=== PATIENT | male | born 1965 | race African-American/Black ===

== ENCOUNTER 2017-01-07 08:52 | Inpatient (IN) | payer OTHER ==
[2017-01-07 11:25] VITALS: BMI 24.9
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
[2017-01-07] MEDS ORDERED: chlordiazePOXIDE HCL 25 MG CAPSULE PO PRN (12:50)
[2017-01-07] MEDS ORDERED: MENTHOL/PHENOL 1 EACH UD MM PRN (12:50)
[2017-01-07] MEDS ORDERED: IBUPROFEN 400 MG TABLET (FP) PO PRN (12:50)
[2017-01-07] MEDS ORDERED: diphenhydrAMINE HCL 50 MG CAPSULE PO PRN (12:50)
[2017-01-07] MEDS ORDERED: MAG HYDROX/AL HYDROX/SIMETH 30 ML UNIT-DOSE CUP PO PRN (12:50)
[2017-01-07] MEDS ORDERED: MAGNESIUM HYDROX 2400MG/30ML ORAL SUSPENSION 30 ML CUP PO PRN (12:50)
[2017-01-07] MEDS ORDERED: NICOTINE POLACRILEX 4 MG GUM BUC PRN (12:50)
[2017-01-07] MEDS ORDERED: P-EPHED 60MG/TRIPROLIDI 2.5MG TABLET PO PRN (12:50)
[2017-01-07] MEDS ORDERED: LOPERAMIDE HCL 2 MG CAPSULE PO PRN (12:50)
[2017-01-07] MEDS ORDERED: MAGNESIUM CITRATE 300 ML BOTTLE PO PRN (12:50)
[2017-01-07] MEDS ORDERED: hydrOXYzine PAMOATE 50 MG CAPSULE (FP) PO PRN (12:50)
[2017-01-07] MEDS ORDERED: guaiFENesin/D-METHORPHAN HB 10 ML UNIT-DOSE CUPS PO PRN (12:50)
[2017-01-07] MEDS ORDERED: chlordiazePOXIDE HCL 25 MG CAPSULE PO ONE (12:58)
[2017-01-07] MEDS: chlordiazePOXIDE HCL 25 MG CAPSULE PO SCH ×2 (17:29→22:43)
[2017-01-07 20:20] LABS: URINE APPEARANCE CLEAR; URINE BILIRUBIN NEGATIVE (NEGATIVE); URINE BLOOD NEGATIVE (NEGATIVE); URINE COLOR YELLOW; URINE GLUCOSE (UA) NEGATIVE (NEGATIVE); URINE KETONE NEGATIVE (NEGATIVE); URINE LEUK ESTERASE NEGATIVE (NEGATIVE); URINE NITRITE NEGATIVE (NEGATIVE); URINE UROBILINOGEN NEGATIVE E.U./dl (0.2-1.0)
[2017-01-07 21:04] LABS: URINE PROTEIN 1+ (NEGATIVE)
[2017-01-07 21:10] LABS: URINE MUCUS MODERATE; URINE RBC 1 /hpf (0-3); URINE WBC 3 /hpf (3-5)
[2017-01-07] MEDS: THIAMINE HCL 100 MG TABLET (FP) PO SCH (22:43)
[2017-01-08 05:17] LABS: HIV 1 & 2 AB NEGATIVE; HIV 1 AGp24 NEGATIVE
[2017-01-08] MEDS: chlordiazePOXIDE HCL 25 MG CAPSULE PO SCH ×4 (06:08→22:18)
--- NOTE | 2017-01-08 09:23 | EKG ---
Test Reason : Blood Pressure : / mmHG Vent. Rate : 075 BPM Atrial Rate : 075 BPM P-R Int : 166 ms QRS Dur : 088 ms QT Int : 380 ms P-R-T Axes : 079 084 056 degrees QTc Int : 424 ms NORMAL SINUS RHYTHM NONSPECIFIC T WAVE ABNORMALITY ABNORMAL ECG WHEN COMPARED WITH ECG OF 25-NOV-2016 17:54, ST NO LONGER ELEVATED IN INFERIOR LEADS NONSPECIFIC T WAVE ABNORMALITY NOW EVIDENT IN LATERAL LEADS Confirmed by PATTI ESCALERA MD ([id number]) on 01/08/2017 9:23:29 AM Referred By: Ernie Daly Confirmed By:PATTI ESCALERA MD
[2017-01-08 09:54] LABS: MCH 26.4 pg (25.7-33.7); MCHC 32.5 g/dl (32.0-35.9); MEAN CELL VOLUME 81.1 fl (80-96); MEAN PLT VOLUME 8.6 fl (7.5-11.1); PLATELET COUNT 339 K/MM3 (134-434); RDW 13.9 % (11.9-15.9); WHITE BLOOD COUNT 8.4 K/mm3 (4.0-10.0)
[2017-01-08] MEDS: PRENATAL VITAMINS W/ FOLIC ACID TABLET (FP) PO SCH (10:12)
[2017-01-08] MEDS: NICOTINE 21 MG/24 HOURS TOPICAL PATCH TD SCH (10:13)
[2017-01-08 10:16] LABS: ALBUMIN 4.1 g/dl (3.4-5.0); ANION GAP 12 (8-16); BILIRUBIN,TOTAL 0.5 mg/dL (0.2-1.0); CO2 29 mmol/L (21-32); COCKROFT - GAULT 103.16; GLUCOSE,RANDOM 75 mg/dL (74-106); SGOT/AST 17 U/L (15-37); SGPT/ALT 25 U/L (12-78); TOT PROT 7.9 g/dl (6.4-8.2)
[2017-01-08 10:17] LABS: ALK PHOS 73 U/L (45-117)
--- NOTE | 2017-01-08 10:47 | PN ---
[facility] CIWA - CIWA Score Nausea/Vomitin-No Nausea/No Vomiting Muscle Tremors: 4-Moderate,w/Arms Extend Anxiety: 4-Mod. Anxious/Guarded Agitation: 4-Moderately Restless Paroxysmal Sweats: 1-Minimal Palms Moist Orientation: 0-Oriented Tacttile Disturbances: 3-Moderate Itch/Numb/Burn Auditory Disturbances: 0-None Visual Disturbances: 0-None Headache: 0-None Present CIWA-Ar Total Score: 16 S Progress Note (SOAP) Subjective: ANXIETY,SWEATS,IRRITABILITY,AGITATION/ANGRY OUTBURSTS AT STAFF. Objective: 01/08/17 10:45 Vital Signs Temperature 96.6 F L 01/08/17 10:35 Pulse Rate 77 01/08/17 10:35 Respiratory Rate 18 01/08/17 10:35 Blood Pressure 116/82 01/08/17 10:35 O2 Sat by Pulse Oximetry (%) Laboratory Last Values WBC 8.4 K/mm3 (4.0-10.0) D 01/08/17 06:00 RBC 5.59 M/mm3 (4.00-5.60) 01/08/17 06:00 Hgb 14.7 GM/dL (11.7-16.9) 01/08/17 06:00 Hct 45.4 % (35.4-49) 01/08/17 06:00 MCV 81.1 fl (80-96) 01/08/17 06:00 MCHC 32.5 g/dl (32.0-35.9) 01/08/17 06:00 RDW 13.9 % (11.9-15.9) 01/08/17 06:00 Plt Count 339 K/MM3 (134-434) 01/08/17 06:00 MPV 8.6 fl (7.5-11.1) 01/08/17 06:00 Sodium 137 mmol/L (136-145) 01/08/17 06:00 Potassium 3.9 mmol/L (3.5-5.1) 01/08/17 06:00 Chloride 96 mmol/L (98-107) L 01/08/17 06:00 Carbon Dioxide 29 mmol/L (21-32) 01/08/17 06:00 Anion Gap 12 (8-16) 01/08/17 06:00 BUN 12 mg/dL (7-18) D 01/08/17 06:00 Creatinine 1.0 mg/dL (0.7-1.3) 01/08/17 06:00 Creat Clearance w eGFR > 60 (>60) 01/08/17 06:00 Random Glucose 75 mg/dL (74-106) D 01/08/17 06:00 Calcium 9.0 mg/dL (8.5-10.1) 01/08/17 06:00 Total Bilirubin 0.5 mg/dL (0.2-1.0) 01/08/17 06:00 AST 17 U/L (15-37) D 01/08/17 06:00 ALT 25 U/L (12-78) 01/08/17 06:00 Alkaline Phosphatase 73 U/L (45-117) D 01/08/17 06:00 Total Protein 7.9 g/dl (6.4-8.2) 01/08/17 06:00 Albumin 4.1 g/dl (3.4-5.0) 01/08/17 06:00 Urine Color Yellow 01/07/17 14:00 Urine Appearance Clear 01/07/17 14:00 Urine pH 5.0 (5.0-8.0) 01/07/17 14:00 Ur Specific [place] 1.021 (1.001-1.035) 01/07/17 14:00 Urine Protein 1+ (NEGATIVE) H 01/07/17 14:00 Urine Glucose (UA) Negative (NEGATIVE) 01/07/17 14:00 Urine Ketones Negative (NEGATIVE) 01/07/17 14:00 Urine Blood Negative (NEGATIVE) 01/07/17 14:00 Urine Nitrite Negative (NEGATIVE) 01/07/17 14:00 Urine Bilirubin Negative (NEGATIVE) 01/07/17 14:00 Urine Urobilinogen Negative E.U./dl (0.2-1.0) 01/07/17 14:00 Ur Leukocyte Esterase Negative (NEGATIVE) 01/07/17 14:00 Urine RBC 1 /hpf (0-3) 01/07/17 14:00 Urine WBC 3 /hpf (3-5) 01/07/17 14:00 Ur Epithelial Cells Rare /hpf (FEW) 01/07/17 14:00 Urine Mucus Moderate 01/07/17 14:00 HIV 1&2 Antibody Screen Negative 01/07/17 12:00 HIV P24 Antigen Negative 01/07/17 12:00 Assessment: 01/08/17 10:46 WITHDRAWAL SX Plan: CONTINUE DETOX PSYCH CONSULT TODAY DIRECTED
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
[2017-01-08] MEDS: DIVALPROEX SODIUM 500 MG TABLET E.C. PO SCH (22:18)
[2017-01-08] MEDS: THIAMINE HCL 100 MG TABLET (FP) PO SCH (22:18)
[2017-01-09] MEDS: chlordiazePOXIDE HCL 25 MG CAPSULE PO SCH ×2 (05:21→10:12)
[2017-01-09] MEDS: NICOTINE 21 MG/24 HOURS TOPICAL PATCH TD SCH (10:12)
[2017-01-09] MEDS: PRENATAL VITAMINS W/ FOLIC ACID TABLET (FP) PO SCH (10:12)
[2017-01-09] MEDS: CITALOPRAM HYDROBROMIDE 20 MG TABLET (FP) PO SCH (10:12)
[2017-01-09] MEDS: DIVALPROEX SODIUM 500 MG TABLET E.C. PO SCH ×2 (10:12→22:23)
--- NOTE | 2017-01-09 14:00 | PN ---
[facility] CIWA - CIWA Score Nausea/Vomitin-No Nausea/No Vomiting Muscle Tremors: 3 Anxiety: 4-Mod. Anxious/Guarded Agitation: 3 Paroxysmal Sweats: 3 Orientation: 0-Oriented Tacttile Disturbances: 0-None Auditory Disturbances: 0-None Visual Disturbances: 0-None Headache: 0-None Present CIWA-Ar Total Score: 13 S Progress Note (SOAP) Subjective: Sweating,interrupted sleep,restless,tremors,anxiety. Objective: 01/09/17 14:00 Vital Signs - 8 hr 01/09/17 01/09/17 01/09/17 06:26 09:38 13:53 Temperature 97.5 F L 96.3 F L Pulse Rate 73 76 76 Respiratory 18 18 18 Rate Blood Pressure 125/82 115/73 127/84 Laboratory Last Values WBC 8.4 K/mm3 (4.0-10.0) D 01/08/17 06:00 RBC 5.59 M/mm3 (4.00-5.60) 01/08/17 06:00 Hgb 14.7 GM/dL (11.7-16.9) 01/08/17 06:00 Hct 45.4 % (35.4-49) 01/08/17 06:00 MCV 81.1 fl (80-96) 01/08/17 06:00 MCHC 32.5 g/dl (32.0-35.9) 01/08/17 06:00 RDW 13.9 % (11.9-15.9) 01/08/17 06:00 Plt Count 339 K/MM3 (134-434) 01/08/17 06:00 MPV 8.6 fl (7.5-11.1) 01/08/17 06:00 Sodium 137 mmol/L (136-145) 01/08/17 06:00 Potassium 3.9 mmol/L (3.5-5.1) 01/08/17 06:00 Chloride 96 mmol/L (98-107) L 01/08/17 06:00 Carbon Dioxide 29 mmol/L (21-32) 01/08/17 06:00 Anion Gap 12 (8-16) 01/08/17 06:00 BUN 12 mg/dL (7-18) D 01/08/17 06:00 Creatinine 1.0 mg/dL (0.7-1.3) 01/08/17 06:00 Creat Clearance w eGFR > 60 (>60) 01/08/17 06:00 Random Glucose 75 mg/dL (74-106) D 01/08/17 06:00 Calcium 9.0 mg/dL (8.5-10.1) 01/08/17 06:00 Total Bilirubin 0.5 mg/dL (0.2-1.0) 01/08/17 06:00 AST 17 U/L (15-37) D 01/08/17 06:00 ALT 25 U/L (12-78) 01/08/17 06:00 Alkaline Phosphatase 73 U/L (45-117) D 01/08/17 06:00 Total Protein 7.9 g/dl (6.4-8.2) 01/08/17 06:00 Albumin 4.1 g/dl (3.4-5.0) 01/08/17 06:00 Urine Color Yellow 01/07/17 14:00 Urine Appearance Clear 01/07/17 14:00 Urine pH 5.0 (5.0-8.0) 01/07/17 14:00 Ur Specific [place] 1.021 (1.001-1.035) 01/07/17 14:00 Urine Protein 1+ (NEGATIVE) H 01/07/17 14:00 Urine Glucose (UA) Negative (NEGATIVE) 01/07/17 14:00 Urine Ketones Negative (NEGATIVE) 01/07/17 14:00 Urine Blood Negative (NEGATIVE) 01/07/17 14:00 Urine Nitrite Negative (NEGATIVE) 01/07/17 14:00 Urine Bilirubin Negative (NEGATIVE) 01/07/17 14:00 Urine Urobilinogen Negative E.U./dl (0.2-1.0) 01/07/17 14:00 Ur Leukocyte Esterase Negative (NEGATIVE) 01/07/17 14:00 Urine RBC 1 /hpf (0-3) 01/07/17 14:00 Urine WBC 3 /hpf (3-5) 01/07/17 14:00 Ur Epithelial Cells Rare /hpf (FEW) 01/07/17 14:00 Urine Mucus Moderate 01/07/17 14:00 Valproic Acid 6.878 ug/ml (50-100) L 01/09/17 10:05 RPR Titer Nonreactive (NONREACTIVE) 01/08/17 06:00 HIV 1&2 Antibody Screen Negative 01/07/17 12:00 HIV P24 Antigen Negative 01/07/17 12:00 labs noted Assessment: 01/09/17 14:02 Withdrawal sx. Plan: Continue detox
[2017-01-09] MEDS: chlordiazePOXIDE 5 MG CAPSULE PO SCH ×2 (17:21→22:23)
[2017-01-09] MEDS: THIAMINE HCL 100 MG TABLET (FP) PO SCH (22:23)
[2017-01-10] MEDS: chlordiazePOXIDE 5 MG CAPSULE PO SCH ×2 (05:30→10:11)
[2017-01-10] MEDS: PRENATAL VITAMINS W/ FOLIC ACID TABLET (FP) PO SCH (10:10)
[2017-01-10] MEDS: CITALOPRAM HYDROBROMIDE 20 MG TABLET (FP) PO SCH (10:10)
[2017-01-10] MEDS: NICOTINE 21 MG/24 HOURS TOPICAL PATCH TD SCH (10:11)
[2017-01-10] MEDS: DIVALPROEX SODIUM 500 MG TABLET E.C. PO SCH ×2 (10:11→22:16)
--- NOTE | 2017-01-10 13:23 | PN ---
[facility] Progress Note (SOAP) Subjective: Sweating,interrupted sleep,restless Objective: 01/10/17 13:30 Vital Signs - 8 hr 01/10/17 01/10/17 06:29 09:27 Temperature 97.1 F L 97.5 F L Pulse Rate 69 72 Respiratory 16 18 Rate Blood Pressure 112/74 120/77 Laboratory Tests 01/07/17 01/07/17 01/08/17 12:00 14:00 06:00 WBC 8.4 D RBC 5.59 Hgb 14.7 Hct 45.4 MCV 81.1 MCHC 32.5 RDW 13.9 Plt Count 339 MPV 8.6 Sodium Potassium Chloride Carbon Dioxide Anion Gap BUN Creatinine Creat Clearance w eGFR Random Glucose Calcium Total Bilirubin AST ALT Alkaline Phosphatase Total Protein Albumin Urine Color Yellow Urine Appearance Clear Urine pH 5.0 Ur Specific [place] 1.021 Urine Protein 1+ H Urine Glucose (UA) Negative Urine Ketones Negative Urine Blood Negative Urine Nitrite Negative Urine Bilirubin Negative Urine Urobilinogen Negative Ur Leukocyte Esterase Negative Urine RBC 1 Urine WBC 3 Ur Epithelial Cells Rare Urine Mucus Moderate Valproic Acid RPR Titer HIV 1&2 Antibody Screen Negative HIV P24 Antigen Negative 01/08/17 01/08/17 01/09/17 06:00 06:00 10:05 WBC RBC Hgb Hct MCV MCHC RDW Plt Count MPV Sodium 137 Potassium 3.9 Chloride 96 L Carbon Dioxide 29 Anion Gap 12 BUN 12 D Creatinine 1.0 Creat Clearance w eGFR > 60 Random Glucose 75 D Calcium 9.0 Total Bilirubin 0.5 AST 17 D ALT 25 Alkaline Phosphatase 73 D Total Protein 7.9 Albumin 4.1 Urine Color Urine Appearance Urine pH Ur Specific [place] Urine Protein Urine Glucose (UA) Urine Ketones Urine Blood Urine Nitrite Urine Bilirubin Urine Urobilinogen Ur Leukocyte Esterase Urine RBC Urine WBC Ur Epithelial Cells Urine Mucus Valproic Acid 6.878 L RPR Titer Nonreactive HIV 1&2 Antibody Screen HIV P24 Antigen labs noted Assessment: 01/10/17 13:30 Withdrawal sx. Plan: Continue detox
[2017-01-10] MEDS: chlordiazePOXIDE HCL 10 MG CAPSULE PO SCH ×2 (16:57→22:16)
[2017-01-10] MEDS: THIAMINE HCL 100 MG TABLET (FP) PO SCH (22:16)
[2017-01-11] MEDS: chlordiazePOXIDE HCL 10 MG CAPSULE PO SCH ×2 (05:50→10:17)
--- NOTE | 2017-01-11 09:37 | DS ---
[facility] Detox Discharge Summary Admission Date: 01/07/17 Discharge Date: 01/11/17 - History Present History: Alcohol Dependence, Cannabis Dependence, Cocaine Dependence Pertinent Past History: PPD+ - Physical Exam Results Vital Signs: Vital Signs Temperature 97.1 F L 01/11/17 06:39 Pulse Rate 67 01/11/17 06:39 Respiratory Rate 18 01/11/17 06:39 Blood Pressure 110/75 01/11/17 06:39 O2 Sat by Pulse Oximetry (%) Pertinent Admission Physical Exam Findings: Withdrawal sx. Laboratory Last Values WBC 8.4 K/mm3 (4.0-10.0) D 01/08/17 06:00 RBC 5.59 M/mm3 (4.00-5.60) 01/08/17 06:00 Hgb 14.7 GM/dL (11.7-16.9) 01/08/17 06:00 Hct 45.4 % (35.4-49) 01/08/17 06:00 MCV 81.1 fl (80-96) 01/08/17 06:00 MCHC 32.5 g/dl (32.0-35.9) 01/08/17 06:00 RDW 13.9 % (11.9-15.9) 01/08/17 06:00 Plt Count 339 K/MM3 (134-434) 01/08/17 06:00 MPV 8.6 fl (7.5-11.1) 01/08/17 06:00 Sodium 137 mmol/L (136-145) 01/08/17 06:00 Potassium 3.9 mmol/L (3.5-5.1) 01/08/17 06:00 Chloride 96 mmol/L (98-107) L 01/08/17 06:00 Carbon Dioxide 29 mmol/L (21-32) 01/08/17 06:00 Anion Gap 12 (8-16) 01/08/17 06:00 BUN 12 mg/dL (7-18) D 01/08/17 06:00 Creatinine 1.0 mg/dL (0.7-1.3) 01/08/17 06:00 Creat Clearance w eGFR > 60 (>60) 01/08/17 06:00 Random Glucose 75 mg/dL (74-106) D 01/08/17 06:00 Calcium 9.0 mg/dL (8.5-10.1) 01/08/17 06:00 Total Bilirubin 0.5 mg/dL (0.2-1.0) 01/08/17 06:00 AST 17 U/L (15-37) D 01/08/17 06:00 ALT 25 U/L (12-78) 01/08/17 06:00 Alkaline Phosphatase 73 U/L (45-117) D 01/08/17 06:00 Total Protein 7.9 g/dl (6.4-8.2) 01/08/17 06:00 Albumin 4.1 g/dl (3.4-5.0) 01/08/17 06:00 Urine Color Yellow 01/07/17 14:00 Urine Appearance Clear 01/07/17 14:00 Urine pH 5.0 (5.0-8.0) 01/07/17 14:00 Ur Specific [place] 1.021 (1.001-1.035) 01/07/17 14:00 Urine Protein 1+ (NEGATIVE) H 01/07/17 14:00 Urine Glucose (UA) Negative (NEGATIVE) 01/07/17 14:00 Urine Ketones Negative (NEGATIVE) 01/07/17 14:00 Urine Blood Negative (NEGATIVE) 01/07/17 14:00 Urine Nitrite Negative (NEGATIVE) 01/07/17 14:00 Urine Bilirubin Negative (NEGATIVE) 01/07/17 14:00 Urine Urobilinogen Negative E.U./dl (0.2-1.0) 01/07/17 14:00 Ur Leukocyte Esterase Negative (NEGATIVE) 01/07/17 14:00 Urine RBC 1 /hpf (0-3) 01/07/17 14:00 Urine WBC 3 /hpf (3-5) 01/07/17 14:00 Ur Epithelial Cells Rare /hpf (FEW) 01/07/17 14:00 Urine Mucus Moderate 01/07/17 14:00 Valproic Acid 6.878 ug/ml (50-100) L 01/09/17 10:05 RPR Titer Nonreactive (NONREACTIVE) 01/08/17 06:00 HIV 1&2 Antibody Screen Negative 01/07/17 12:00 HIV P24 Antigen Negative 01/07/17 12:00 labs noted - Treatment Hospital Course: Detox Protocol Followed, Detoxed Safely, Responded well, Discharged Condition Good, Rehab Referral Accepted Patient has Accepted a Rehab Referral to: [facility] - Medication Discharge Medications: Ambulatory Orders Citalopram Hydrobromide [Celexa -] 20 mg PO DAILY #30 tablet 03/05/16 Divalproex [Depakote -] 500 mg PO BID #60 tablet.ec 03/05/16 Citalopram Hydrobromide [Celexa -] 20 mg PO DAILY #30 tablet 01/08/17 Divalproex [Depakote -] 500 mg PO BID #60 tablet.ec 01/08/17 - Diagnosis (1) Alcohol dependence with uncomplicated withdrawal Current Visit: Yes Status: Acute (2) Cannabis dependence, uncomplicated Current Visit: Yes Status: Acute (3) Cocaine dependence Current Visit: Yes Status: Acute (4) Substance induced mood disorder Current Visit: Yes Status: Acute (5) Bipolar II disorder Current Visit: Yes Status: Chronic (6) Positive PPD Current Visit: Yes Status: Chronic - AMA Did Patient Leave Against Medical Advice: No
[2017-01-11] MEDS: NICOTINE 21 MG/24 HOURS TOPICAL PATCH TD SCH (10:17)
[2017-01-11] MEDS: CITALOPRAM HYDROBROMIDE 20 MG TABLET (FP) PO SCH (10:17)
[2017-01-11] MEDS: DIVALPROEX SODIUM 500 MG TABLET E.C. PO SCH ×2 (10:17→21:46)
[2017-01-11] MEDS: PRENATAL VITAMINS W/ FOLIC ACID TABLET (FP) PO SCH (10:17)
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
[2017-01-11] MEDS: THIAMINE HCL 100 MG TABLET (FP) PO SCH (21:46)
[2017-01-12] MEDS: NICOTINE 21 MG/24 HOURS TOPICAL PATCH TD SCH (09:58)
[2017-01-12] MEDS: DIVALPROEX SODIUM 500 MG TABLET E.C. PO SCH ×2 (09:58→21:52)
[2017-01-12] MEDS: PRENATAL VITAMINS W/ FOLIC ACID TABLET (FP) PO SCH (09:58)
[2017-01-12] MEDS: CITALOPRAM HYDROBROMIDE 20 MG TABLET (FP) PO SCH (09:58)
[2017-01-12] MEDS: THIAMINE HCL 100 MG TABLET (FP) PO SCH (21:52)
[2017-01-13] MEDS: PRENATAL VITAMINS W/ FOLIC ACID TABLET (FP) PO SCH (10:15)
[2017-01-13] MEDS: CITALOPRAM HYDROBROMIDE 20 MG TABLET (FP) PO SCH (10:15)
[2017-01-13] MEDS: DIVALPROEX SODIUM 500 MG TABLET E.C. PO SCH ×2 (10:16→21:46)
[2017-01-13] MEDS: NICOTINE 21 MG/24 HOURS TOPICAL PATCH TD SCH (10:16)
[2017-01-13] MEDS: ACETAMINOPHEN 325 MG TABLET (FP) PO PRN (19:37)
[2017-01-13] MEDS: THIAMINE HCL 100 MG TABLET (FP) PO SCH (21:46)
[2017-01-14] MEDS: PRENATAL VITAMINS W/ FOLIC ACID TABLET (FP) PO SCH (10:20)
[2017-01-14] MEDS: NICOTINE 21 MG/24 HOURS TOPICAL PATCH TD SCH (10:20)
[2017-01-14] MEDS: DIVALPROEX SODIUM 500 MG TABLET E.C. PO SCH ×2 (10:20→21:52)
[2017-01-14] MEDS: CITALOPRAM HYDROBROMIDE 20 MG TABLET (FP) PO SCH (10:20)
[2017-01-14] MEDS: THIAMINE HCL 100 MG TABLET (FP) PO SCH (21:53)
[2017-01-15] MEDS: PRENATAL VITAMINS W/ FOLIC ACID TABLET (FP) PO SCH (10:11)
[2017-01-15] MEDS: CITALOPRAM HYDROBROMIDE 20 MG TABLET (FP) PO SCH (10:11)
[2017-01-15] MEDS: DIVALPROEX SODIUM 500 MG TABLET E.C. PO SCH ×2 (10:11→21:07)
[2017-01-15] MEDS: THIAMINE HCL 100 MG TABLET (FP) PO SCH (21:08)
[2017-01-16] MEDS: CITALOPRAM HYDROBROMIDE 20 MG TABLET (FP) PO SCH (10:10)
[2017-01-16] MEDS: DIVALPROEX SODIUM 500 MG TABLET E.C. PO SCH ×2 (10:10→21:44)
[2017-01-16] MEDS: PRENATAL VITAMINS W/ FOLIC ACID TABLET (FP) PO SCH (10:10)
[2017-01-16] MEDS: ACETAMINOPHEN 325 MG TABLET (FP) PO PRN (18:52)
[2017-01-16] MEDS: THIAMINE HCL 100 MG TABLET (FP) PO SCH (21:44)
[2017-01-17] MEDS: DIVALPROEX SODIUM 500 MG TABLET E.C. PO SCH ×2 (10:10→21:05)
[2017-01-17] MEDS: PRENATAL VITAMINS W/ FOLIC ACID TABLET (FP) PO SCH (10:10)
[2017-01-17] MEDS: CITALOPRAM HYDROBROMIDE 20 MG TABLET (FP) PO SCH (10:10)
[2017-01-17] MEDS: THIAMINE HCL 100 MG TABLET (FP) PO SCH (21:05)
[2017-01-18] MEDS: PRENATAL VITAMINS W/ FOLIC ACID TABLET (FP) PO SCH (10:34)
[2017-01-18] MEDS: DIVALPROEX SODIUM 500 MG TABLET E.C. PO SCH ×2 (10:34→21:39)
[2017-01-18] MEDS: CITALOPRAM HYDROBROMIDE 20 MG TABLET (FP) PO SCH (10:34)
[2017-01-18] MEDS: THIAMINE HCL 100 MG TABLET (FP) PO SCH (21:39)
[2017-01-19] MEDS: CITALOPRAM HYDROBROMIDE 20 MG TABLET (FP) PO SCH (10:25)
[2017-01-19] MEDS: PRENATAL VITAMINS W/ FOLIC ACID TABLET (FP) PO SCH (10:25)
[2017-01-19] MEDS: DIVALPROEX SODIUM 500 MG TABLET E.C. PO SCH ×2 (10:25→21:31)
[2017-01-19] MEDS: ACETAMINOPHEN 325 MG TABLET (FP) PO PRN (12:24)
[2017-01-19] MEDS: THIAMINE HCL 100 MG TABLET (FP) PO SCH (21:31)
[2017-01-20] MEDS: CITALOPRAM HYDROBROMIDE 20 MG TABLET (FP) PO SCH (10:28)
[2017-01-20] MEDS: PRENATAL VITAMINS W/ FOLIC ACID TABLET (FP) PO SCH (10:28)
[2017-01-20] MEDS: DIVALPROEX SODIUM 500 MG TABLET E.C. PO SCH ×2 (10:28→21:21)
[2017-01-20] MEDS: THIAMINE HCL 100 MG TABLET (FP) PO SCH (21:21)
[2017-01-21] MEDS: ACETAMINOPHEN 325 MG TABLET (FP) PO PRN (08:57)
[2017-01-21] MEDS: PRENATAL VITAMINS W/ FOLIC ACID TABLET (FP) PO SCH (10:13)
[2017-01-21] MEDS: DIVALPROEX SODIUM 500 MG TABLET E.C. PO SCH ×2 (10:13→21:20)
[2017-01-21] MEDS: CITALOPRAM HYDROBROMIDE 20 MG TABLET (FP) PO SCH (10:13)
[2017-01-21] MEDS: THIAMINE HCL 100 MG TABLET (FP) PO SCH (21:20)
[2017-01-22] MEDS: ACETAMINOPHEN 325 MG TABLET (FP) PO PRN (09:27)
[2017-01-22] MEDS: CITALOPRAM HYDROBROMIDE 20 MG TABLET (FP) PO SCH (09:28)
[2017-01-22] MEDS: DIVALPROEX SODIUM 500 MG TABLET E.C. PO SCH ×2 (09:28→21:23)
[2017-01-22] MEDS: PRENATAL VITAMINS W/ FOLIC ACID TABLET (FP) PO SCH (09:28)
--- NOTE | 2017-01-22 10:03 | PN ---
BHS Progress Note Note: C/O tension headache & spasm of muscle in the caodaism area. Vital Signs - 8 hr 01/22/17 01/22/17 03:30 06:50 Temperature 98.1 F Pulse Rate 63 Respiratory 18 18 Rate Blood Pressure 127/70 Laboratory Tests 01/07/17 01/07/17 01/08/17 12:00 14:00 06:00 WBC 8.4 D RBC 5.59 Hgb 14.7 Hct 45.4 MCV 81.1 MCHC 32.5 RDW 13.9 Plt Count 339 MPV 8.6 Sodium Potassium Chloride Carbon Dioxide Anion Gap BUN Creatinine Creat Clearance w eGFR Random Glucose Calcium Total Bilirubin AST ALT Alkaline Phosphatase Total Protein Albumin Urine Color Yellow Urine Appearance Clear Urine pH 5.0 Ur Specific [place] 1.021 Urine Protein 1+ H Urine Glucose (UA) Negative Urine Ketones Negative Urine Blood Negative Urine Nitrite Negative Urine Bilirubin Negative Urine Urobilinogen Negative Ur Leukocyte Esterase Negative Urine RBC 1 Urine WBC 3 Ur Epithelial Cells Rare Urine Mucus Moderate Valproic Acid RPR Titer HIV 1&2 Antibody Screen Negative HIV P24 Antigen Negative 01/08/17 01/08/17 01/09/17 06:00 06:00 10:05 WBC RBC Hgb Hct MCV MCHC RDW Plt Count MPV Sodium 137 Potassium 3.9 Chloride 96 L Carbon Dioxide 29 Anion Gap 12 BUN 12 D Creatinine 1.0 Creat Clearance w eGFR > 60 Random Glucose 75 D Calcium 9.0 Total Bilirubin 0.5 AST 17 D ALT 25 Alkaline Phosphatase 73 D Total Protein 7.9 Albumin 4.1 Urine Color Urine Appearance Urine pH Ur Specific [place] Urine Protein Urine Glucose (UA) Urine Ketones Urine Blood Urine Nitrite Urine Bilirubin Urine Urobilinogen Ur Leukocyte Esterase Urine RBC Urine WBC Ur Epithelial Cells Urine Mucus Valproic Acid 6.878 L RPR Titer Nonreactive HIV 1&2 Antibody Screen HIV P24 Antigen labs noted Flexeril 10mg tid
[2017-01-22] MEDS: CYCLOBENZAPRINE HCL 10 MG TABLET (FP) PO SCH ×2 (13:06→21:23)
[2017-01-22] MEDS: THIAMINE HCL 100 MG TABLET (FP) PO SCH (21:23)
[2017-01-23] MEDS: CYCLOBENZAPRINE HCL 10 MG TABLET (FP) PO SCH ×3 (06:14→21:34)
[2017-01-23] MEDS: PRENATAL VITAMINS W/ FOLIC ACID TABLET (FP) PO SCH (10:10)
[2017-01-23] MEDS: DIVALPROEX SODIUM 500 MG TABLET E.C. PO SCH ×2 (10:10→21:34)
[2017-01-23] MEDS: CITALOPRAM HYDROBROMIDE 20 MG TABLET (FP) PO SCH (10:10)
[2017-01-23] MEDS: THIAMINE HCL 100 MG TABLET (FP) PO SCH (21:34)
[2017-01-24] MEDS: CYCLOBENZAPRINE HCL 10 MG TABLET (FP) PO SCH ×3 (06:12→21:27)
[2017-01-24] MEDS: DIVALPROEX SODIUM 500 MG TABLET E.C. PO SCH ×2 (10:07→21:26)
[2017-01-24] MEDS: PRENATAL VITAMINS W/ FOLIC ACID TABLET (FP) PO SCH (10:07)
[2017-01-24] MEDS: CITALOPRAM HYDROBROMIDE 20 MG TABLET (FP) PO SCH (10:07)
[2017-01-24] MEDS: THIAMINE HCL 100 MG TABLET (FP) PO SCH (21:26)
[2017-01-25] MEDS: CYCLOBENZAPRINE HCL 10 MG TABLET (FP) PO SCH ×3 (06:38→21:33)
[2017-01-25] MEDS: PRENATAL VITAMINS W/ FOLIC ACID TABLET (FP) PO SCH (09:58)
[2017-01-25] MEDS: CITALOPRAM HYDROBROMIDE 20 MG TABLET (FP) PO SCH (09:58)
[2017-01-25] MEDS: DIVALPROEX SODIUM 500 MG TABLET E.C. PO SCH ×2 (09:59→21:33)
[2017-01-25] MEDS: THIAMINE HCL 100 MG TABLET (FP) PO SCH (21:33)
[2017-01-26] MEDS: CYCLOBENZAPRINE HCL 10 MG TABLET (FP) PO SCH ×3 (06:04→21:28)
[2017-01-26] MEDS: PRENATAL VITAMINS W/ FOLIC ACID TABLET (FP) PO SCH (10:25)
[2017-01-26] MEDS: CITALOPRAM HYDROBROMIDE 20 MG TABLET (FP) PO SCH (10:25)
[2017-01-26] MEDS: DIVALPROEX SODIUM 500 MG TABLET E.C. PO SCH ×2 (10:25→21:28)
[2017-01-26] MEDS: THIAMINE HCL 100 MG TABLET (FP) PO SCH (21:28)
[2017-01-27] MEDS: CYCLOBENZAPRINE HCL 10 MG TABLET (FP) PO SCH ×3 (06:07→21:28)
[2017-01-27] MEDS: PRENATAL VITAMINS W/ FOLIC ACID TABLET (FP) PO SCH (10:02)
[2017-01-27] MEDS: CITALOPRAM HYDROBROMIDE 20 MG TABLET (FP) PO SCH (10:02)
[2017-01-27] MEDS: DIVALPROEX SODIUM 500 MG TABLET E.C. PO SCH ×2 (10:02→21:28)
[2017-01-27] MEDS: THIAMINE HCL 100 MG TABLET (FP) PO SCH (21:28)
[2017-01-28] MEDS: CYCLOBENZAPRINE HCL 10 MG TABLET (FP) PO SCH ×3 (06:07→21:28)
[2017-01-28] MEDS: DIVALPROEX SODIUM 500 MG TABLET E.C. PO SCH ×2 (10:17→21:28)
[2017-01-28] MEDS: PRENATAL VITAMINS W/ FOLIC ACID TABLET (FP) PO SCH (10:17)
[2017-01-28] MEDS: CITALOPRAM HYDROBROMIDE 20 MG TABLET (FP) PO SCH (10:17)
[2017-01-28] MEDS: THIAMINE HCL 100 MG TABLET (FP) PO SCH (21:28)
[2017-01-29] MEDS: CYCLOBENZAPRINE HCL 10 MG TABLET (FP) PO SCH ×3 (06:07→21:24)
[2017-01-29] MEDS: CITALOPRAM HYDROBROMIDE 20 MG TABLET (FP) PO SCH (10:00)
[2017-01-29] MEDS: PRENATAL VITAMINS W/ FOLIC ACID TABLET (FP) PO SCH (10:00)
[2017-01-29] MEDS: DIVALPROEX SODIUM 500 MG TABLET E.C. PO SCH ×2 (10:00→21:24)
[2017-01-29] MEDS: THIAMINE HCL 100 MG TABLET (FP) PO SCH (21:24)
[2017-01-30] MEDS: CYCLOBENZAPRINE HCL 10 MG TABLET (FP) PO SCH ×3 (06:12→21:20)
[2017-01-30] MEDS: CITALOPRAM HYDROBROMIDE 20 MG TABLET (FP) PO SCH (10:10)
[2017-01-30] MEDS: DIVALPROEX SODIUM 500 MG TABLET E.C. PO SCH ×2 (10:10→21:20)
[2017-01-30] MEDS: PRENATAL VITAMINS W/ FOLIC ACID TABLET (FP) PO SCH (10:10)
[2017-01-30] MEDS: THIAMINE HCL 100 MG TABLET (FP) PO SCH (21:20)
[2017-01-31] MEDS: CYCLOBENZAPRINE HCL 10 MG TABLET (FP) PO SCH ×3 (06:32→21:19)
[2017-01-31] MEDS: DIVALPROEX SODIUM 500 MG TABLET E.C. PO SCH ×2 (10:07→21:19)
[2017-01-31] MEDS: PRENATAL VITAMINS W/ FOLIC ACID TABLET (FP) PO SCH (10:07)
[2017-01-31] MEDS: CITALOPRAM HYDROBROMIDE 20 MG TABLET (FP) PO SCH (10:07)
[2017-01-31] MEDS: THIAMINE HCL 100 MG TABLET (FP) PO SCH (21:19)
[2017-02-01] MEDS: CYCLOBENZAPRINE HCL 10 MG TABLET (FP) PO SCH ×3 (06:02→21:30)
[2017-02-01] MEDS: CITALOPRAM HYDROBROMIDE 20 MG TABLET (FP) PO SCH (10:23)
[2017-02-01] MEDS: PRENATAL VITAMINS W/ FOLIC ACID TABLET (FP) PO SCH (10:23)
[2017-02-01] MEDS: DIVALPROEX SODIUM 500 MG TABLET E.C. PO SCH ×2 (10:23→21:30)
[2017-02-01] MEDS: THIAMINE HCL 100 MG TABLET (FP) PO SCH (21:30)
[2017-02-02] MEDS: CYCLOBENZAPRINE HCL 10 MG TABLET (FP) PO SCH ×3 (05:48→21:28)
[2017-02-02] MEDS: CITALOPRAM HYDROBROMIDE 20 MG TABLET (FP) PO SCH (10:17)
[2017-02-02] MEDS: PRENATAL VITAMINS W/ FOLIC ACID TABLET (FP) PO SCH (10:17)
[2017-02-02] MEDS: DIVALPROEX SODIUM 500 MG TABLET E.C. PO SCH ×2 (10:17→21:28)
[2017-02-02] MEDS: THIAMINE HCL 100 MG TABLET (FP) PO SCH (21:28)
[2017-02-03] MEDS: CYCLOBENZAPRINE HCL 10 MG TABLET (FP) PO SCH ×3 (06:01→21:19)
[2017-02-03] MEDS: PRENATAL VITAMINS W/ FOLIC ACID TABLET (FP) PO SCH (09:56)
[2017-02-03] MEDS: CITALOPRAM HYDROBROMIDE 20 MG TABLET (FP) PO SCH (09:56)
[2017-02-03] MEDS: DIVALPROEX SODIUM 500 MG TABLET E.C. PO SCH ×2 (09:57→21:19)
[2017-02-03] MEDS: THIAMINE HCL 100 MG TABLET (FP) PO SCH (21:19)
[2017-02-04] MEDS: CYCLOBENZAPRINE HCL 10 MG TABLET (FP) PO SCH ×3 (06:06→21:25)
[2017-02-04] MEDS: PRENATAL VITAMINS W/ FOLIC ACID TABLET (FP) PO SCH (10:23)
[2017-02-04] MEDS: CITALOPRAM HYDROBROMIDE 20 MG TABLET (FP) PO SCH (10:23)
[2017-02-04] MEDS: DIVALPROEX SODIUM 500 MG TABLET E.C. PO SCH ×2 (10:23→21:25)
[2017-02-04] MEDS: THIAMINE HCL 100 MG TABLET (FP) PO SCH (21:25)
[2017-02-05] MEDS: CYCLOBENZAPRINE HCL 10 MG TABLET (FP) PO SCH ×3 (06:09→21:29)
[2017-02-05] MEDS: CITALOPRAM HYDROBROMIDE 20 MG TABLET (FP) PO SCH (09:43)
[2017-02-05] MEDS: DIVALPROEX SODIUM 500 MG TABLET E.C. PO SCH ×2 (09:43→21:29)
[2017-02-05] MEDS: PRENATAL VITAMINS W/ FOLIC ACID TABLET (FP) PO SCH (09:43)
[2017-02-05] MEDS: THIAMINE HCL 100 MG TABLET (FP) PO SCH (21:29)
[2017-02-06] MEDS: CYCLOBENZAPRINE HCL 10 MG TABLET (FP) PO SCH ×3 (05:53→21:25)
[2017-02-06] MEDS: CITALOPRAM HYDROBROMIDE 20 MG TABLET (FP) PO SCH (10:04)
[2017-02-06] MEDS: DIVALPROEX SODIUM 500 MG TABLET E.C. PO SCH ×2 (10:04→21:25)
[2017-02-06] MEDS: PRENATAL VITAMINS W/ FOLIC ACID TABLET (FP) PO SCH (10:04)
[2017-02-06] MEDS: THIAMINE HCL 100 MG TABLET (FP) PO SCH (21:25)
[2017-02-07] MEDS: CYCLOBENZAPRINE HCL 10 MG TABLET (FP) PO SCH ×3 (05:53→21:21)
[2017-02-07] MEDS: DIVALPROEX SODIUM 500 MG TABLET E.C. PO SCH ×2 (10:05→21:20)
[2017-02-07] MEDS: PRENATAL VITAMINS W/ FOLIC ACID TABLET (FP) PO SCH (10:05)
[2017-02-07] MEDS: CITALOPRAM HYDROBROMIDE 20 MG TABLET (FP) PO SCH (10:05)
[2017-02-07] MEDS: THIAMINE HCL 100 MG TABLET (FP) PO SCH (21:20)
[2017-02-08] MEDS: CYCLOBENZAPRINE HCL 10 MG TABLET (FP) PO SCH (06:03)
[2017-02-08 06:35] VITALS: BP 130/85; PULSE 81; TEMP 97.9
[2017-02-08] MEDS: DIVALPROEX SODIUM 500 MG TABLET E.C. PO SCH (10:15)
[2017-02-08] MEDS: PRENATAL VITAMINS W/ FOLIC ACID TABLET (FP) PO SCH (10:15)
[2017-02-08] MEDS: CITALOPRAM HYDROBROMIDE 20 MG TABLET (FP) PO SCH (10:15)
--- NOTE | 2017-02-08 11:58 | PN ---
Psychiatric Progress Note Vital Signs: Vital Signs Period Temp Pulse Resp BP Sys/Haynes Pulse Ox Last 24 Hr 97.9 F 81 16-18 130/85 Date of Session: 02/08/17 Chief Complaint:: discharge visit HPI: Patient has addressed alcohol, cocaine dependence comorbid Bipolar I disorder. ROS: WNL. Current Side Effect: No Lab tests ordered: No Lab tests reviewed: Yes Provider note:: Patient has completed today his treatment and met his goals, will continue to address his issues at [facility] in [place]. He gained insights into importance of changing attitude for the utilization of supports to prevent relapses. Patient was encouraged to continue maintain abstinence and use alternative ways to cope with stressors. Medications Depakote and Celexa well tolerated, patient reports has been feeling much better since he started treatment at [facility], scripts provided for 3 days. Patient is stable for discharge. Total face to face time:: 25 Mental Status Exam - Mental Status Exam Alert and Oriented to: Time, Place, Person Cognitive Function: Good Patient Appearance: Well Groomed Mood: Hopeful Affect: Appropriate, Mood Congruent Patient Behavior: Appropriate, Cooperative Speech Pattern: Appropriate Voice Loudness: Normal Thought Process: Intact, Goal Oriented Thought Disorder: Not Present Hallucinations: Denies Suicidal Ideation: Denies Homicidal Ideation: Denies Insight/Judgement: Fair Sleep: Fair Appetite: Fair Muscle strength/Tone: Normal Gait/Station: Normal
== END 2017-02-08 10:30 | disposition home or self-care (01) | DRG 895 ==
LOC: YASAS 08:52 → Y3N 12:34 → Y5N 01-11 13:21
PROVIDERS: ADMIT Internal Medicine; ATTEND Psychiatry & Neurology Psychiatry
PROC: HZ2ZZZZ Detoxification Services for Substance Abuse Treatment (ICD-10-PCS; principal; 2017-01-07)
PROC: HZ42ZZZ Group Counseling for Substance Abuse Treatment, Cognitive-Behavioral (ICD-10-PCS; 2017-01-11)
DX: F10.230 Alcohol dependence with withdrawal, uncomplicated (principal); F14.20 Cocaine dependence, uncomplicated; F31.81 Bipolar II disorder; F12.10 Cannabis abuse, uncomplicated; F19.24 Other psychoactive substance dependence with psychoactive substance-induced mood disorder; R76.11 Nonspecific reaction to tuberculin skin test without active tuberculosis
CPT/HCPCS: 36415; 71020-TC; 80053; 80164; 81003; 81015; 85027; 86593; 87389; 93005; 93010

== ENCOUNTER 2017-06-18 14:35 | Inpatient (IN) | payer OTHER ==
[2017-06-18 15:35] VITALS: BMI 25.4
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
[2017-06-18] MEDS ORDERED: hydrOXYzine PAMOATE 50 MG CAPSULE (FP) PO PRN (19:36)
[2017-06-18] MEDS ORDERED: MENTHOL/PHENOL 1 EACH UD MM PRN (19:36)
[2017-06-18] MEDS ORDERED: chlordiazePOXIDE HCL 25 MG CAPSULE PO ONE (19:36)
[2017-06-18] MEDS ORDERED: MAGNESIUM CITRATE 300 ML BOTTLE PO PRN (19:36)
[2017-06-18] MEDS ORDERED: P-EPHED 60MG/TRIPROLIDI 2.5MG TABLET PO PRN (19:36)
[2017-06-18] MEDS ORDERED: diphenhydrAMINE HCL 50 MG CAPSULE PO PRN (19:36)
[2017-06-18] MEDS ORDERED: guaiFENesin/D-METHORPHAN HB 10 ML UNIT-DOSE CUPS PO PRN (19:36)
[2017-06-18] MEDS ORDERED: IBUPROFEN 400 MG TABLET (FP) PO PRN (19:36)
[2017-06-18] MEDS ORDERED: MAGNESIUM HYDROX 2400MG/30ML ORAL SUSPENSION 30 ML CUP PO PRN (19:36)
[2017-06-18] MEDS ORDERED: chlordiazePOXIDE HCL 25 MG CAPSULE PO PRN (19:36)
[2017-06-18] MEDS ORDERED: MAG HYDROX/AL HYDROX/SIMETH 30 ML UNIT-DOSE CUP PO PRN (19:36)
[2017-06-18] MEDS ORDERED: LOPERAMIDE HCL 2 MG CAPSULE PO PRN (19:36)
[2017-06-18] MEDS ORDERED: ACETAMINOPHEN 325 MG TABLET (FP) PO PRN (19:36)
[2017-06-18] MEDS: chlordiazePOXIDE HCL 25 MG CAPSULE PO SCH (23:09)
[2017-06-18] MEDS: MINERAL OIL/PETROLAT/WATER TOPICAL CREAM 113 GM JAR TP SCH (23:09)
[2017-06-18] MEDS: THIAMINE HCL 100 MG TABLET (FP) PO SCH (23:09)
[2017-06-18 23:28] LABS: URINE APPEARANCE SLCLOUDY; URINE BILIRUBIN NEGATIVE (NEGATIVE); URINE BLOOD NEGATIVE (NEGATIVE); URINE COLOR AMBER; URINE GLUCOSE (UA) NEGATIVE (NEGATIVE); URINE KETONE NEGATIVE (NEGATIVE); URINE LEUK ESTERASE 2+ (NEGATIVE); URINE NITRITE NEGATIVE (NEGATIVE); URINE PROTEIN NEGATIVE (NEGATIVE); URINE UROBILINOGEN 4.0 E.U/dl mg/dL (0.2-1.0)
[2017-06-18 23:38] LABS: URINE MUCUS MANY; URINE RBC 3 /hpf (0-3); URINE WBC 24 /hpf (3-5)
[2017-06-19] MEDS: chlordiazePOXIDE HCL 25 MG CAPSULE PO SCH ×4 (06:11→23:46)
--- NOTE | 2017-06-19 10:26 | PN ---
S CIWA - CIWA Score Nausea/Vomitin Muscle Tremors: 2 Anxiety: 2 Agitation: 2 Paroxysmal Sweats: 2 Orientation: 0-Oriented Tacttile Disturbances: 1-Very Mild Itch/Numbness Auditory Disturbances: 1-Very Mild Visual Disturbances: 1-Very Mild Sensitivity Headache: 2-Mild CIWA-Ar Total Score: 15 BHS Progress Note (SOAP) Subjective: Interrupted sleep, shakes, sweats and abdominal cramps Objective: 06/19/17 10:25 Vital Signs - 8 hr 06/19/17 06/19/17 03:30 06:27 Temperature 98.1 F Pulse Rate 98 H Respiratory 18 20 Rate Blood Pressure 145/70 Laboratory Last Values Urine Color Jacqui 06/18/17 21:57 Urine Appearance Slcloudy 06/18/17 21:57 Urine pH 5.0 (5.0-8.0) 06/18/17 21:57 Urine Protein Negative (NEGATIVE) 06/18/17 21:57 Urine Glucose (UA) Negative (NEGATIVE) 06/18/17 21:57 Urine Ketones Negative (NEGATIVE) 06/18/17 21:57 Urine Blood Negative (NEGATIVE) 06/18/17 21:57 Urine Nitrite Negative (NEGATIVE) 06/18/17 21:57 Urine Bilirubin Negative (NEGATIVE) 06/18/17 21:57 Urine Urobilinogen 4.0 e.u/dl mg/dL (0.2-1.0) 06/18/17 21:57 Urine RBC 3 /hpf (0-3) 06/18/17 21:57 Urine WBC 24 /hpf (3-5) 06/18/17 21:57 Ur Epithelial Cells Rare /hpf (FEW) 06/18/17 21:57 Urine Mucus Many 06/18/17 21:57 Labs pending Assessment: 06/19/17 10:26 withdrawal sx Plan: continue detox
[2017-06-19 10:36] LABS: MCH 26.2 pg (25.7-33.7); MCHC 32.4 g/dl (32.0-35.9); MEAN CELL VOLUME 80.8 fl (80-96); MEAN PLT VOLUME 8.2 fl (7.5-11.1); PLATELET COUNT 255 K/MM3 (134-434); RDW 13.3 % (11.9-15.9); WHITE BLOOD COUNT 4.3 K/mm3 (4.0-10.0)
[2017-06-19 10:57] LABS: ALBUMIN 3.1 g/dl (3.4-5.0); ALK PHOS 54 U/L (45-117); ANION GAP 3 (8-16); BILIRUBIN,TOTAL 0.4 mg/dL (0.2-1.0); CALCIUM 8.4 mg/dL (8.5-10.1); CO2 31 mmol/L (21-32); CREATININE 0.9 mg/dL (0.7-1.3); GLUCOSE,RANDOM 95 mg/dL (74-106); SGOT/AST 13 U/L (15-37); SGPT/ALT 25 U/L (12-78); TOT PROT 6.3 g/dl (6.4-8.2)
[2017-06-19] MEDS: PRENATAL VITAMINS W/ FOLIC ACID TABLET (FP) PO SCH (11:15)
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
[2017-06-19] MEDS: CITALOPRAM HYDROBROMIDE 20 MG TABLET (FP) PO SCH (12:38)
[2017-06-19] MEDS: DIVALPROEX SODIUM 250 MG TABLET E.C. (FP) PO SCH (23:46)
[2017-06-19] MEDS: MINERAL OIL/PETROLAT/WATER TOPICAL CREAM 113 GM JAR TP SCH (23:47)
[2017-06-19] MEDS: THIAMINE HCL 100 MG TABLET (FP) PO SCH (23:47)
[2017-06-20] MEDS: chlordiazePOXIDE HCL 25 MG CAPSULE PO SCH ×3 (06:30→17:55)
[2017-06-20] MEDS: PRENATAL VITAMINS W/ FOLIC ACID TABLET (FP) PO SCH (10:10)
[2017-06-20] MEDS: CITALOPRAM HYDROBROMIDE 20 MG TABLET (FP) PO SCH (10:10)
[2017-06-20] MEDS: DIVALPROEX SODIUM 250 MG TABLET E.C. (FP) PO SCH ×2 (10:10→22:08)
--- NOTE | 2017-06-20 14:32 | PN ---
[facility] CIWA - CIWA Score Nausea/Vomitin-No Nausea/No Vomiting Muscle Tremors: 3 Anxiety: 4-Mod. Anxious/Guarded Agitation: 4-Moderately Restless Paroxysmal Sweats: 3 Orientation: 0-Oriented Tacttile Disturbances: 0-None Auditory Disturbances: 0-None Visual Disturbances: 0-None Headache: 0-None Present CIWA-Ar Total Score: 14 BHS Progress Note (SOAP) Subjective: Anxiety,tremors,sweating,interrupted sleep,restless Objective: 06/20/17 14:31 Vital Signs - 8 hr 06/20/17 06/20/17 10:10 13:28 Temperature 97.7 F 96.5 F L Pulse Rate 76 76 Respiratory 18 18 Rate Blood Pressure 133/81 116/88 Laboratory Last Values WBC 4.3 K/mm3 (4.0-10.0) D 06/19/17 08:00 RBC 5.22 M/mm3 (4.00-5.60) 06/19/17 08:00 Hgb 13.7 GM/dL (11.7-16.9) 06/19/17 08:00 Hct 42.2 % (35.4-49) 06/19/17 08:00 MCV 80.8 fl (80-96) 06/19/17 08:00 MCH 26.2 pg (25.7-33.7) 06/19/17 08:00 MCHC 32.4 g/dl (32.0-35.9) 06/19/17 08:00 RDW 13.3 % (11.9-15.9) 06/19/17 08:00 Plt Count 255 K/MM3 (134-434) D 06/19/17 08:00 MPV 8.2 fl (7.5-11.1) 06/19/17 08:00 Sodium 140 mmol/L (136-145) 06/19/17 08:00 Potassium 4.3 mmol/L (3.5-5.1) 06/19/17 08:00 Chloride 106 mmol/L (98-107) D 06/19/17 08:00 Carbon Dioxide 31 mmol/L (21-32) 06/19/17 08:00 Anion Gap 3 (8-16) L 06/19/17 08:00 BUN 11 mg/dL (7-18) 06/19/17 08:00 Creatinine 0.9 mg/dL (0.7-1.3) 06/19/17 08:00 Creat Clearance w eGFR > 60 (>60) 06/19/17 08:00 Random Glucose 95 mg/dL (74-106) D 06/19/17 08:00 Calcium 8.4 mg/dL (8.5-10.1) L 06/19/17 08:00 Total Bilirubin 0.4 mg/dL (0.2-1.0) 06/19/17 08:00 AST 13 U/L (15-37) L D 06/19/17 08:00 ALT 25 U/L (12-78) 06/19/17 08:00 Alkaline Phosphatase 54 U/L (45-117) D 06/19/17 08:00 Total Protein 6.3 g/dl (6.4-8.2) L D 06/19/17 08:00 Albumin 3.1 g/dl (3.4-5.0) L D 06/19/17 08:00 Urine Color Jacqui 06/18/17 21:57 Urine Appearance Slcloudy 06/18/17 21:57 Urine pH 5.0 (5.0-8.0) 06/18/17 21:57 Ur Specific [place] 1.025 (1.005-1.025) 06/18/17 21:57 Urine Protein Negative (NEGATIVE) 06/18/17 21:57 Urine Glucose (UA) Negative (NEGATIVE) 06/18/17 21:57 Urine Ketones Negative (NEGATIVE) 06/18/17 21:57 Urine Blood Negative (NEGATIVE) 06/18/17 21:57 Urine Nitrite Negative (NEGATIVE) 06/18/17 21:57 Urine Bilirubin Negative (NEGATIVE) 06/18/17 21:57 Urine Urobilinogen 4.0 e.u/dl mg/dL (0.2-1.0) 06/18/17 21:57 Urine RBC 3 /hpf (0-3) 06/18/17 21:57 Urine WBC 24 /hpf (3-5) 06/18/17 21:57 Ur Epithelial Cells Rare /hpf (FEW) 06/18/17 21:57 Urine Mucus Many 06/18/17 21:57 Valproic Acid 4.668 ug/ml (50-100) L 06/19/17 08:00 RPR Titer Nonreactive (NONREACTIVE) 06/19/17 08:00 Hepatitis C Antibody 0.1 s/co ratio (0.0-0.9) 06/19/17 08:00 labs noted Assessment: 06/20/17 14:32 Withdrawal sx. Plan: Continue detox
[2017-06-20] MEDS: THIAMINE HCL 100 MG TABLET (FP) PO SCH (22:08)
[2017-06-20] MEDS: chlordiazePOXIDE 5 MG CAPSULE PO SCH (22:09)
[2017-06-20] MEDS: MINERAL OIL/PETROLAT/WATER TOPICAL CREAM 113 GM JAR TP SCH (23:18)
[2017-06-21] MEDS: chlordiazePOXIDE 5 MG CAPSULE PO SCH ×3 (07:12→18:06)
--- NOTE | 2017-06-21 09:26 | PN ---
S Progress Note (SOAP) Subjective: alert,irritable,anxious,interrupted sleep, Objective: 06/21/17 09:25 Vital Signs Temperature 97.6 F 06/21/17 06:07 Pulse Rate 60 06/21/17 06:07 Respiratory Rate 16 06/21/17 06:07 Blood Pressure 114/77 06/21/17 06:07 O2 Sat by Pulse Oximetry (%) Assessment: 06/21/17 09:26 withdrawal symptom Plan: continue detox
[2017-06-21] MEDS: PRENATAL VITAMINS W/ FOLIC ACID TABLET (FP) PO SCH (10:07)
[2017-06-21] MEDS: DIVALPROEX SODIUM 250 MG TABLET E.C. (FP) PO SCH ×2 (10:07→22:22)
[2017-06-21] MEDS: CITALOPRAM HYDROBROMIDE 20 MG TABLET (FP) PO SCH (10:07)
--- NOTE | 2017-06-21 17:03 | EKG ---
Test Reason : Blood Pressure : / mmHG Vent. Rate : 071 BPM Atrial Rate : 071 BPM P-R Int : 170 ms QRS Dur : 086 ms QT Int : 436 ms P-R-T Axes : 074 075 057 degrees QTc Int : 473 ms NORMAL SINUS RHYTHM NORMAL ECG WHEN COMPARED WITH ECG OF 07-JAN-2017 12:56, T WAVE VARIATION Confirmed by CANELO ARCHIBALD MD ([id number]) on 06/21/2017 5:02:57 PM Referred By: Confirmed By:CANELO ARCHIBALD MD
[2017-06-21] MEDS: MINERAL OIL/PETROLAT/WATER TOPICAL CREAM 113 GM JAR TP SCH (22:22)
[2017-06-21] MEDS: chlordiazePOXIDE HCL 10 MG CAPSULE PO SCH (22:22)
[2017-06-21] MEDS: THIAMINE HCL 100 MG TABLET (FP) PO SCH (22:22)
[2017-06-22] MEDS: chlordiazePOXIDE HCL 10 MG CAPSULE PO SCH ×3 (06:09→17:47)
--- NOTE | 2017-06-22 09:13 | PN ---
S Progress Note (SOAP) Subjective: alert,irritable,interrupted sleep Objective: 06/22/17 09:13 Vital Signs Temperature 97.7 F 06/22/17 06:00 Pulse Rate 61 06/22/17 06:00 Respiratory Rate 18 06/22/17 06:00 Blood Pressure 122/71 06/22/17 06:00 O2 Sat by Pulse Oximetry (%) Assessment: 06/22/17 09:13 withdrawal symptom Plan: continue detox,discharge in am
[2017-06-22] MEDS: PRENATAL VITAMINS W/ FOLIC ACID TABLET (FP) PO SCH (10:07)
[2017-06-22] MEDS: CITALOPRAM HYDROBROMIDE 20 MG TABLET (FP) PO SCH (10:07)
[2017-06-22] MEDS: DIVALPROEX SODIUM 250 MG TABLET E.C. (FP) PO SCH ×2 (10:07→22:21)
--- NOTE | 2017-06-22 10:12 | PN ---
S Progress Note (SOAP) Subjective: alert,interrupted sleep, Objective: 06/22/17 09:09 Vital Signs Temperature 97.7 F 06/22/17 06:00 Pulse Rate 61 06/22/17 06:00 Respiratory Rate 18 06/22/17 06:00 Blood Pressure 122/71 06/22/17 06:00 O2 Sat by Pulse Oximetry (%) Assessment: 06/22/17 09:09 withdrawal symptom Plan: continue detox,discharge in am
[2017-06-22] MEDS: THIAMINE HCL 100 MG TABLET (FP) PO SCH (22:20)
[2017-06-22] MEDS: MINERAL OIL/PETROLAT/WATER TOPICAL CREAM 113 GM JAR TP SCH (22:21)
--- NOTE | 2017-06-23 09:48 | DS ---
[facility] Detox Discharge Summary Admission Date: 06/18/17 Discharge Date: 06/23/17 - History Present History: Alcohol Dependence Additional Comments: follow up with after care program as arrangement Pertinent Past History: bipolar 1 disorder weight loss - Physical Exam Results Vital Signs: Vital Signs Temperature 97.6 F 06/23/17 06:36 Pulse Rate 64 06/23/17 06:36 Respiratory Rate 16 06/23/17 06:36 Blood Pressure 118/67 06/23/17 06:36 O2 Sat by Pulse Oximetry (%) Pertinent Admission Physical Exam Findings: withdrawal symptom - Treatment Hospital Course: Detox Protocol Followed, Detoxed Safely, Responded well, Discharged Condition Good Patient has Accepted a Rehab Referral to: declined - Medication Discharge Medications: Ambulatory Orders Citalopram Hydrobromide [Celexa -] 20 mg PO DAILY #30 tablet 02/08/17 Divalproex [Depakote -] 500 mg PO BID #60 tablet.ec 02/08/17 Citalopram Hydrobromide [Celexa -] 20 mg PO DAILY #30 tablet 06/19/17 Divalproex [Depakote -] 500 mg PO BID #60 tablet.ec 06/19/17 - Diagnosis (1) Alcohol dependence with uncomplicated withdrawal Current Visit: Yes Status: Acute (2) Weight loss Current Visit: Yes Status: Acute (3) Bipolar I disorder Current Visit: Yes Status: Suspected - AMA Did Patient Leave Against Medical Advice: No
[2017-06-23 10:18] VITALS: BP 132/54; PULSE 90; TEMP 97.9
[2017-06-23] MEDS: DIVALPROEX SODIUM 250 MG TABLET E.C. (FP) PO SCH (10:42)
[2017-06-23] MEDS: PRENATAL VITAMINS W/ FOLIC ACID TABLET (FP) PO SCH (10:42)
[2017-06-23] MEDS: CITALOPRAM HYDROBROMIDE 20 MG TABLET (FP) PO SCH (10:42)
== END 2017-06-23 11:10 | disposition home or self-care (01) | DRG 897 ==
LOC: YASAS 14:35 → Y6N 19:51
PROVIDERS: ADMIT Internal Medicine; ATTEND Internal Medicine
PROC: HZ2ZZZZ Detoxification Services for Substance Abuse Treatment (ICD-10-PCS; principal; 2017-06-18)
DX: F19.230 Other psychoactive substance dependence with withdrawal, uncomplicated (principal); F14.20 Cocaine dependence, uncomplicated; F31.81 Bipolar II disorder; F31.89 Other bipolar disorder; F10.230 Alcohol dependence with withdrawal, uncomplicated; L85.3 Xerosis cutis; R76.11 Nonspecific reaction to tuberculin skin test without active tuberculosis; Z59.0 Homelessness
CPT/HCPCS: 36415; 80053; 80164; 81003; 81015; 85027; 86593; 86803; 93005; 93010

== ENCOUNTER 2017-11-19 11:36 | Inpatient (IN) | payer OTHER ==
[2017-11-19 13:59] VITALS: BMI 24.9
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
[2017-11-19] MEDS ORDERED: MENTHOL/PHENOL 1 EACH UD MM PRN (15:39)
[2017-11-19] MEDS ORDERED: chlordiazePOXIDE HCL 25 MG CAPSULE PO ONE (15:39)
[2017-11-19] MEDS ORDERED: guaiFENesin/D-METHORPHAN HB 10 ML UNIT-DOSE CUPS PO PRN (15:39)
[2017-11-19] MEDS ORDERED: MAG HYDROX/AL HYDROX/SIMETH 30 ML UNIT-DOSE CUP PO PRN (15:39)
[2017-11-19] MEDS ORDERED: MAGNESIUM CITRATE 300 ML BOTTLE PO PRN (15:39)
[2017-11-19] MEDS ORDERED: chlordiazePOXIDE HCL 25 MG CAPSULE PO PRN (15:39)
[2017-11-19] MEDS ORDERED: hydrOXYzine PAMOATE 50 MG CAPSULE (FP) PO PRN (15:39)
[2017-11-19] MEDS ORDERED: P-EPHED 60MG/TRIPROLIDI 2.5MG TABLET PO PRN (15:39)
[2017-11-19] MEDS ORDERED: LOPERAMIDE HCL 2 MG CAPSULE PO PRN (15:39)
[2017-11-19] MEDS ORDERED: ACETAMINOPHEN 325 MG TABLET (FP) PO PRN (15:39)
[2017-11-19] MEDS ORDERED: MAGNESIUM HYDROX 2400MG/30ML ORAL SUSPENSION 30 ML CUP PO PRN (15:39)
[2017-11-19] MEDS ORDERED: IBUPROFEN 400 MG TABLET (FP) PO PRN (15:39)
[2017-11-19] MEDS: chlordiazePOXIDE HCL 25 MG CAPSULE PO SCH ×2 (19:24→23:26)
[2017-11-19 23:21] LABS: URINE APPEARANCE SLCLOUDY; URINE BILIRUBIN NEGATIVE (NEGATIVE); URINE BLOOD NEGATIVE (NEGATIVE); URINE COLOR DKYELLOW; URINE GLUCOSE (UA) NEGATIVE (NEGATIVE); URINE KETONE NEGATIVE (NEGATIVE); URINE LEUK ESTERASE TRACE (NEGATIVE); URINE NITRITE NEGATIVE (NEGATIVE); URINE PROTEIN NEGATIVE (NEGATIVE); URINE UROBILINOGEN NEGATIVE mg/dL (0.2-1.0)
[2017-11-19] MEDS: THIAMINE HCL 100 MG TABLET (FP) PO SCH (23:26)
[2017-11-19 23:29] LABS: EPI CELLS RARE /HPF (FEW); URINE MUCUS MANY
[2017-11-20] MEDS: chlordiazePOXIDE HCL 25 MG CAPSULE PO SCH ×4 (06:03→23:32)
[2017-11-20] MEDS: PRENATAL VITAMINS W/ FOLIC ACID TABLET (FP) PO SCH (10:35)
--- NOTE | 2017-11-20 12:20 | EKG ---
Test Reason : Blood Pressure : / mmHG Vent. Rate : 071 BPM Atrial Rate : 071 BPM P-R Int : 180 ms QRS Dur : 086 ms QT Int : 432 ms P-R-T Axes : 077 073 064 degrees QTc Int : 469 ms NORMAL SINUS RHYTHM MINIMAL VOLTAGE CRITERIA FOR LVH, MAY BE NORMAL VARIANT NONSPECIFIC T WAVE ABNORMALITY ABNORMAL ECG WHEN COMPARED WITH ECG OF 18-JUN-2017 19:19, NO SIGNIFICANT CHANGE WAS FOUND Confirmed by RAMON STEWART MD ([id number]) on 11/20/2017 12:19:59 PM Referred By: Confirmed By:RAMON STEWART MD
[2017-11-20 12:29] LABS: HEMATOCRIT 42.3 % (35.4-49); HEMOGLOBIN 13.7 GM/dL (11.7-16.9); MCH 26.1 pg (25.7-33.7); MCHC 32.4 g/dl (32.0-35.9); MEAN CELL VOLUME 80.5 fl (80-96); MEAN PLT VOLUME 8.3 fl (7.5-11.1); PLATELET COUNT 391 K/MM3 (134-434); RBC 5.25 M/mm3 (4.00-5.60); RDW 14.6 % (11.9-15.9); WHITE BLOOD COUNT 6.9 K/mm3 (4.0-10.0)
[2017-11-20 12:49] LABS: ALBUMIN 3.7 g/dl (3.4-5.0); ANION GAP 7 (8-16); BLOOD UREA NITROGEN 19 mg/dL (7-18); CALCIUM 9.1 mg/dL (8.5-10.1); CHLORIDE 103 mmol/L (98-107); CO2 29 mmol/L (21-32); POTASSIUM 4.4 mmol/L (3.5-5.1); SODIUM 139 mmol/L (136-145)
[2017-11-20 12:51] LABS: ALK PHOS 61 U/L (45-117); BILIRUBIN,TOTAL 0.2 mg/dL (0.2-1.0); CREATININE 1.2 mg/dL (0.7-1.3); GLUCOSE,RANDOM 88 mg/dL (74-106); SGOT/AST 17 U/L (15-37); SGPT/ALT 20 U/L (12-78); TOT PROT 7.4 g/dl (6.4-8.2)
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
--- NOTE | 2017-11-20 17:28 | PN ---
[facility] CIWA - CIWA Score Nausea/Vomitin-No Nausea/No Vomiting Muscle Tremors: 3 Anxiety: 4-Mod. Anxious/Guarded Agitation: 1-Slight > Activity Paroxysmal Sweats: 3 Orientation: 0-Oriented Tacttile Disturbances: 2-Mild Itch/Numbness/Burn Auditory Disturbances: 2-Mild Harshness/Frighten Visual Disturbances: 0-None Headache: 0-None Present CIWA-Ar Total Score: 15 S Progress Note (SOAP) Subjective: Tremors, Sweating, Body Aches, Fatigue. Objective: PT. A & O X 3, OBSERVED AMBULATING ON UNIT. NO ACUTE DISTRESS. 11/20/17 17:27 Vital Signs Temperature 97.7 F 11/20/17 14:33 Pulse Rate 79 11/20/17 14:33 Respiratory Rate 20 11/20/17 14:33 Blood Pressure 111/71 11/20/17 14:33 O2 Sat by Pulse Oximetry (%) Laboratory Tests 11/19/17 11/20/17 11/20/17 21:19 06:00 06:00 WBC 6.9 D RBC 5.25 Hgb 13.7 Hct 42.3 MCV 80.5 MCH 26.1 MCHC 32.4 RDW 14.6 Plt Count 391 D MPV 8.3 Sodium 139 Potassium 4.4 Chloride 103 Carbon Dioxide 29 Anion Gap 7 L BUN 19 H D Creatinine 1.2 D Creat Clearance w eGFR > 60 Random Glucose 88 Calcium 9.1 Total Bilirubin 0.2 D AST 17 D ALT 20 Alkaline Phosphatase 61 Total Protein 7.4 Albumin 3.7 Urine Color Dkyellow Urine Appearance Slcloudy Urine pH 5.0 Ur Specific [place] 1.031 Urine Protein Negative Urine Glucose (UA) Negative Urine Ketones Negative Urine Blood Negative Urine Nitrite Negative Urine Bilirubin Negative Urine Urobilinogen Negative Ur Leukocyte Esterase Trace Urine WBC (Auto) 12 Urine RBC (Auto) 1 Ur Epithelial Cells Rare Urine Mucus Many RPR Titer 11/20/17 06:00 WBC RBC Hgb Hct MCV MCH MCHC RDW Plt Count MPV Sodium Potassium Chloride Carbon Dioxide Anion Gap BUN Creatinine Creat Clearance w eGFR Random Glucose Calcium Total Bilirubin AST ALT Alkaline Phosphatase Total Protein Albumin Urine Color Urine Appearance Urine pH Ur Specific [place] Urine Protein Urine Glucose (UA) Urine Ketones Urine Blood Urine Nitrite Urine Bilirubin Urine Urobilinogen Ur Leukocyte Esterase Urine WBC (Auto) Urine RBC (Auto) Ur Epithelial Cells Urine Mucus RPR Titer Nonreactive LABS NOTED. Assessment: 11/20/17 17:27 WITHDRAWAL SYMPTOMS. Plan: CONTINUE DETOX.
[2017-11-20] MEDS: THIAMINE HCL 100 MG TABLET (FP) PO SCH (22:40)
[2017-11-20] MEDS: DIVALPROEX SODIUM 500 MG TABLET E.C. PO SCH (22:40)
[2017-11-21] MEDS: chlordiazePOXIDE HCL 25 MG CAPSULE PO SCH ×3 (06:07→10:33)
[2017-11-21] MEDS: DIVALPROEX SODIUM 500 MG TABLET E.C. PO SCH ×2 (10:29→23:08)
[2017-11-21] MEDS: CITALOPRAM HYDROBROMIDE 20 MG TABLET (FP) PO SCH (10:29)
[2017-11-21] MEDS: PRENATAL VITAMINS W/ FOLIC ACID TABLET (FP) PO SCH (10:29)
--- NOTE | 2017-11-21 14:22 | PN ---
[facility] CIWA - CIWA Score Nausea/Vomitin Muscle Tremors: 3 Anxiety: 3 Agitation: 3 Paroxysmal Sweats: 1-Minimal Palms Moist Orientation: 0-Oriented Tacttile Disturbances: 1-Very Mild Itch/Numbness Auditory Disturbances: 1-Very Mild Visual Disturbances: 0-None Headache: 2-Mild CIWA-Ar Total Score: 17 BHS Progress Note (SOAP) Subjective: ALERT,IRRITABLE,ANXIOUS,INTERRUPTED SLEEP,TREMOR Objective: 11/21/17 14:18 Vital Signs Temperature 96.9 F L 11/21/17 13:40 Pulse Rate 74 11/21/17 13:40 Respiratory Rate 18 11/21/17 13:40 Blood Pressure 100/66 11/21/17 13:40 O2 Sat by Pulse Oximetry (%) EKG NSR,NONSPECIFIC T WAVE NO CHEST PAIN,NO SOB,NO DIZZINESS Laboratory Last Values WBC 6.9 K/mm3 (4.0-10.0) D 11/20/17 06:00 RBC 5.25 M/mm3 (4.00-5.60) 11/20/17 06:00 Hgb 13.7 GM/dL (11.7-16.9) 11/20/17 06:00 Hct 42.3 % (35.4-49) 11/20/17 06:00 MCV 80.5 fl (80-96) 11/20/17 06:00 MCH 26.1 pg (25.7-33.7) 11/20/17 06:00 MCHC 32.4 g/dl (32.0-35.9) 11/20/17 06:00 RDW 14.6 % (11.9-15.9) 11/20/17 06:00 Plt Count 391 K/MM3 (134-434) D 11/20/17 06:00 MPV 8.3 fl (7.5-11.1) 11/20/17 06:00 Sodium 139 mmol/L (136-145) 11/20/17 06:00 Potassium 4.4 mmol/L (3.5-5.1) 11/20/17 06:00 Chloride 103 mmol/L (98-107) 11/20/17 06:00 Carbon Dioxide 29 mmol/L (21-32) 11/20/17 06:00 Anion Gap 7 (8-16) L 11/20/17 06:00 BUN 19 mg/dL (7-18) H D 11/20/17 06:00 Creatinine 1.2 mg/dL (0.7-1.3) D 11/20/17 06:00 Creat Clearance w eGFR > 60 (>60) 11/20/17 06:00 Random Glucose 88 mg/dL (74-106) 11/20/17 06:00 Calcium 9.1 mg/dL (8.5-10.1) 11/20/17 06:00 Total Bilirubin 0.2 mg/dL (0.2-1.0) D 11/20/17 06:00 AST 17 U/L (15-37) D 11/20/17 06:00 ALT 20 U/L (12-78) 11/20/17 06:00 Alkaline Phosphatase 61 U/L (45-117) 11/20/17 06:00 Total Protein 7.4 g/dl (6.4-8.2) 11/20/17 06:00 Albumin 3.7 g/dl (3.4-5.0) 11/20/17 06:00 Urine Color Dkyellow 11/19/17 21:19 Urine Appearance Slcloudy 11/19/17 21: Urine pH 5.0 (5.0-8.0) 11/19/17 21:19 Ur Specific [place] 1.031 (1.001-1.035) 11/19/17 21:19 Urine Protein Negative (NEGATIVE) 11/19/17 21:19 Urine Glucose (UA) Negative (NEGATIVE) 11/19/17 21: Urine Ketones Negative (NEGATIVE) 11/19/17 21: Urine Blood Negative (NEGATIVE) 11/19/17 21:19 Urine Nitrite Negative (NEGATIVE) 11/19/17 21:19 Urine Bilirubin Negative (NEGATIVE) 11/19/17 21: Urine Urobilinogen Negative mg/dL (0.2-1.0) 11/19/17 21:19 Ur Leukocyte Esterase Trace (NEGATIVE) 11/19/17 21:19 Urine WBC (Auto) 12 /hpf (3-5) 11/19/17 21:19 Urine RBC (Auto) 1 /hpf (0-3) 11/19/17 21:19 Ur Epithelial Cells Rare /HPF (FEW) 11/19/17 21:19 Urine Mucus Many 11/19/17 21:19 Valproic Acid < 3.0 ug/ml (50-100) L 11/21/17 08:20 RPR Titer Nonreactive (NONREACTIVE) 11/20/17 06:00 Assessment: 11/21/17 14:21 WITHDRAWAL SYMPTOM Plan: CONTINUE DETOX
[2017-11-21] MEDS: chlordiazePOXIDE 5 MG CAPSULE PO SCH ×2 (17:44→23:08)
[2017-11-21] MEDS: THIAMINE HCL 100 MG TABLET (FP) PO SCH (23:08)
[2017-11-22] MEDS: chlordiazePOXIDE 5 MG CAPSULE PO SCH ×2 (05:18→10:32)
[2017-11-22] MEDS: CITALOPRAM HYDROBROMIDE 20 MG TABLET (FP) PO SCH (10:32)
[2017-11-22] MEDS: PRENATAL VITAMINS W/ FOLIC ACID TABLET (FP) PO SCH (10:32)
[2017-11-22] MEDS: DIVALPROEX SODIUM 500 MG TABLET E.C. PO SCH ×2 (10:32→22:45)
--- NOTE | 2017-11-22 17:07 | PN ---
[facility] Progress Note (SOAP) Subjective: Interrupted Sleep, Sweating. Objective: PT. A & O X 3. NO ACUTE DISTRESS. 11/22/17 17:06 Vital Signs Temperature 98.7 F 11/22/17 14:00 Pulse Rate 63 11/22/17 14:00 Respiratory Rate 20 11/22/17 14:00 Blood Pressure 101/66 11/22/17 14:00 O2 Sat by Pulse Oximetry (%) Laboratory Tests 11/19/17 11/20/17 11/20/17 21:19 06:00 06:00 WBC 6.9 D RBC 5.25 Hgb 13.7 Hct 42.3 MCV 80.5 MCH 26.1 MCHC 32.4 RDW 14.6 Plt Count 391 D MPV 8.3 Sodium 139 Potassium 4.4 Chloride 103 Carbon Dioxide 29 Anion Gap 7 L BUN 19 H D Creatinine 1.2 D Creat Clearance w eGFR > 60 Random Glucose 88 Calcium 9.1 Total Bilirubin 0.2 D AST 17 D ALT 20 Alkaline Phosphatase 61 Total Protein 7.4 Albumin 3.7 Urine Color Dkyellow Urine Appearance Slcloudy Urine pH 5.0 Ur Specific [place] 1.031 Urine Protein Negative Urine Glucose (UA) Negative Urine Ketones Negative Urine Blood Negative Urine Nitrite Negative Urine Bilirubin Negative Urine Urobilinogen Negative Ur Leukocyte Esterase Trace Urine WBC (Auto) 12 Urine RBC (Auto) 1 Ur Epithelial Cells Rare Urine Mucus Many Valproic Acid RPR Titer 11/20/17 11/21/17 06:00 08:20 WBC RBC Hgb Hct MCV MCH MCHC RDW Plt Count MPV Sodium Potassium Chloride Carbon Dioxide Anion Gap BUN Creatinine Creat Clearance w eGFR Random Glucose Calcium Total Bilirubin AST ALT Alkaline Phosphatase Total Protein Albumin Urine Color Urine Appearance Urine pH Ur Specific [place] Urine Protein Urine Glucose (UA) Urine Ketones Urine Blood Urine Nitrite Urine Bilirubin Urine Urobilinogen Ur Leukocyte Esterase Urine WBC (Auto) Urine RBC (Auto) Ur Epithelial Cells Urine Mucus Valproic Acid < 3.0 L RPR Titer Nonreactive LABS NOTED. Assessment: 11/22/17 17:06 WITHDRAWAL SYMPTOMS. Plan: CONTINUE DETOX. INCREASE DAILY PO FLUID INTAKE.
[2017-11-22] MEDS: chlordiazePOXIDE HCL 10 MG CAPSULE PO SCH ×2 (17:14→22:45)
[2017-11-22] MEDS: THIAMINE HCL 100 MG TABLET (FP) PO SCH (22:45)
[2017-11-23] MEDS: chlordiazePOXIDE HCL 10 MG CAPSULE PO SCH ×2 (06:26→10:27)
[2017-11-23 09:32] VITALS: BP 116/77; PULSE 69; TEMP 96.1
[2017-11-23] MEDS: PRENATAL VITAMINS W/ FOLIC ACID TABLET (FP) PO SCH (10:27)
[2017-11-23] MEDS: CITALOPRAM HYDROBROMIDE 20 MG TABLET (FP) PO SCH (10:27)
[2017-11-23] MEDS: DIVALPROEX SODIUM 500 MG TABLET E.C. PO SCH (10:27)
--- NOTE | 2017-11-23 11:14 | DS ---
[facility] Detox Discharge Summary Admission Date: 11/19/17 Discharge Date: 11/23/17 - History Present History: Alcohol Dependence, Cocaine Dependence Additional Comments: PATIENT RETURNING TO [facility] ([place] AND ACCOMPANYING SUBSTANCE USE TREATMENT PROGRAM FOR AFTERCARE. PATIENT WAS DISCHARGED FROM DETOX UNIT IN STABLE MEDICAL CONDITION. Pertinent Past History: Depression, Bipolar Disorder, Weight Loss. - Physical Exam Results Vital Signs: Vital Signs Temperature 96.1 F L 11/23/17 09:31 Pulse Rate 69 11/23/17 09:31 Respiratory Rate 18 11/23/17 09:31 Blood Pressure 116/77 11/23/17 09:31 O2 Sat by Pulse Oximetry (%) Pertinent Admission Physical Exam Findings: WITHDRAWAL SYMPTOMS. Laboratory Tests 11/19/17 11/20/17 11/20/17 21:19 06:00 06:00 WBC 6.9 D RBC 5.25 Hgb 13.7 Hct 42.3 MCV 80.5 MCH 26.1 MCHC 32.4 RDW 14.6 Plt Count 391 D MPV 8.3 Sodium 139 Potassium 4.4 Chloride 103 Carbon Dioxide 29 Anion Gap 7 L BUN 19 H D Creatinine 1.2 D Creat Clearance w eGFR > 60 Random Glucose 88 Calcium 9.1 Total Bilirubin 0.2 D AST 17 D ALT 20 Alkaline Phosphatase 61 Total Protein 7.4 Albumin 3.7 Urine Color Dkyellow Urine Appearance Slcloudy Urine pH 5.0 Ur Specific [place] 1.031 Urine Protein Negative Urine Glucose (UA) Negative Urine Ketones Negative Urine Blood Negative Urine Nitrite Negative Urine Bilirubin Negative Urine Urobilinogen Negative Ur Leukocyte Esterase Trace Urine WBC (Auto) 12 Urine RBC (Auto) 1 Ur Epithelial Cells Rare Urine Mucus Many Valproic Acid RPR Titer 11/20/17 11/21/17 06:00 08:20 WBC RBC Hgb Hct MCV MCH MCHC RDW Plt Count MPV Sodium Potassium Chloride Carbon Dioxide Anion Gap BUN Creatinine Creat Clearance w eGFR Random Glucose Calcium Total Bilirubin AST ALT Alkaline Phosphatase Total Protein Albumin Urine Color Urine Appearance Urine pH Ur Specific [place] Urine Protein Urine Glucose (UA) Urine Ketones Urine Blood Urine Nitrite Urine Bilirubin Urine Urobilinogen Ur Leukocyte Esterase Urine WBC (Auto) Urine RBC (Auto) Ur Epithelial Cells Urine Mucus Valproic Acid < 3.0 L RPR Titer Nonreactive - Treatment Hospital Course: Detox Protocol Followed, Detoxed Safely, Responded well, Discharged Condition Good Patient has Accepted a Rehab Referral to: PT RETURNING TO [facility] ([place], [place] - Medication Discharge Medications: Ambulatory Orders Citalopram Hydrobromide [Celexa -] 20 mg PO DAILY #30 tablet 02/08/17 Divalproex [Depakote -] 500 mg PO BID #60 tablet.ec 02/08/17 Citalopram Hydrobromide [Celexa -] 20 mg PO DAILY #30 tablet 11/22/17 Divalproex [Depakote -] 500 mg PO BID #30 tablet.ec 11/22/17 - Diagnosis (1) Alcohol dependence with uncomplicated withdrawal Current Visit: Yes Status: Acute (2) Cocaine dependence, uncomplicated Current Visit: Yes Status: Acute (3) Weight loss Current Visit: Yes Status: Acute (4) Substance induced mood disorder Current Visit: Yes Status: Acute (5) Bipolar disorder Current Visit: Yes Status: Chronic Qualifiers: Active/Remission status: remission status unspecified Qualified Code(s): F31.9 - Bipolar disorder, unspecified - AMA Did Patient Leave Against Medical Advice: No
== END 2017-11-23 10:45 | disposition home or self-care (01) | DRG 897 ==
LOC: YASAS 11:36 → Y3N 16:48
PROVIDERS: ADMIT Internal Medicine; ATTEND Internal Medicine
PROC: HZ2ZZZZ Detoxification Services for Substance Abuse Treatment (ICD-10-PCS; principal; 2017-11-19)
DX: F10.230 Alcohol dependence with withdrawal, uncomplicated (principal); F14.20 Cocaine dependence, uncomplicated; F19.24 Other psychoactive substance dependence with psychoactive substance-induced mood disorder; F31.9 Bipolar disorder, unspecified; R63.4 Abnormal weight loss; Z68.25 Body mass index [BMI] 25.0-25.9, adult; Z59.0 Homelessness
CPT/HCPCS: 36415; 80053; 80164; 81003; 81015; 85027; 86593; 93005; 93010

== ENCOUNTER 2018-02-08 14:05 | Inpatient (IN) | payer OTHER ==
[2018-02-08] MEDS ORDERED: P-EPHED 60MG/TRIPROLIDI 2.5MG TABLET PO PRN (17:43)
[2018-02-08] MEDS ORDERED: hydrOXYzine PAMOATE 50 MG CAPSULE (FP) PO PRN (17:43)
[2018-02-08] MEDS ORDERED: MENTHOL/PHENOL 1 EACH UD MM PRN (17:43)
[2018-02-08] MEDS ORDERED: chlordiazePOXIDE HCL 25 MG CAPSULE PO PRN (17:43)
[2018-02-08] MEDS ORDERED: MAG HYDROX/AL HYDROX/SIMETH 30 ML UNIT-DOSE CUP PO PRN (17:43)
[2018-02-08] MEDS ORDERED: IBUPROFEN 400 MG TABLET (FP) PO PRN (17:43)
[2018-02-08] MEDS ORDERED: LOPERAMIDE HCL 2 MG CAPSULE PO PRN (17:43)
[2018-02-08] MEDS ORDERED: MAGNESIUM HYDROX 2400MG/30ML ORAL SUSPENSION 30 ML CUP PO PRN (17:43)
[2018-02-08] MEDS ORDERED: MAGNESIUM CITRATE 300 ML BOTTLE PO PRN (17:43)
[2018-02-08] MEDS ORDERED: ACETAMINOPHEN 325 MG TABLET (FP) PO PRN (17:43)
[2018-02-08] MEDS ORDERED: guaiFENesin/D-METHORPHAN HB 10 ML UNIT-DOSE CUPS PO PRN (17:43)
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
[2018-02-08] MEDS ORDERED: chlordiazePOXIDE HCL 25 MG CAPSULE PO ONE (18:00)
[2018-02-08] MEDS ORDERED: MELATONIN 5 MG TABLETS PO PRN (22:00)
[2018-02-08] MEDS: chlordiazePOXIDE HCL 25 MG CAPSULE PO SCH (22:16)
[2018-02-08] MEDS: THIAMINE HCL 100 MG TABLET (FP) PO SCH (22:16)
--- NOTE | 2018-02-08 23:39 | PN ---
[facility] Progress Note Note: Abnormal EKG patient symptomatic. Increase fluids Continue to monitor Repeat EKG STAT
[2018-02-09] MEDS: chlordiazePOXIDE HCL 25 MG CAPSULE PO SCH ×4 (05:39→23:05)
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
--- NOTE | 2018-02-09 09:45 | EKG ---
Test Reason : Blood Pressure : / mmHG Vent. Rate : 066 BPM Atrial Rate : 066 BPM P-R Int : 166 ms QRS Dur : 086 ms QT Int : 518 ms P-R-T Axes : 068 070 054 degrees QTc Int : 543 ms NORMAL SINUS RHYTHM MINIMAL VOLTAGE CRITERIA FOR LVH, MAY BE NORMAL VARIANT PROLONGED QT ABNORMAL ECG WHEN COMPARED WITH ECG OF 19-NOV-2017 19:16, NONSPECIFIC T WAVE ABNORMALITY NO LONGER EVIDENT IN LATERAL LEADS QT HAS LENGTHENED Confirmed by NOEMI CASTRO, HARISH ([id number]) on 02/09/2018 9:44:56 AM Referred By: Confirmed By:HARISH FRANKLIN MD
[2018-02-09 10:19] LABS: HEMATOCRIT 35.9 % (35.4-49); HEMOGLOBIN 11.9 GM/dL (11.7-16.9); MCH 27.1 pg (25.7-33.7); MCHC 33.2 g/dl (32.0-35.9); MEAN CELL VOLUME 81.5 fl (80-96); MEAN PLT VOLUME 8.6 fl (7.5-11.1); PLATELET COUNT 187 K/MM3 (134-434); RDW 14.8 % (11.9-15.9); WHITE BLOOD COUNT 4.7 K/mm3 (4.0-10.0)
--- NOTE | 2018-02-09 10:39 | PN ---
S CIWA - CIWA Score Nausea/Vomitin Muscle Tremors: 3 Anxiety: 3 Agitation: 2 Paroxysmal Sweats: 1-Minimal Palms Moist Orientation: 0-Oriented Tacttile Disturbances: 1-Very Mild Itch/Numbness Auditory Disturbances: 1-Very Mild Visual Disturbances: 0-None Headache: 2-Mild CIWA-Ar Total Score: 16 S Progress Note (SOAP) Subjective: ALERT,IRRITABLE,ANXIOUS,INTERRUPTED SLEEP,TREMOR,PAIN IN THE BODY Objective: 02/09/18 10:35 Vital Signs Temperature 97.9 F 02/09/18 09:28 Pulse Rate 73 02/09/18 09:28 Respiratory Rate 16 02/09/18 09:28 Blood Pressure 113/60 02/09/18 09:28 O2 Sat by Pulse Oximetry (%) 02/09/18 10:36 EKG NSR,POLONG QT 452/488 NO CHEST PAIN,NO SOB,NO DIZZINESS Laboratory Last Values WBC 4.7 K/mm3 (4.0-10.0) D 02/09/18 07:30 RBC 4.40 M/mm3 (4.00-5.60) 02/09/18 07:30 Hgb 11.9 GM/dL (11.7-16.9) D 02/09/18 07:30 Hct 35.9 % (35.4-49) D 02/09/18 07:30 MCV 81.5 fl (80-96) 02/09/18 07:30 MCH 27.1 pg (25.7-33.7) 02/09/18 07:30 MCHC 33.2 g/dl (32.0-35.9) 02/09/18 07:30 RDW 14.8 % (11.9-15.9) 02/09/18 07:30 Plt Count 187 K/MM3 (134-434) D 02/09/18 07:30 MPV 8.6 fl (7.5-11.1) 02/09/18 07:30 LABS PENDING Assessment: 02/09/18 10:38 WITHDRAWAL SYMPTOM Plan: CONTINUE DETOX
[2018-02-09] MEDS: PRENATAL VITAMINS W/ FOLIC ACID TABLET (FP) PO SCH (10:43)
[2018-02-09 11:47] LABS: CHLORIDE 110 mmol/L (98-107); POTASSIUM 3.8 mmol/L (3.5-5.1); SODIUM 144 mmol/L (136-145)
[2018-02-09 12:41] LABS: ALBUMIN 2.8 g/dl (3.4-5.0); ALK PHOS 51 U/L (45-117); ANION GAP 6 (8-16); BILIRUBIN,TOTAL 0.2 mg/dL (0.2-1.0); BLOOD UREA NITROGEN 11 mg/dL (7-18); CALCIUM 7.7 mg/dL (8.5-10.1); CO2 28 mmol/L (21-32); CREATININE 0.8 mg/dL (0.7-1.3); GLUCOSE,RANDOM 92 mg/dL (74-106); SGOT/AST 13 U/L (15-37); SGPT/ALT 24 U/L (12-78); TOT PROT 5.8 g/dl (6.4-8.2)
--- NOTE | 2018-02-09 13:04 | EKG ---
Test Reason : Blood Pressure : / mmHG Vent. Rate : 070 BPM Atrial Rate : 070 BPM P-R Int : 188 ms QRS Dur : 088 ms QT Int : 452 ms P-R-T Axes : 073 073 062 degrees QTc Int : 488 ms NORMAL SINUS RHYTHM PROLONGED QT ABNORMAL ECG WHEN COMPARED WITH ECG OF 08-FEB-2018 19:27, QT HAS SHORTENED Confirmed by NOEMI CASTRO, HARISH ([id number]) on 02/09/2018 1:04:23 PM Referred By: Confirmed By:HARISH FRANKLIN MD
--- NOTE | 2018-02-09 15:29 | EKG ---
Test Reason : Blood Pressure : / mmHG Vent. Rate : 071 BPM Atrial Rate : 071 BPM P-R Int : 190 ms QRS Dur : 092 ms QT Int : 448 ms P-R-T Axes : 063 072 049 degrees QTc Int : 486 ms NORMAL SINUS RHYTHM PROLONGED QT ABNORMAL ECG WHEN COMPARED WITH ECG OF 08-FEB-2018 23:27, NO SIGNIFICANT CHANGE WAS FOUND Confirmed by HARISH FRANKLIN MD ([id number]) on 02/09/2018 3:29:17 PM Referred By: Confirmed By:HARISH FRANKLIN MD
[2018-02-09 19:15] LABS: URINE APPEARANCE SLCLOUDY; URINE BILIRUBIN NEGATIVE (<2.0 mg/dL); URINE BLOOD NEGATIVE (NEGATIVE); URINE COLOR YELLOW; URINE GLUCOSE (UA) NEGATIVE (NEGATIVE); URINE KETONE NEGATIVE (NEGATIVE); URINE LEUK ESTERASE NEGATIVE (NEGATIVE); URINE NITRITE NEGATIVE (NEGATIVE); URINE PROTEIN NEGATIVE (NEGATIVE); URINE UROBILINOGEN NEGATIVE mg/dL (0.2-1.0)
[2018-02-09] MEDS: THIAMINE HCL 100 MG TABLET (FP) PO SCH (23:05)
[2018-02-10] MEDS: chlordiazePOXIDE HCL 25 MG CAPSULE PO SCH ×3 (06:10→18:00)
[2018-02-10] MEDS: PRENATAL VITAMINS W/ FOLIC ACID TABLET (FP) PO SCH (10:04)
--- NOTE | 2018-02-10 12:07 | PN ---
S CIWA - CIWA Score Nausea/Vomitin Muscle Tremors: 3 Anxiety: 3 Agitation: 2 Paroxysmal Sweats: 1-Minimal Palms Moist Orientation: 0-Oriented Tacttile Disturbances: 1-Very Mild Itch/Numbness Auditory Disturbances: 1-Very Mild Visual Disturbances: 0-None Headache: 2-Mild CIWA-Ar Total Score: 16 BHS Progress Note (SOAP) Subjective: ALERT,IRRITABLE,ANXIOUS,INTERRUPTED SLEEP,TREMOR Objective: 02/10/18 12:05 Vital Signs Temperature 97.9 F 02/10/18 09:22 Pulse Rate 72 02/10/18 09:22 Respiratory Rate 20 02/10/18 09:22 Blood Pressure 123/67 02/10/18 09:22 O2 Sat by Pulse Oximetry (%) Laboratory Last Values WBC 4.7 K/mm3 (4.0-10.0) D 02/09/18 07:30 RBC 4.40 M/mm3 (4.00-5.60) 02/09/18 07:30 Hgb 11.9 GM/dL (11.7-16.9) D 02/09/18 07:30 Hct 35.9 % (35.4-49) D 02/09/18 07:30 MCV 81.5 fl (80-96) 02/09/18 07:30 MCH 27.1 pg (25.7-33.7) 02/09/18 07:30 MCHC 33.2 g/dl (32.0-35.9) 02/09/18 07:30 RDW 14.8 % (11.9-15.9) 02/09/18 07:30 Plt Count 187 K/MM3 (134-434) D 02/09/18 07:30 MPV 8.6 fl (7.5-11.1) 02/09/18 07:30 Sodium 144 mmol/L (136-145) 02/09/18 07:30 Potassium 3.8 mmol/L (3.5-5.1) 02/09/18 07:30 Chloride 110 mmol/L (98-107) H 02/09/18 07:30 Carbon Dioxide 28 mmol/L (21-32) 02/09/18 07:30 Anion Gap 6 (8-16) L 02/09/18 07:30 BUN 11 mg/dL (7-18) D 02/09/18 07:30 Creatinine 0.8 mg/dL (0.7-1.3) D 02/09/18 07:30 Creat Clearance w eGFR > 60 (>60) 02/09/18 07:30 Random Glucose 92 mg/dL (74-106) 02/09/18 07:30 Calcium 7.7 mg/dL (8.5-10.1) L 02/09/18 07:30 Total Bilirubin 0.2 mg/dL (0.2-1.0) 02/09/18 07:30 AST 13 U/L (15-37) L D 02/09/18 07:30 ALT 24 U/L (12-78) 02/09/18 07:30 Alkaline Phosphatase 51 U/L (45-117) 02/09/18 07:30 Total Protein 5.8 g/dl (6.4-8.2) L D 02/09/18 07:30 Albumin 2.8 g/dl (3.4-5.0) L D 02/09/18 07:30 Urine Color Yellow 02/09/18 13:30 Urine Appearance Slcloudy 02/09/18 13:30 Urine pH 8.0 (5.0-8.0) D 02/09/18 13:30 Ur Specific [place] 1.019 (1.001-1.035) 02/09/18 13:30 Urine Protein Negative (NEGATIVE) 02/09/18 13:30 Urine Glucose (UA) Negative (NEGATIVE) 02/09/18 13:30 Urine Ketones Negative (NEGATIVE) 02/09/18 13:30 Urine Blood Negative (NEGATIVE) 02/09/18 13:30 Urine Nitrite Negative (NEGATIVE) 02/09/18 13:30 Urine Bilirubin Negative (<2.0 mg/dL) 02/09/18 13:30 Urine Urobilinogen Negative mg/dL (0.2-1.0) 02/09/18 13:30 Ur Leukocyte Esterase Negative (NEGATIVE) 02/09/18 13:30 RPR Titer Nonreactive (NONREACTIVE) 02/09/18 07:30 Assessment: 02/10/18 12:06 WITHDRAWAL SYMPTOM Plan: CONTINUE DETOX
--- NOTE | 2018-02-10 14:15 | PN ---
BHS Progress Note Note: LESS WITHDRAWAL SYMPTOM,CONTINUE DETOX,DISCHARGE IN AM FOR FURTHER LEVEL OF CARE [facility]
--- NOTE | 2018-02-10 14:19 | PN ---
BHS Progress Note Note: PLEASE REGARD NOTE ON THIS PATIENT AT 14.12,BELONG TO OTHER PATIENT
[2018-02-10] MEDS: THIAMINE HCL 100 MG TABLET (FP) PO SCH (22:53)
[2018-02-10] MEDS: chlordiazePOXIDE 5 MG CAPSULE PO SCH (22:54)
[2018-02-11] MEDS: chlordiazePOXIDE 5 MG CAPSULE PO SCH ×3 (05:45→17:29)
[2018-02-11] MEDS: PRENATAL VITAMINS W/ FOLIC ACID TABLET (FP) PO SCH (10:20)
--- NOTE | 2018-02-11 12:48 | PN ---
BHS Progress Note (SOAP) Subjective: ALERT,INTERRUPTED SLEEP,ANXIOUS Objective: 02/11/18 12:47 Vital Signs Temperature 98.1 F 02/11/18 09:39 Pulse Rate 72 02/11/18 09:39 Respiratory Rate 18 02/11/18 09:39 Blood Pressure 127/71 02/11/18 09:39 O2 Sat by Pulse Oximetry (%) Assessment: 02/11/18 12:48 WITHDRAWAL SYMPTOM Plan: CONTINUE DETOX
--- NOTE | 2018-02-11 13:53 | PN ---
S Progress Note Note: patient is stable for further level of care in [facility]
[2018-02-11] MEDS: THIAMINE HCL 100 MG TABLET (FP) PO SCH (21:48)
[2018-02-11] MEDS ORDERED: chlordiazePOXIDE HCL 10 MG CAPSULE PO SCH (23:00)
[2018-02-12] MEDS: PRENATAL VITAMINS W/ FOLIC ACID TABLET (FP) PO SCH (10:24)
[2018-02-12] MEDS: THIAMINE HCL 100 MG TABLET (FP) PO SCH (22:02)
[2018-02-13] MEDS: PRENATAL VITAMINS W/ FOLIC ACID TABLET (FP) PO SCH (11:00)
[2018-02-13] MEDS: THIAMINE HCL 100 MG TABLET (FP) PO SCH (21:55)
[2018-02-14] MEDS: PRENATAL VITAMINS W/ FOLIC ACID TABLET (FP) PO SCH (10:35)
--- NOTE | 2018-02-14 15:56 | HP ---
Psychiatrist Admission - Data Date of interview: 02/14/18 Admission source: [address] [place] [address] Identifying data: This is one of the multiple admissions to [address] [place] [address] rehabilitation for this 52 years old AA single,no children,undomiciled, supported by [employer]. Medical History: Unremarkable. Psychiatric History: Patient reports long and extensive psychiatric history, started back in 1991 when he was hospitalized due to manic episode.patient was dx with Bipolar disorder.He was on different psychotropic medications .Reports multiple psychiatric hospitalizations,most recent was in 2012.Patient denies any suicidal attempts.He stopped his psychotropic medications a few years ago and stating that he feels better without medications.Patient is not willing to restart psych meds at this time. Vital Signs: Vital Signs - 24 hr 02/14/18 02/14/18 02/14/18 00:30 03:30 07:00 Temperature 99.0 F Pulse Rate 77 Respiratory 18 18 18 Rate Blood Pressure 118/70 Allergies/Adverse Reactions: Allergies Allergy/AdvReac Type Severity Reaction Status Date / Time No Known Drug Allergies Allergy Unknown Verified 02/08/18 17:38 Concur with the findings of this exam: Yes - Substance Abuse/Tx History Hx Alcohol Use: Yes (reports drinking since 15 yo,1 pint of vodka,a few beers daily) Hx Substance Use: Yes (cocaine/crack since 25 yo,$50 daily) Substance Use Type: Alcohol, Cocaine, Marijuana Hx Substance Use Treatment: Yes (reports long abstinence about 5 years) Mental Status Exam - Mental Status Exam Alert and Oriented to: Time, Place, Person Cognitive Function: Grossly Intact Patient Appearance: Well Groomed Mood: Euthymic Affect: Mood Congruent Patient Behavior: Cooperative Speech Pattern: Clear Voice Loudness: Normal Thought Process: Goal Oriented Thought Disorder: Being Controlled Hallucinations: Denies Suicidal Ideation: Denies Homicidal Ideation: Denies Insight/Judgement: Good Sleep: Fair Appetite: Good Muscle strength/Tone: Normal Gait/Station: Normal Psychiatric Findings - Problem List ([place] 1, 2,3) (1) Bipolar disorder Current Visit: Yes Status: Deleted Qualifiers: Active/Remission status: remission status unspecified Qualified Code(s): F31.9 - Bipolar disorder, unspecified (2) Alcohol dependence Current Visit: Yes Status: Chronic (3) Cocaine dependence Current Visit: Yes Status: Chronic (4) Cannabis dependence Current Visit: Yes Status: Chronic (5) Bipolar II disorder Current Visit: Yes Status: Chronic - Initial Treatment Plan Initial Treatment Plan: Will monitor progress.Consider psychotropic medications as needed.
[2018-02-15] MEDS: THIAMINE HCL 100 MG TABLET (FP) PO SCH ×2 (00:01→21:37)
[2018-02-15] MEDS: PRENATAL VITAMINS W/ FOLIC ACID TABLET (FP) PO SCH (10:03)
--- NOTE | 2018-02-15 12:36 | PN ---
S Progress Note Note: Vital Signs Temperature 98.5 F 02/15/18 06:37 Pulse Rate 72 02/15/18 06:37 Respiratory Rate 18 02/15/18 06:37 Blood Pressure 118/75 02/15/18 06:37 O2 Sat by Pulse Oximetry (%) Patient refuse to to take daily vitamins. order d/c continue to monitor
[2018-02-16] MEDS: THIAMINE HCL 100 MG TABLET (FP) PO SCH (21:47)
[2018-02-17] MEDS: THIAMINE HCL 100 MG TABLET (FP) PO SCH (21:57)
[2018-02-18] MEDS: THIAMINE HCL 100 MG TABLET (FP) PO SCH (21:35)
[2018-02-19] MEDS: THIAMINE HCL 100 MG TABLET (FP) PO SCH (22:03)
[2018-02-20] MEDS: THIAMINE HCL 100 MG TABLET (FP) PO SCH (21:50)
[2018-02-21] MEDS: THIAMINE HCL 100 MG TABLET (FP) PO SCH (21:40)
[2018-02-22] MEDS: THIAMINE HCL 100 MG TABLET (FP) PO SCH (21:54)
[2018-02-23] MEDS: THIAMINE HCL 100 MG TABLET (FP) PO SCH (21:34)
[2018-02-24] MEDS: THIAMINE HCL 100 MG TABLET (FP) PO SCH (21:41)
[2018-02-25] MEDS: THIAMINE HCL 100 MG TABLET (FP) PO SCH (21:29)
[2018-02-26] MEDS: THIAMINE HCL 100 MG TABLET (FP) PO SCH (21:37)
[2018-02-27] MEDS: THIAMINE HCL 100 MG TABLET (FP) PO SCH (21:14)
[2018-02-28] MEDS: THIAMINE HCL 100 MG TABLET (FP) PO SCH (21:42)
[2018-03-01] MEDS: THIAMINE HCL 100 MG TABLET (FP) PO SCH (21:47)
[2018-03-02] MEDS: THIAMINE HCL 100 MG TABLET (FP) PO SCH (21:07)
[2018-03-03] MEDS: THIAMINE HCL 100 MG TABLET (FP) PO SCH (21:45)
[2018-03-04] MEDS: THIAMINE HCL 100 MG TABLET (FP) PO SCH (21:27)
[2018-03-05] MEDS: THIAMINE HCL 100 MG TABLET (FP) PO SCH (21:37)
[2018-03-06] MEDS: THIAMINE HCL 100 MG TABLET (FP) PO SCH (22:02)
[2018-03-07] MEDS: THIAMINE HCL 100 MG TABLET (FP) PO SCH (21:38)
--- NOTE | 2018-03-08 10:54 | PN ---
Psychiatric Progress Note Vital Signs: Vital Signs Period Temp Pulse Resp BP Sys/Haynes Pulse Ox Last 24 Hr 99.1 F 68 18-18 116/74 Date of Session: 03/08/18 Chief Complaint:: Discharge Note HPI: Patient addressing Alcohol and Cocaine Dependence comormid with Bipolar II Disorder Current Medications: Active Medications Generic Name Dose Route Start Last Admin Trade Name Freq PRN Reason Stop Dose Admin Acetaminophen 650 mg 02/08/18 17:43 02/17/18 08:53 Tylenol - PO 650 mg Q4H PRN Administration FEVER Al Hydroxide/Mg Hydroxide 30 ml 02/08/18 17:43 Mylanta Oral Suspension - PO Q6H PRN DYSPEPSIA Eucalyptus/Menthol/Phenol/Sorbitol 1 each 02/08/18 17:43 Cepastat Lozenge - MM Q4H PRN SORE THROAT Guaifenesin 10 ml 02/08/18 17:43 Robitussin Dm - PO Q6H PRN COUGH Ibuprofen 400 mg 02/08/18 17:43 02/16/18 07:26 Motrin - PO 400 mg Q6H PRN Administration PAIN LEVEL 4-6 Loperamide HCl 4 mg 02/08/18 17:43 Imodium - PO Q6H PRN DIARRHEA Magnesium Citrate 300 ml 02/08/18 17:43 Citroma - PO Q48H PRN CONSTIPATION Magnesium Hydroxide 30 ml 02/08/18 17:43 Milk Of Magnesia - PO DAILY PRN CONSTIPATION Melatonin 5 mg 02/08/18 22:00 Melatonin PO HS PRN INSOMNIA Pseudoephedrine/Triprolidine 1 combo 02/08/18 17:43 Actifed - PO TID PRN NASAL CONGESTION Thiamine HCl 100 mg 02/08/18 22:00 03/07/18 21:38 Vitamin B1 - PO Not Given HS JORDANA Current Side Effect: No Lab tests ordered: Yes Lab tests reviewed: Yes Provider note:: Patient will complete this program on 03/09/18. He has met his treatment goals and will continue to address his issues in treatment at [facility] at [address] [place] [address]. Told card writer hand that from his participation in this program, he has learned to focus on himself. He is stable for discharge on 03/09/18 Total face to face time:: 35 Mental Status Exam - Mental Status Exam Alert and Oriented to: Time, Place, Person Cognitive Function: Fair Mood: Hopeful, Euthymic Affect: Appropriate Patient Behavior: Cooperative Speech Pattern: Clear Voice Loudness: Normal Thought Process: Intact, Goal Oriented Thought Disorder: Not Present Hallucinations: Denies Suicidal Ideation: Denies Homicidal Ideation: Denies Insight/Judgement: Fair Sleep: Fair Appetite: Good Muscle strength/Tone: Normal Gait/Station: Normal Psychiatric Treatment Plan - Problem List (1) Alcohol dependence Current Visit: Yes (2) Cocaine dependence Current Visit: Yes (3) Bipolar II disorder Current Visit: Yes Initial treatment plan: Patient will be discharged tomorrow and referred to [facility] for treatment
--- NOTE | 2018-03-08 13:03 | PN ---
Psychiatric Progress Note Vital Signs: Vital Signs Period Temp Pulse Resp BP Sys/Haynes Pulse Ox Last 24 Hr 99.1 F 68 18-18 116/74 Date of Session: 03/08/18 Chief Complaint:: Discharge Note HPI: Patient addressing Alcohol, Cocaine and Cannabis Dependence comorbid with Bipolar II Disorder Current Medications: Active Medications Generic Name Dose Route Start Last Admin Trade Name Freq PRN Reason Stop Dose Admin Acetaminophen 650 mg 02/08/18 17:43 02/17/18 08:53 Tylenol - PO 650 mg Q4H PRN Administration FEVER Al Hydroxide/Mg Hydroxide 30 ml 02/08/18 17:43 Mylanta Oral Suspension - PO Q6H PRN DYSPEPSIA Eucalyptus/Menthol/Phenol/Sorbitol 1 each 02/08/18 17:43 Cepastat Lozenge - MM Q4H PRN SORE THROAT Guaifenesin 10 ml 02/08/18 17:43 Robitussin Dm - PO Q6H PRN COUGH Ibuprofen 400 mg 02/08/18 17:43 02/16/18 07:26 Motrin - PO 400 mg Q6H PRN Administration PAIN LEVEL 4-6 Loperamide HCl 4 mg 02/08/18 17:43 Imodium - PO Q6H PRN DIARRHEA Magnesium Citrate 300 ml 02/08/18 17:43 Citroma - PO Q48H PRN CONSTIPATION Magnesium Hydroxide 30 ml 02/08/18 17:43 Milk Of Magnesia - PO DAILY PRN CONSTIPATION Melatonin 5 mg 02/08/18 22:00 Melatonin PO HS PRN INSOMNIA Pseudoephedrine/Triprolidine 1 combo 02/08/18 17:43 Actifed - PO TID PRN NASAL CONGESTION Thiamine HCl 100 mg 02/08/18 22:00 03/07/18 21:38 Vitamin B1 - PO Not Given HS JORDANA Current Side Effect: No Lab tests ordered: Yes Lab tests reviewed: Yes Provider note:: Patient will complete this program on 03/09/18. He has met his treatment goals and will continue to address his Total face to face time:: 35 Psychiatric Treatment Plan - Problem List (1) Alcohol dependence Current Visit: Yes (2) Cocaine dependence Current Visit: Yes (3) Bipolar II disorder Current Visit: Yes
[2018-03-08] MEDS: THIAMINE HCL 100 MG TABLET (FP) PO SCH (22:12)
[2018-03-09 06:46] VITALS: BP 129/84; PULSE 64; TEMP 98.2
== END 2018-03-09 09:40 | disposition home or self-care (01) | DRG 895 ==
LOC: YASAS 14:05 → Y6N 17:40 → Y5N 02-11 14:50
PROVIDERS: ADMIT Surgery; ATTEND Psychiatry & Neurology Psychiatry
PROC: HZ42ZZZ Group Counseling for Substance Abuse Treatment, Cognitive-Behavioral (ICD-10-PCS; principal; 2018-02-08)
DX: F10.20 Alcohol dependence, uncomplicated (principal); F14.20 Cocaine dependence, uncomplicated; F31.81 Bipolar II disorder; F12.20 Cannabis dependence, uncomplicated; F19.24 Other psychoactive substance dependence with psychoactive substance-induced mood disorder; E86.0 Dehydration; R63.4 Abnormal weight loss
CPT/HCPCS: 36415; 71046-TC-FY; 80053; 81003; 85027; 86593; 93005; 93010

== ENCOUNTER 2018-08-18 11:54 | Inpatient (IN) | payer OTHER ==
[2018-08-18 14:05] VITALS: BMI 23.0
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
[2018-08-18] MEDS ORDERED: guaiFENesin/D-METHORPHAN HB 10 ML UNIT-DOSE CUPS PO PRN (17:53)
[2018-08-18] MEDS ORDERED: MENTHOL/PHENOL 1 EACH UD MM PRN (17:53)
[2018-08-18] MEDS ORDERED: LOPERAMIDE HCL 2 MG CAPSULE PO PRN (17:53)
[2018-08-18] MEDS ORDERED: MAGNESIUM CITRATE 300 ML BOTTLE PO PRN (17:53)
[2018-08-18] MEDS ORDERED: P-EPHED 60MG/TRIPROLIDI 2.5MG TABLET PO PRN (17:53)
[2018-08-18] MEDS ORDERED: MAGNESIUM HYDROX 2400MG/30ML ORAL SUSPENSION 30 ML CUP PO PRN (17:53)
[2018-08-18] MEDS ORDERED: ACETAMINOPHEN 325 MG TABLET (FP) PO PRN (17:53)
[2018-08-18] MEDS ORDERED: MAG HYDROX/AL HYDROX/SIMETH 30 ML UNIT-DOSE CUP PO PRN (17:53)
[2018-08-18] MEDS ORDERED: chlordiazePOXIDE HCL 25 MG CAPSULE PO PRN (17:55)
[2018-08-18] MEDS ORDERED: chlordiazePOXIDE HCL 25 MG CAPSULE PO ONE (17:55)
[2018-08-18] MEDS ORDERED: MELATONIN 5 MG TABLETS PO PRN (22:00)
[2018-08-18 22:24] LABS: URINE APPEARANCE CLEAR; URINE BILIRUBIN NEGATIVE (<2.0 mg/dL); URINE COLOR YELLOW; URINE GLUCOSE (UA) NEGATIVE (NEGATIVE); URINE KETONE NEGATIVE (NEGATIVE); URINE LEUK ESTERASE NEGATIVE (NEGATIVE); URINE NITRITE NEGATIVE (NEGATIVE); URINE PROTEIN NEGATIVE (NEGATIVE); URINE UROBILINOGEN NEGATIVE mg/dL (0.2-1.0)
[2018-08-18] MEDS: chlordiazePOXIDE HCL 25 MG CAPSULE PO SCH (22:33)
[2018-08-18] MEDS: THIAMINE HCL 100 MG TABLET (FP) PO SCH (22:33)
[2018-08-19] MEDS: chlordiazePOXIDE HCL 25 MG CAPSULE PO SCH ×3 (07:08→17:18)
--- NOTE | 2018-08-19 08:55 | EKG ---
Test Reason : Blood Pressure : / mmHG Vent. Rate : 066 BPM Atrial Rate : 066 BPM P-R Int : 188 ms QRS Dur : 084 ms QT Int : 414 ms P-R-T Axes : 072 080 074 degrees QTc Int : 434 ms NORMAL SINUS RHYTHM NONSPECIFIC T WAVE ABNORMALITY ABNORMAL ECG WHEN COMPARED WITH ECG OF 09-FEB-2018 09:03, NO SIGNIFICANT CHANGE WAS FOUND Confirmed by PATTI ESCALERA MD ([id number]) on 08/19/2018 8:54:41 AM Referred By: Confirmed By:PATTI ESCALERA MD
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
[2018-08-19] MEDS: PRENATAL VITAMINS W/ FOLIC ACID TABLET (FP) PO SCH (10:04)
[2018-08-19 10:07] LABS: HEMATOCRIT 41.4 % (35.4-49); MCH 25.3 pg (25.7-33.7); MCHC 31.3 g/dl (32.0-35.9); MEAN CELL VOLUME 80.7 fl (80-96); PLATELET COUNT 344 K/MM3 (134-434); RBC 5.14 M/mm3 (4.00-5.60); RDW 14.9 % (11.9-15.9); WHITE BLOOD COUNT 5.4 K/mm3 (4.0-10.0)
--- NOTE | 2018-08-19 10:23 | PN ---
S CIWA - CIWA Score Nausea/Vomitin-No Nausea/No Vomiting Muscle Tremors: None Anxiety: 4-Mod. Anxious/Guarded Agitation: 4-Moderately Restless Paroxysmal Sweats: No Perspiration Orientation: 0-Oriented Tacttile Disturbances: 0-None Auditory Disturbances: 0-None Visual Disturbances: 0-None Headache: 0-None Present CIWA-Ar Total Score: 8 BHS Progress Note (SOAP) Subjective: PATIENT ANXIOUS, IRRITATED. C/O INTERRUPTED SLEEP. Objective: 08/19/18 10:22 Vital Signs Temperature 97.4 F L 08/19/18 09:33 Pulse Rate 64 08/19/18 09:33 Respiratory Rate 16 08/19/18 09:33 Blood Pressure 104/64 08/19/18 09:33 O2 Sat by Pulse Oximetry (%) Laboratory Tests 08/18/18 08/19/18 20:40 07:00 WBC 5.4 RBC 5.14 Hgb 13.0 Hct 41.4 D MCV 80.7 MCH 25.3 L MCHC 31.3 L RDW 14.9 Plt Count 344 D MPV 8.0 Urine Color Yellow Urine Appearance Clear Urine pH 5.0 D Ur Specific [place] 1.027 Urine Protein Negative Urine Glucose (UA) Negative Urine Ketones Negative Urine Blood Negative Urine Nitrite Negative Urine Bilirubin Negative Urine Urobilinogen Negative Ur Leukocyte Esterase Negative PE: ALERT AND ORIENTED X 3 SKIN WARM AND DRY ANXIOUS/IRRITABLE EXT FULL ROM AMB AD ROSMERY Assessment: 08/19/18 10:23 WITHDRAWAL SX Plan: CONTINUE DETOX REGIMEN ENCOURAGE ORAL FLUIDS CONTINUE TO MONITOR CLINICALLY
[2018-08-19 10:38] LABS: ALK PHOS 55 U/L (45-117); ANION GAP 6 MMOL/L (8-16); BILIRUBIN,TOTAL 0.2 mg/dL (0.2-1); BLOOD UREA NITROGEN 11 mg/dL (7-18); CALCIUM 8.1 mg/dL (8.5-10.1); CHLORIDE 106 mmol/L (98-107); CO2 29 mmol/L (21-32); CREATININE 0.9 mg/dL (0.55-1.3); GLUCOSE,RANDOM 79 mg/dL (74-106); POTASSIUM 4.3 mmol/L (3.5-5.1); SGOT/AST 12 U/L (15-37); SGPT/ALT 17 U/L (13-61); SODIUM 141 mmol/L (136-145); TOT PROT 5.8 g/dl (6.4-8.2)
[2018-08-19] MEDS: IBUPROFEN 400 MG TABLET (FP) PO PRN (20:08)
[2018-08-19] MEDS: chlordiazePOXIDE 5 MG CAPSULE PO SCH (22:13)
[2018-08-19] MEDS: THIAMINE HCL 100 MG TABLET (FP) PO SCH (22:13)
[2018-08-20] MEDS: chlordiazePOXIDE 5 MG CAPSULE PO SCH ×4 (05:50→22:18)
[2018-08-20] MEDS: PRENATAL VITAMINS W/ FOLIC ACID TABLET (FP) PO SCH (10:34)
--- NOTE | 2018-08-20 10:35 | PN ---
S CIWA - CIWA Score Nausea/Vomitin-No Nausea/No Vomiting Muscle Tremors: None Anxiety: 4-Mod. Anxious/Guarded Agitation: 3 Paroxysmal Sweats: No Perspiration Orientation: 0-Oriented Tacttile Disturbances: 0-None Auditory Disturbances: 0-None Visual Disturbances: 0-None Headache: 0-None Present CIWA-Ar Total Score: 7 BHS Progress Note (SOAP) Subjective: PATIENT ANXIOUS/GUARDED. C/O INTERRUPTED SLEEP. Objective: 08/20/18 10:33 Vital Signs Temperature 97.9 F 08/20/18 10:00 Pulse Rate 74 08/20/18 10:00 Respiratory Rate 17 08/20/18 10:00 Blood Pressure 116/69 08/20/18 10:00 O2 Sat by Pulse Oximetry (%) Laboratory Tests 08/18/18 08/19/18 08/19/18 20:40 07:00 07:00 WBC 5.4 RBC 5.14 Hgb 13.0 Hct 41.4 D MCV 80.7 MCH 25.3 L MCHC 31.3 L RDW 14.9 Plt Count 344 D MPV 8.0 Sodium 141 Potassium 4.3 Chloride 106 Carbon Dioxide 29 Anion Gap 6 L BUN 11 Creatinine 0.9 Creat Clearance w eGFR > 60 Random Glucose 79 Calcium 8.1 L Total Bilirubin 0.2 AST 12 L ALT 17 Alkaline Phosphatase 55 Total Protein 5.8 L Albumin 3.0 L Urine Color Yellow Urine Appearance Clear Urine pH 5.0 D Ur Specific [place] 1.027 Urine Protein Negative Urine Glucose (UA) Negative Urine Ketones Negative Urine Blood Negative Urine Nitrite Negative Urine Bilirubin Negative Urine Urobilinogen Negative Ur Leukocyte Esterase Negative RPR Titer 08/19/18 07:00 WBC RBC Hgb Hct MCV MCH MCHC RDW Plt Count MPV Sodium Potassium Chloride Carbon Dioxide Anion Gap BUN Creatinine Creat Clearance w eGFR Random Glucose Calcium Total Bilirubin AST ALT Alkaline Phosphatase Total Protein Albumin Urine Color Urine Appearance Urine pH Ur Specific [place] Urine Protein Urine Glucose (UA) Urine Ketones Urine Blood Urine Nitrite Urine Bilirubin Urine Urobilinogen Ur Leukocyte Esterase RPR Titer Nonreactive PE: ALERT AND ORIENTED X 3 SKIN WARM AND DRY EXT FULL ROM, AMB AD ROSMERY ANXIOUS/IRRITABLE Assessment: 08/20/18 10:34 WITHDRAWAL SX Plan: CONTINUE DETOX ENCOURAGE ORAL FLUIDS CONTINUE TO MONITOR CLINICALLY
[2018-08-20] MEDS: IBUPROFEN 400 MG TABLET (FP) PO PRN ×2 (11:28→18:21)
[2018-08-20] MEDS: THIAMINE HCL 100 MG TABLET (FP) PO SCH (22:18)
[2018-08-21] MEDS: chlordiazePOXIDE 5 MG CAPSULE PO SCH ×4 (05:52→22:57)
[2018-08-21] MEDS: PRENATAL VITAMINS W/ FOLIC ACID TABLET (FP) PO SCH (10:03)
--- NOTE | 2018-08-21 12:48 | PN ---
BHS Progress Note (SOAP) Subjective: Denies any withdrawal symptoms; patient is anxious, restless Objective: 08/21/18 12:46 Last Vital Signs Temp Pulse Resp BP Pulse Ox 100.4 F H 72 16 113/72 08/21/18 09:25 08/21/18 09:25 08/21/18 09:25 08/21/18 09:25 Laboratory Tests 08/18/18 08/19/18 08/19/18 20:40 07:00 07:00 WBC 5.4 RBC 5.14 Hgb 13.0 Hct 41.4 D MCV 80.7 MCH 25.3 L MCHC 31.3 L RDW 14.9 Plt Count 344 D MPV 8.0 Sodium 141 Potassium 4.3 Chloride 106 Carbon Dioxide 29 Anion Gap 6 L BUN 11 Creatinine 0.9 Creat Clearance w eGFR > 60 Random Glucose 79 Calcium 8.1 L Total Bilirubin 0.2 AST 12 L ALT 17 Alkaline Phosphatase 55 Total Protein 5.8 L Albumin 3.0 L Urine Color Yellow Urine Appearance Clear Urine pH 5.0 D Ur Specific [place] 1.027 Urine Protein Negative Urine Glucose (UA) Negative Urine Ketones Negative Urine Blood Negative Urine Nitrite Negative Urine Bilirubin Negative Urine Urobilinogen Negative Ur Leukocyte Esterase Negative RPR Titer 08/19/18 07:00 WBC RBC Hgb Hct MCV MCH MCHC RDW Plt Count MPV Sodium Potassium Chloride Carbon Dioxide Anion Gap BUN Creatinine Creat Clearance w eGFR Random Glucose Calcium Total Bilirubin AST ALT Alkaline Phosphatase Total Protein Albumin Urine Color Urine Appearance Urine pH Ur Specific [place] Urine Protein Urine Glucose (UA) Urine Ketones Urine Blood Urine Nitrite Urine Bilirubin Urine Urobilinogen Ur Leukocyte Esterase RPR Titer Nonreactive Labs reviewed Assessment: 08/21/18 12:47 Withdrawal symptoms Plan: Continue detox Encouraged PO water intake
[2018-08-21] MEDS: IBUPROFEN 400 MG TABLET (FP) PO PRN (13:37)
[2018-08-21] MEDS ORDERED: chlordiazePOXIDE HCL 10 MG CAPSULE ONE (21:19)
[2018-08-21] MEDS: THIAMINE HCL 100 MG TABLET (FP) PO SCH (22:56)
[2018-08-22] MEDS: chlordiazePOXIDE 5 MG CAPSULE PO SCH ×2 (05:36→10:05)
[2018-08-22] MEDS: PRENATAL VITAMINS W/ FOLIC ACID TABLET (FP) PO SCH (10:04)
--- NOTE | 2018-08-22 12:01 | DS ---
[facility] Detox Discharge Summary Admission Date: 08/18/18 Discharge Date: 08/22/18 - History Present History: Alcohol Dependence Additional Comments: 52 years old male admitted on 08/18/18 for alcohol withdrawal sx completed detox regimen [facility] - Physical Exam Results Vital Signs: Vital Signs Temperature 97.6 F 08/22/18 09:35 Pulse Rate 69 08/22/18 09:35 Respiratory Rate 19 08/22/18 09:35 Blood Pressure 110/67 08/22/18 09:35 O2 Sat by Pulse Oximetry (%) Pertinent Admission Physical Exam Findings: alcohol withdrawal sx Vital Signs Temperature 97.6 F 08/22/18 09:35 Pulse Rate 69 08/22/18 09:35 Respiratory Rate 19 08/22/18 09:35 Blood Pressure 110/67 08/22/18 09:35 O2 Sat by Pulse Oximetry (%) Laboratory Last Values WBC 5.4 K/mm3 (4.0-10.0) 08/19/18 07:00 RBC 5.14 M/mm3 (4.00-5.60) 08/19/18 07:00 Hgb 13.0 GM/dL (11.7-16.9) 08/19/18 07:00 Hct 41.4 % (35.4-49) D 08/19/18 07:00 MCV 80.7 fl (80-96) 08/19/18 07:00 MCH 25.3 pg (25.7-33.7) L 08/19/18 07:00 MCHC 31.3 g/dl (32.0-35.9) L 08/19/18 07:00 RDW 14.9 % (11.9-15.9) 08/19/18 07:00 Plt Count 344 K/MM3 (134-434) D 08/19/18 07:00 MPV 8.0 fl (7.5-11.1) 08/19/18 07:00 Sodium 141 mmol/L (136-145) 08/19/18 07:00 Potassium 4.3 mmol/L (3.5-5.1) 08/19/18 07:00 Chloride 106 mmol/L (98-107) 08/19/18 07:00 Carbon Dioxide 29 mmol/L (21-32) 08/19/18 07:00 Anion Gap 6 MMOL/L (8-16) L 08/19/18 07:00 BUN 11 mg/dL (7-18) 08/19/18 07:00 Creatinine 0.9 mg/dL (0.55-1.3) 08/19/18 07:00 Creat Clearance w eGFR > 60 (>60) 08/19/18 07:00 Random Glucose 79 mg/dL (74-106) 08/19/18 07:00 Calcium 8.1 mg/dL (8.5-10.1) L 08/19/18 07:00 Total Bilirubin 0.2 mg/dL (0.2-1) 08/19/18 07:00 AST 12 U/L (15-37) L 08/19/18 07:00 ALT 17 U/L (13-61) 08/19/18 07:00 Alkaline Phosphatase 55 U/L (45-117) 08/19/18 07:00 Total Protein 5.8 g/dl (6.4-8.2) L 08/19/18 07:00 Albumin 3.0 g/dl (3.4-5.0) L 08/19/18 07:00 Urine Color Yellow 08/18/18 20:40 Urine Appearance Clear 08/18/18 20:40 Urine pH 5.0 (5.0-8.0) D 08/18/18 20:40 Ur Specific [place] 1.027 (1.010-1.035) 08/18/18 20:40 Urine Protein Negative (NEGATIVE) 08/18/18 20:40 Urine Glucose (UA) Negative (NEGATIVE) 08/18/18 20:40 Urine Ketones Negative (NEGATIVE) 08/18/18 20:40 Urine Blood Negative (NEGATIVE) 08/18/18 20:40 Urine Nitrite Negative (NEGATIVE) 08/18/18 20:40 Urine Bilirubin Negative (<2.0 mg/dL) 08/18/18 20:40 Urine Urobilinogen Negative mg/dL (0.2-1.0) 08/18/18 20:40 Ur Leukocyte Esterase Negative (NEGATIVE) 08/18/18 20:40 RPR Titer Nonreactive (NONREACTIVE) 08/19/18 07:00 lab noted - Treatment Hospital Course: Detox Protocol Followed, Detoxed Safely, Responded well, Discharged Condition Good, Rehab Referral Accepted Patient has Accepted a [facility] Referral to: [facility] - Medication Discharge Medications: Ambulatory Orders NK [No Known Home Medication] 08/18/18 - Diagnosis (1) Alcohol dependence with uncomplicated withdrawal Current Visit: Yes Status: Acute (2) PPD positive Current Visit: Yes Status: Resolved - AMA Did Patient Leave Against Medical Advice: No
[2018-08-22] MEDS ORDERED: hydrOXYzine PAMOATE 50 MG CAPSULE (FP) PO PRN (16:37)
[2018-08-22] MEDS: IBUPROFEN 400 MG TABLET (FP) PO PRN (17:35)
[2018-08-22] MEDS: THIAMINE HCL 100 MG TABLET (FP) PO SCH (21:39)
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
[2018-08-23] MEDS: PRENATAL VITAMINS W/ FOLIC ACID TABLET (FP) PO SCH (11:18)
[2018-08-23] MEDS: THIAMINE HCL 100 MG TABLET (FP) PO SCH (22:40)
[2018-08-24] MEDS: PRENATAL VITAMINS W/ FOLIC ACID TABLET (FP) PO SCH (11:24)
--- NOTE | 2018-08-24 11:28 | PN ---
[facility] Progress Note Note: NURSE MECCA REPORTS THAT THIS PATIENT HAS BEEN REFUSING HIS VITAMINS STATING HE WILL GET IT FROM FOOD AND DOES NOT WANT TO BE CALLED TO TAKE VITAMINS. Vital Signs 08/24/18 08/24/18 03:30 06:45 Temperature 97.8 F Pulse Rate 65 Respiratory 18 18 Rate Blood Pressure 123/82 Laboratory Tests 08/18/18 08/19/18 08/19/18 20:40 07:00 07:00 WBC 5.4 RBC 5.14 Hgb 13.0 Hct 41.4 D MCV 80.7 MCH 25.3 L MCHC 31.3 L RDW 14.9 Plt Count 344 D MPV 8.0 Sodium 141 Potassium 4.3 Chloride 106 Carbon Dioxide 29 Anion Gap 6 L BUN 11 Creatinine 0.9 Creat Clearance w eGFR > 60 Random Glucose 79 Calcium 8.1 L Total Bilirubin 0.2 AST 12 L ALT 17 Alkaline Phosphatase 55 Total Protein 5.8 L Albumin 3.0 L Urine Color Yellow Urine Appearance Clear Urine pH 5.0 D Ur Specific [place] 1.027 Urine Protein Negative Urine Glucose (UA) Negative Urine Ketones Negative Urine Blood Negative Urine Nitrite Negative Urine Bilirubin Negative Urine Urobilinogen Negative Ur Leukocyte Esterase Negative RPR Titer 08/19/18 07:00 WBC RBC Hgb Hct MCV MCH MCHC RDW Plt Count MPV Sodium Potassium Chloride Carbon Dioxide Anion Gap BUN Creatinine Creat Clearance w eGFR Random Glucose Calcium Total Bilirubin AST ALT Alkaline Phosphatase Total Protein Albumin Urine Color Urine Appearance Urine pH Ur Specific [place] Urine Protein Urine Glucose (UA) Urine Ketones Urine Blood Urine Nitrite Urine Bilirubin Urine Urobilinogen Ur Leukocyte Esterase RPR Titer Nonreactive NAD PLAN:D/C VITAMINS
[2018-08-24] MEDS: IBUPROFEN 400 MG TABLET (FP) PO PRN (17:07)
[2018-08-24] MEDS: THIAMINE HCL 100 MG TABLET (FP) PO SCH (22:32)
[2018-08-25] MEDS: THIAMINE HCL 100 MG TABLET (FP) PO SCH (21:42)
[2018-08-26] MEDS: THIAMINE HCL 100 MG TABLET (FP) PO SCH (22:19)
[2018-08-27] MEDS: THIAMINE HCL 100 MG TABLET (FP) PO SCH (22:33)
[2018-08-28] MEDS: THIAMINE HCL 100 MG TABLET (FP) PO SCH (22:05)
[2018-08-29] MEDS: THIAMINE HCL 100 MG TABLET (FP) PO SCH (21:37)
[2018-08-30] MEDS: THIAMINE HCL 100 MG TABLET (FP) PO SCH (22:04)
[2018-08-31] MEDS: THIAMINE HCL 100 MG TABLET (FP) PO SCH (22:18)
[2018-09-01] MEDS: THIAMINE HCL 100 MG TABLET (FP) PO SCH (22:14)
[2018-09-02] MEDS: THIAMINE HCL 100 MG TABLET (FP) PO SCH (22:20)
[2018-09-03] MEDS: THIAMINE HCL 100 MG TABLET (FP) PO SCH (21:38)
[2018-09-04] MEDS: THIAMINE HCL 100 MG TABLET (FP) PO SCH (22:08)
[2018-09-05] MEDS: THIAMINE HCL 100 MG TABLET (FP) PO SCH (21:35)
[2018-09-06] MEDS: THIAMINE HCL 100 MG TABLET (FP) PO SCH (22:27)
[2018-09-07] MEDS: THIAMINE HCL 100 MG TABLET (FP) PO SCH (21:27)
[2018-09-08] MEDS: THIAMINE HCL 100 MG TABLET (FP) PO SCH (21:29)
[2018-09-09] MEDS: THIAMINE HCL 100 MG TABLET (FP) PO SCH (22:14)
[2018-09-10] MEDS: THIAMINE HCL 100 MG TABLET (FP) PO SCH (22:39)
[2018-09-11] MEDS: THIAMINE HCL 100 MG TABLET (FP) PO SCH (22:19)
[2018-09-12 07:09] VITALS: BP 125/76; PULSE 63; TEMP 98
--- NOTE | 2018-09-12 10:09 | PN ---
Psychiatric Progress Note Vital Signs: Vital Signs Period Temp Pulse Resp BP Sys/Haynes Pulse Ox Last 24 Hr 98.0 F 63 16-18 125/76 Date of Session: 09/12/18 Chief Complaint:: Discharge visit Current Medications: Active Medications Generic Name Dose Route Start Last Admin Trade Name Freq PRN Reason Stop Dose Admin Acetaminophen 650 mg 08/18/18 17:53 Tylenol - PO Q4H PRN FEVER Al Hydroxide/Mg Hydroxide 30 ml 08/18/18 17:53 Mylanta Oral Suspension - PO Q6H PRN DYSPEPSIA Eucalyptus/Menthol/Phenol/Sorbitol 1 each 08/18/18 17:53 Cepastat Lozenge - MM Q4H PRN SORE THROAT Guaifenesin 10 ml 08/18/18 17:53 Robitussin Dm - PO Q6H PRN COUGH Hydroxyzine Pamoate 50 mg 08/22/18 16:37 Vistaril - PO Q4H PRN ANXIETY Ibuprofen 400 mg 08/18/18 17:53 08/24/18 17:07 Motrin - PO 400 mg Q6H PRN Administration PAIN LEVEL 4-6 Loperamide HCl 4 mg 08/18/18 17:53 Imodium - PO Q6H PRN DIARRHEA Magnesium Citrate 300 ml 08/18/18 17:53 Citroma - PO Q48H PRN CONSTIPATION Magnesium Hydroxide 30 ml 08/18/18 17:53 Milk Of Magnesia - PO DAILY PRN CONSTIPATION Melatonin 5 mg 08/18/18 22:00 Melatonin PO HS PRN INSOMNIA Pseudoephedrine/Triprolidine 1 combo 08/18/18 17:53 Actifed - PO TID PRN NASAL CONGESTION Thiamine HCl 100 mg 08/18/18 22:00 09/11/18 22:19 Vitamin B1 - PO Not Given HS COUNT INCLUDES THE [facility] Current Side Effect: No Lab tests ordered: No Lab tests reviewed: Yes
== END 2018-09-12 10:40 | disposition home or self-care (01) | DRG 895 ==
LOC: YASAS 11:54 → Y3N 16:54 → Y5N 08-22 14:24
PROVIDERS: ATTEND Psychiatry & Neurology Psychiatry
PROC: HZ2ZZZZ Detoxification Services for Substance Abuse Treatment (ICD-10-PCS; 2018-08-18)
PROC: HZ42ZZZ Group Counseling for Substance Abuse Treatment, Cognitive-Behavioral (ICD-10-PCS; principal; 2018-08-22)
DX: F10.20 Alcohol dependence, uncomplicated (principal); F14.20 Cocaine dependence, uncomplicated; F31.81 Bipolar II disorder; F31.9 Bipolar disorder, unspecified; F19.24 Other psychoactive substance dependence with psychoactive substance-induced mood disorder; F41.9 Anxiety disorder, unspecified; R76.11 Nonspecific reaction to tuberculin skin test without active tuberculosis; Z94.5 Skin transplant status
CPT/HCPCS: 36415; 80053; 81003; 85027; 86593; 93005; 93010

== ENCOUNTER 2018-10-14 11:06 | Inpatient (IN) | payer OTHER ==
[2018-10-14 11:22] VITALS: BMI 23.7
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
[2018-10-14] MEDS ORDERED: guaiFENesin/D-METHORPHAN HB 10 ML UNIT-DOSE CUPS PO PRN (14:47)
[2018-10-14] MEDS ORDERED: MAGNESIUM CITRATE 300 ML BOTTLE PO PRN (14:47)
[2018-10-14] MEDS ORDERED: MENTHOL/PHENOL 1 EACH UD MM PRN (14:47)
[2018-10-14] MEDS ORDERED: MAGNESIUM HYDROX 2400MG/30ML ORAL SUSPENSION 30 ML CUP PO PRN (14:47)
[2018-10-14] MEDS ORDERED: MAG HYDROX/AL HYDROX/SIMETH 30 ML UNIT-DOSE CUP PO PRN (14:47)
[2018-10-14] MEDS ORDERED: P-EPHED 60MG/TRIPROLIDI 2.5MG TABLET PO PRN (14:47)
[2018-10-14] MEDS ORDERED: ACETAMINOPHEN 325 MG TABLET (FP) PO PRN (14:47)
[2018-10-14] MEDS ORDERED: chlordiazePOXIDE HCL 25 MG CAPSULE PO PRN (14:47)
[2018-10-14] MEDS ORDERED: IBUPROFEN 400 MG TABLET (FP) PO PRN (14:47)
[2018-10-14] MEDS: chlordiazePOXIDE HCL 25 MG CAPSULE PO SCH ×2 (18:45→22:14)
[2018-10-14] MEDS ORDERED: MELATONIN 5 MG TABLETS PO PRN (22:00)
[2018-10-14] MEDS: THIAMINE HCL 100 MG TABLET (FP) PO SCH (22:14)
[2018-10-15] MEDS: chlordiazePOXIDE HCL 25 MG CAPSULE PO SCH ×4 (05:36→22:25)
[2018-10-15] MEDS: PRENATAL VITAMINS W/ FOLIC ACID TABLET (FP) PO SCH (10:43)
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
--- NOTE | 2018-10-15 15:07 | PN ---
S CIWA - CIWA Score Nausea/Vomitin-No Nausea/No Vomiting Muscle Tremors: 4-Moderate,w/Arms Extend Anxiety: 2 Agitation: 1-Slight > Activity Paroxysmal Sweats: 3 Orientation: 0-Oriented Tacttile Disturbances: 2-Mild Itch/Numbness/Burn Auditory Disturbances: 0-None Visual Disturbances: 0-None Headache: 0-None Present CIWA-Ar Total Score: 12 BHS Progress Note (SOAP) Subjective: Stomach Cramping, Tremors, Sweating. Objective: PATIENT A & O X 3. IN NO ACUTE DISTRESS. 10/15/18 15:05 Vital Signs Temperature 97.3 F L 10/15/18 13:30 Pulse Rate 72 10/15/18 13:30 Respiratory Rate 18 10/15/18 13:30 Blood Pressure 130/74 10/15/18 13:30 O2 Sat by Pulse Oximetry (%) ADMISSION LAB RESULTS PENDING. 10/15/18 15:06 Assessment: 10/15/18 15:06 WITHDRAWAL SYMPTOMS. Plan: CONTINUE DETOX. INCREASE DAILY PO FLUID INTAKE.
[2018-10-15] MEDS ORDERED: DIVALPROEX SODIUM 250 MG TABLET E.C. PO SCH (22:00)
[2018-10-15] MEDS: THIAMINE HCL 100 MG TABLET (FP) PO SCH (22:25)
[2018-10-15] MEDS: DIVALPROEX SODIUM 500 MG TABLET E.C. PO SCH (22:25)
[2018-10-16] MEDS: chlordiazePOXIDE HCL 25 MG CAPSULE PO SCH ×2 (06:56→10:56)
[2018-10-16] MEDS: CITALOPRAM HYDROBROMIDE 20 MG TABLET (FP) PO SCH (10:56)
[2018-10-16] MEDS: PRENATAL VITAMINS W/ FOLIC ACID TABLET (FP) PO SCH (10:56)
--- NOTE | 2018-10-16 15:39 | PN ---
S CIWA - CIWA Score Nausea/Vomitin-Mild Nausea/No Vomiting Muscle Tremors: 3 Anxiety: 3 Agitation: 3 Paroxysmal Sweats: 3 Orientation: 0-Oriented Tacttile Disturbances: 0-None Auditory Disturbances: 0-None Visual Disturbances: 0-None Headache: 0-None Present CIWA-Ar Total Score: 13 B[facility] Progress Note (SOAP) Subjective: Denies any symptoms. Patient appears anxious Objective: 10/16/18 15:37 Last Vital Signs Temp Pulse Resp BP Pulse Ox 98.3 F 65 20 115/65 10/16/18 14:13 10/16/18 14:13 10/16/18 14:13 10/16/18 14:13 No admission labs (will reorder in AM) Assessment: 10/16/18 15:39 Withdrawal symptoms Plan: Continue detox Encouraged PO water intake
[2018-10-16] MEDS: chlordiazePOXIDE 5 MG CAPSULE PO SCH ×2 (17:39→22:45)
[2018-10-16] MEDS: DIVALPROEX SODIUM 500 MG TABLET E.C. PO SCH (22:45)
[2018-10-16] MEDS: THIAMINE HCL 100 MG TABLET (FP) PO SCH (22:45)
[2018-10-17] MEDS: chlordiazePOXIDE 5 MG CAPSULE PO SCH ×2 (05:45→10:57)
[2018-10-17 10:35] LABS: BASO % 0.8 % (0-2.0); EOS % 2.8 % (0-4.5); HEMATOCRIT 40.5 % (35.4-49); HEMOGLOBIN 13.7 GM/dL (11.7-16.9); LYMPH % 30.6 % (8-40); MCHC 33.7 g/dl (32.0-35.9); MEAN CELL VOLUME 80.1 fl (80-96); MEAN PLT VOLUME 8.3 fl (7.5-11.1); NEUT % 54.8 % (42.8-82.8); PLATELET COUNT 288 K/MM3 (134-434); RBC 5.06 M/mm3 (4.00-5.60); RDW 14.7 % (11.9-15.9); WHITE BLOOD COUNT 4.9 K/mm3 (4.0-10.0)
[2018-10-17 10:39] LABS: ALBUMIN 3.1 g/dl (3.4-5.0); ALK PHOS 52 U/L (45-117); ANION GAP 6 MMOL/L (8-16); BILIRUBIN,TOTAL 0.1 mg/dL (0.2-1); BLOOD UREA NITROGEN 15 mg/dL (7-18); CALCIUM 8.8 mg/dL (8.5-10.1); CHLORIDE 104 mmol/L (98-107); CO2 29 mmol/L (21-32); GLUCOSE,RANDOM 86 mg/dL (74-106); POTASSIUM 4.4 mmol/L (3.5-5.1); SGOT/AST 5 U/L (15-37); SGPT/ALT 14 U/L (13-61); SODIUM 139 mmol/L (136-145); TOT PROT 6.3 g/dl (6.4-8.2)
[2018-10-17] MEDS: CITALOPRAM HYDROBROMIDE 20 MG TABLET (FP) PO SCH (10:57)
[2018-10-17] MEDS: PRENATAL VITAMINS W/ FOLIC ACID TABLET (FP) PO SCH (10:57)
--- NOTE | 2018-10-17 13:28 | PN ---
S Progress Note (SOAP) Subjective: feeling better less tremor mild gi distress little sweating Objective: 10/17/18 13:28 Vital Signs Temperature 96 F L 10/17/18 10:04 Pulse Rate 67 10/17/18 10:04 Respiratory Rate 18 10/17/18 10:04 Blood Pressure 123/75 10/17/18 10:04 O2 Sat by Pulse Oximetry (%) Laboratory Last Values WBC 4.9 K/mm3 (4.0-10.0) 10/17/18 08:15 RBC 5.06 M/mm3 (4.00-5.60) 10/17/18 08:15 Hgb 13.7 GM/dL (11.7-16.9) 10/17/18 08:15 Hct 40.5 % (35.4-49) 10/17/18 08:15 MCV 80.1 fl (80-96) 10/17/18 08:15 MCH 27.0 pg (25.7-33.7) 10/17/18 08:15 MCHC 33.7 g/dl (32.0-35.9) 10/17/18 08:15 RDW 14.7 % (11.9-15.9) 10/17/18 08:15 Plt Count 288 K/MM3 (134-434) 10/17/18 08:15 MPV 8.3 fl (7.5-11.1) 10/17/18 08:15 Absolute Neuts (auto) 2.7 K/mm3 (1.5-8.0) 10/17/18 08:15 Neutrophils % 54.8 % (42.8-82.8) 10/17/18 08:15 Lymphocytes % 30.6 % (8-40) 10/17/18 08:15 Monocytes % 11.0 % (3.8-10.2) H 10/17/18 08:15 Eosinophils % 2.8 % (0-4.5) 10/17/18 08:15 Basophils % 0.8 % (0-2.0) 10/17/18 08:15 Nucleated RBC % 0 % (0-0) 10/17/18 08:15 Sodium 139 mmol/L (136-145) 10/17/18 08:15 Potassium 4.4 mmol/L (3.5-5.1) 10/17/18 08:15 Chloride 104 mmol/L (98-107) 10/17/18 08:15 Carbon Dioxide 29 mmol/L (21-32) 10/17/18 08:15 Anion Gap 6 MMOL/L (8-16) L 10/17/18 08:15 BUN 15 mg/dL (7-18) 10/17/18 08:15 Creatinine 1.0 mg/dL (0.55-1.3) 10/17/18 08:15 Creat Clearance w eGFR > 60 (>60) 10/17/18 08:15 Random Glucose 86 mg/dL (74-106) 10/17/18 08:15 Calcium 8.8 mg/dL (8.5-10.1) 10/17/18 08:15 Total Bilirubin 0.1 mg/dL (0.2-1) L 10/17/18 08:15 AST 5 U/L (15-37) L 10/17/18 08:15 ALT 14 U/L (13-61) 10/17/18 08:15 Alkaline Phosphatase 52 U/L (45-117) 10/17/18 08:15 Total Protein 6.3 g/dl (6.4-8.2) L 10/17/18 08:15 Albumin 3.1 g/dl (3.4-5.0) L 10/17/18 08:15 RPR Titer Nonreactive (NONREACTIVE) 10/17/18 08:15 lab noted Assessment: 10/17/18 13:28 mild withdrawal sx Plan: continue detox
[2018-10-17] MEDS: chlordiazePOXIDE HCL 10 MG CAPSULE PO SCH ×2 (17:04→22:03)
[2018-10-17] MEDS: DIVALPROEX SODIUM 500 MG TABLET E.C. PO SCH (22:02)
[2018-10-17] MEDS: THIAMINE HCL 100 MG TABLET (FP) PO SCH (22:02)
[2018-10-18] MEDS: chlordiazePOXIDE HCL 10 MG CAPSULE PO SCH ×2 (06:19→10:31)
[2018-10-18 09:32] VITALS: BP 108/61; PULSE 70; TEMP 98.3
[2018-10-18] MEDS: CITALOPRAM HYDROBROMIDE 20 MG TABLET (FP) PO SCH (10:30)
[2018-10-18] MEDS: PRENATAL VITAMINS W/ FOLIC ACID TABLET (FP) PO SCH (10:30)
[2018-10-18 12:27] LABS: URINE APPEARANCE CLEAR; URINE BILIRUBIN NEGATIVE (<2.0 mg/dL); URINE COLOR LTYELLOW; URINE GLUCOSE (UA) NEGATIVE (NEGATIVE); URINE KETONE NEGATIVE (NEGATIVE); URINE LEUK ESTERASE NEGATIVE (NEGATIVE); URINE NITRITE NEGATIVE (NEGATIVE); URINE PROTEIN NEGATIVE (NEGATIVE); URINE UROBILINOGEN NEGATIVE mg/dL (0.2-1.0)
--- NOTE | 2018-10-18 21:17 | DS ---
[facility] Detox Discharge Summary Admission Date: 10/14/18 Discharge Date: 10/18/18 - History Present History: Alcohol Dependence, Cocaine Dependence Additional Comments: PATIENT GOING TO [facility] ([place], [place]) FOR AFTERCARE. PATIENT WAS DISCHARGED FROM DETOX UNIT IN STABLE MEDICAL CONDITION. Pertinent Past History: History of Weight Loss, Bipolar II Disorder. - Physical Exam Results Vital Signs: Vital Signs Temperature 98.3 F 10/18/18 09:31 Pulse Rate 70 10/18/18 09:31 Respiratory Rate 17 10/18/18 09:31 Blood Pressure 108/61 10/18/18 09:31 O2 Sat by Pulse Oximetry (%) Pertinent Admission Physical Exam Findings: WITHDRAWAL SYMPTOMS. Laboratory Tests 10/17/18 10/17/18 10/17/18 08:15 08:15 08:15 WBC 4.9 RBC 5.06 Hgb 13.7 Hct 40.5 MCV 80.1 MCH 27.0 MCHC 33.7 RDW 14.7 Plt Count 288 MPV 8.3 Absolute Neuts (auto) 2.7 Neutrophils % 54.8 Lymphocytes % 30.6 Monocytes % 11.0 H Eosinophils % 2.8 Basophils % 0.8 Nucleated RBC % 0 Sodium 139 Potassium 4.4 Chloride 104 Carbon Dioxide 29 Anion Gap 6 L BUN 15 Creatinine 1.0 Creat Clearance w eGFR > 60 Random Glucose 86 Calcium 8.8 Total Bilirubin 0.1 L AST 5 L ALT 14 Alkaline Phosphatase 52 Total Protein 6.3 L Albumin 3.1 L Urine Color Urine Appearance Urine pH Ur Specific Witt Urine Protein Urine Glucose (UA) Urine Ketones Urine Blood Urine Nitrite Urine Bilirubin Urine Urobilinogen Ur Leukocyte Esterase RPR Titer Nonreactive 10/18/18 08:50 WBC RBC Hgb Hct MCV MCH MCHC RDW Plt Count MPV Absolute Neuts (auto) Neutrophils % Lymphocytes % Monocytes % Eosinophils % Basophils % Nucleated RBC % Sodium Potassium Chloride Carbon Dioxide Anion Gap BUN Creatinine Creat Clearance w eGFR Random Glucose Calcium Total Bilirubin AST ALT Alkaline Phosphatase Total Protein Albumin Urine Color Ltyellow Urine Appearance Clear Urine pH 6.0 Ur Specific Witt 1.015 Urine Protein Negative Urine Glucose (UA) Negative Urine Ketones Negative Urine Blood Negative Urine Nitrite Negative Urine Bilirubin Negative Urine Urobilinogen Negative Ur Leukocyte Esterase Negative RPR Titer LABS NOTED. - Treatment Hospital Course: Detox Protocol Followed, Detoxed Safely, Responded well, Discharged Condition Good, Rehab Referral Accepted Patient has Accepted a Rehab Referral to: [facility] ([place], [place]). - Medication Discharge Medications: Ambulatory Orders Citalopram Hydrobromide [Celexa -] 20 mg PO DAILY 10/15/18 Divalproex Sodium [Depakote] 500 mg PO HS 10/15/18 - Diagnosis (1) Alcohol dependence with uncomplicated withdrawal Status: Acute (2) Bipolar II disorder Status: Chronic (3) Cocaine dependence Status: Chronic Qualifiers: Substance use status: uncomplicated Qualified Code(s): F14.20 - Cocaine dependence, uncomplicated (4) Weight loss Status: Chronic - AMA Did Patient Leave Against Medical Advice: No
== END 2018-10-18 11:28 | disposition home or self-care (01) | DRG 897 ==
LOC: YASAS 11:06 → Y3N 16:23
PROC: HZ2ZZZZ Detoxification Services for Substance Abuse Treatment (ICD-10-PCS; principal; 2018-10-14)
DX: F10.230 Alcohol dependence with withdrawal, uncomplicated (principal); F14.20 Cocaine dependence, uncomplicated; F31.81 Bipolar II disorder; R63.4 Abnormal weight loss; Z68.23 Body mass index [BMI] 23.0-23.9, adult
CPT/HCPCS: 36415; 80053; 81003; 85025; 86593

== ENCOUNTER 2018-12-12 13:31 | Inpatient (IN) | payer OTHER ==
[2018-12-12 14:38] VITALS: BMI 23.7
[2018-12-12] MEDS ORDERED: MELATONIN 5 MG TABLETS PO PRN (16:27)
[2018-12-12] MEDS ORDERED: METHOCARBAMOL 500 MG TABLET PO PRN (16:27)
[2018-12-12] MEDS ORDERED: hydrOXYzine PAMOATE 25 MG CAPSULE (FP) PO PRN (16:27)
[2018-12-12] MEDS ORDERED: guaiFENesin 200 MG/10 ML 10 ML UNIT-DOSE CUPS PO PRN (16:27)
[2018-12-12] MEDS ORDERED: DICYCLOMINE HCL 10 MG CAPSULE PO PRN (16:27)
[2018-12-12] MEDS ORDERED: MAGNESIUM HYDROX 2400MG/30ML ORAL SUSPENSION 30 ML CUP PO PRN (16:27)
[2018-12-12] MEDS ORDERED: ACETAMINOPHEN 325 MG TABLET (FP) PO PRN ×2 (16:27)
[2018-12-12] MEDS ORDERED: IBUPROFEN 400 MG TABLET (FP) PO PRN (16:27)
[2018-12-12] MEDS ORDERED: BISMUTH SUBSALICYLATE 524 MG/30 ML UD PO PRN (16:27)
[2018-12-12] MEDS ORDERED: ONDANSETRON *ODT* 4 MG TABLET SL PRN (16:27)
[2018-12-12] MEDS ORDERED: MAG HYDROX/AL HYDROX/SIMETH 30 ML UNIT-DOSE CUP PO PRN (16:27)
[2018-12-12] MEDS ORDERED: MAGNESIUM CITRATE 300 ML BOTTLE PO PRN (16:27)
[2018-12-12] MEDS: chlordiazePOXIDE HCL 10 MG CAPSULE PO PRN (18:31)
[2018-12-12] MEDS: MENTHOL/PHENOL 1 EACH UD MM PRN (19:21)
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
[2018-12-12] MEDS: chlordiazePOXIDE HCL 25 MG CAPSULE PO SCH (22:07)
[2018-12-12] MEDS: THIAMINE HCL 100 MG TABLET (FP) PO SCH (22:08)
[2018-12-13] MEDS: chlordiazePOXIDE HCL 25 MG CAPSULE PO SCH ×2 (05:51→13:37)
--- NOTE | 2018-12-13 09:01 | PN ---
[facility] CIWA - CIWA Score Nausea/Vomitin Muscle Tremors: 2 Anxiety: 2 Agitation: 2 Paroxysmal Sweats: 1-Minimal Palms Moist Orientation: 0-Oriented Tacttile Disturbances: 1-Very Mild Itch/Numbness Auditory Disturbances: 1-Very Mild Visual Disturbances: 0-None Headache: 2-Mild CIWA-Ar Total Score: 13 [facility] Progress Note (SOAP) Subjective: alert,irritable,anxious interrupted sleep,tremor Objective: 12/13/18 09:00 Vital Signs Temperature 97.7 F 12/13/18 07:10 Pulse Rate 52 L 12/13/18 07:10 Respiratory Rate 18 12/13/18 07:10 Blood Pressure 138/87 12/13/18 07:10 O2 Sat by Pulse Oximetry (%) 12/13/18 09:00 labs pending Assessment: 12/13/18 09:01 withdrawal symptom Plan: continue detox
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
[2018-12-13] MEDS: PRENATAL VITAMINS W/ FOLIC ACID TABLET (FP) PO SCH (10:10)
[2018-12-13] MEDS: chlordiazePOXIDE HCL 10 MG CAPSULE PO PRN (10:12)
[2018-12-13] MEDS: DIVALPROEX SODIUM 500 MG TABLET E.C. PO SCH ×2 (12:30→22:27)
[2018-12-13 12:51] LABS: ALBUMIN 3.1 g/dl (3.4-5.0); ALK PHOS 48 U/L (45-117); ANION GAP 6 MMOL/L (8-16); BILIRUBIN,TOTAL 0.2 mg/dL (0.2-1); BLOOD UREA NITROGEN 13 mg/dL (7-18); CALCIUM 8.4 mg/dL (8.5-10.1); CHLORIDE 106 mmol/L (98-107); CO2 29 mmol/L (21-32); CREATININE 1.1 mg/dL (0.55-1.3); GLUCOSE,RANDOM 78 mg/dL (74-106); POTASSIUM 4.3 mmol/L (3.5-5.1); SGOT/AST 8 U/L (15-37); SGPT/ALT 13 U/L (13-61); SODIUM 140 mmol/L (136-145); TOT PROT 6.5 g/dl (6.4-8.2)
[2018-12-13] MEDS: CITALOPRAM HYDROBROMIDE 20 MG TABLET (FP) PO SCH (13:03)
[2018-12-13 13:06] LABS: HEMATOCRIT 40.3 % (35.4-49); HEMOGLOBIN 13.5 GM/dL (11.7-16.9); MCH 27.4 pg (25.7-33.7); MCHC 33.4 g/dl (32.0-35.9); MEAN PLT VOLUME 7.7 fl (7.5-11.1); PLATELET COUNT 281 K/MM3 (134-434); RBC 4.91 M/mm3 (4.00-5.60); RDW 15.8 % (11.9-15.9); WHITE BLOOD COUNT 4.8 K/mm3 (4.0-10.0)
[2018-12-13] MEDS: MENTHOL/PHENOL 1 EACH UD MM PRN (13:39)
[2018-12-13] MEDS: chlordiazePOXIDE 5 MG CAPSULE PO SCH (22:26)
[2018-12-13] MEDS: THIAMINE HCL 100 MG TABLET (FP) PO SCH (22:27)
[2018-12-14] MEDS: chlordiazePOXIDE 5 MG CAPSULE PO SCH ×2 (06:05→13:42)
[2018-12-14] MEDS: DIVALPROEX SODIUM 500 MG TABLET E.C. PO SCH ×2 (10:50→22:15)
[2018-12-14] MEDS: CITALOPRAM HYDROBROMIDE 20 MG TABLET (FP) PO SCH (10:51)
[2018-12-14] MEDS: PRENATAL VITAMINS W/ FOLIC ACID TABLET (FP) PO SCH (10:51)
--- NOTE | 2018-12-14 15:00 | PN ---
S CIWA - CIWA Score Nausea/Vomitin-No Nausea/No Vomiting Muscle Tremors: 3 Anxiety: 3 Agitation: 1-Slight > Activity Paroxysmal Sweats: No Perspiration Orientation: 0-Oriented Tacttile Disturbances: 2-Mild Itch/Numbness/Burn Auditory Disturbances: 2-Mild Harshness/Frighten Visual Disturbances: 0-None Headache: 0-None Present CIWA-Ar Total Score: 11 BHS Progress Note (SOAP) Subjective: Tremors, Anxious, Interrupted Sleep. Objective: PATIENT A & O X 3, OBSERVED AMBULATING ON UNIT. IN NO ACUTE DISTRESS. 12/14/18 15:02 Vital Signs Temperature 98.1 F 12/14/18 13:34 Pulse Rate 63 12/14/18 13:34 Respiratory Rate 18 12/14/18 13:34 Blood Pressure 135/73 12/14/18 13:34 O2 Sat by Pulse Oximetry (%) Laboratory Tests 12/13/18 12/13/18 12/13/18 07:00 07:00 07:00 WBC 4.8 RBC 4.91 Hgb 13.5 Hct 40.3 MCV 82.0 MCH 27.4 MCHC 33.4 RDW 15.8 Plt Count 281 MPV 7.7 Sodium 140 Potassium 4.3 Chloride 106 Carbon Dioxide 29 Anion Gap 6 L BUN 13 Creatinine 1.1 Creat Clearance w eGFR > 60 Random Glucose 78 Calcium 8.4 L Total Bilirubin 0.2 AST 8 L ALT 13 Alkaline Phosphatase 48 Total Protein 6.5 Albumin 3.1 L Valproic Acid RPR Titer Nonreactive 12/13/18 07:00 WBC RBC Hgb Hct MCV MCH MCHC RDW Plt Count MPV Sodium Potassium Chloride Carbon Dioxide Anion Gap BUN Creatinine Creat Clearance w eGFR Random Glucose Calcium Total Bilirubin AST ALT Alkaline Phosphatase Total Protein Albumin Valproic Acid 4.2 L RPR Titer LABS NOTED. Assessment: 12/14/18 15:03 WITHDRAWAL SYMPTOMS. Plan: CONTINUE DETOX.
[2018-12-14] MEDS ORDERED: chlordiazePOXIDE HCL 10 MG CAPSULE PO PRN (21:00)
[2018-12-14] MEDS: chlordiazePOXIDE HCL 10 MG CAPSULE PO SCH (22:14)
[2018-12-14] MEDS: THIAMINE HCL 100 MG TABLET (FP) PO SCH (22:14)
[2018-12-15] MEDS: chlordiazePOXIDE HCL 10 MG CAPSULE PO SCH ×3 (05:47→22:12)
--- NOTE | 2018-12-15 09:06 | PN ---
S Progress Note (SOAP) Subjective: alert,irritable,anxious,interrupted sleep Objective: 12/15/18 09:05 Vital Signs Temperature 97.9 F 12/15/18 07:48 Pulse Rate 54 L 12/15/18 07:48 Respiratory Rate 18 12/15/18 07:48 Blood Pressure 130/82 12/15/18 07:48 O2 Sat by Pulse Oximetry (%) Assessment: 12/15/18 09:05 withdrawal symptom Plan: continue detox,discharge in am
[2018-12-15] MEDS: PRENATAL VITAMINS W/ FOLIC ACID TABLET (FP) PO SCH (10:07)
[2018-12-15] MEDS: CITALOPRAM HYDROBROMIDE 20 MG TABLET (FP) PO SCH (10:07)
[2018-12-15] MEDS: DIVALPROEX SODIUM 500 MG TABLET E.C. PO SCH ×2 (10:07→22:12)
[2018-12-15] MEDS: MENTHOL/PHENOL 1 EACH UD MM PRN (13:44)
[2018-12-15] MEDS: THIAMINE HCL 100 MG TABLET (FP) PO SCH (22:12)
--- NOTE | 2018-12-16 09:23 | DS ---
[facility] Detox Discharge Summary Admission Date: 12/12/18 Discharge Date: 12/16/18 - History Present History: Alcohol Dependence, Cocaine Dependence - Physical Exam Results Vital Signs: Vital Signs Temperature 97.7 F 12/16/18 06:00 Pulse Rate 54 L 12/16/18 06:00 Respiratory Rate 18 12/16/18 06:00 Blood Pressure 116/74 12/16/18 06:00 O2 Sat by Pulse Oximetry (%) - Treatment Hospital Course: Detox Protocol Followed, Detoxed Safely, Responded well, Discharged Condition Good, Rehab Referral Accepted - Medication Discharge Medications: Ambulatory Orders Citalopram Hydrobromide [Celexa -] 20 mg PO DAILY 10/15/18 Divalproex Sodium [Depakote] 500 mg PO HS 10/15/18 - Diagnosis (1) Alcohol dependence with uncomplicated withdrawal Current Visit: Yes Status: Acute (2) Cannabis dependence, uncomplicated Current Visit: Yes Status: Chronic (3) Cocaine dependence, uncomplicated Current Visit: Yes Status: Chronic (4) Bipolar II disorder Current Visit: Yes Status: Chronic (5) Bipolar disorder Current Visit: Yes Status: Chronic (6) PPD positive Current Visit: Yes Status: Resolved (7) Dehydration Current Visit: No Status: Acute (8) Substance induced mood disorder Current Visit: No Status: Acute (9) Anxiety Current Visit: No Status: Chronic (10) Bipolar II disorder Current Visit: No Status: Chronic (11) Bipolar disorder Current Visit: No Status: Chronic (12) Depression Current Visit: No Status: Chronic (13) Xanax use disorder, mild Current Visit: No Status: Suspected - AMA Did Patient Leave Against Medical Advice: No (referred to outpatient rehab)
[2018-12-16 09:38] VITALS: BP 113/75; PULSE 70; TEMP 99.7
[2018-12-16] MEDS: DIVALPROEX SODIUM 500 MG TABLET E.C. PO SCH (11:15)
[2018-12-16] MEDS: CITALOPRAM HYDROBROMIDE 20 MG TABLET (FP) PO SCH (11:15)
[2018-12-16] MEDS: PRENATAL VITAMINS W/ FOLIC ACID TABLET (FP) PO SCH (11:15)
== END 2018-12-16 10:12 | disposition home or self-care (01) | DRG 897 ==
LOC: YASAS 13:31 → Y6N 17:06
PROVIDERS: ADMIT Surgery; ATTEND Surgery
PROC: HZ2ZZZZ Detoxification Services for Substance Abuse Treatment (ICD-10-PCS; principal; 2018-12-12)
DX: F10.230 Alcohol dependence with withdrawal, uncomplicated (principal); F14.20 Cocaine dependence, uncomplicated; F31.81 Bipolar II disorder; F12.20 Cannabis dependence, uncomplicated; F13.10 Sedative, hypnotic or anxiolytic abuse, uncomplicated; F19.24 Other psychoactive substance dependence with psychoactive substance-induced mood disorder; F32.9 Major depressive disorder, single episode, unspecified; F41.9 Anxiety disorder, unspecified; R76.11 Nonspecific reaction to tuberculin skin test without active tuberculosis
CPT/HCPCS: 36415; 80053; 80164; 85027; 86593

== ENCOUNTER 2019-01-31 08:08 | Inpatient (IN) | payer OTHER ==
[2019-01-31 08:46] VITALS: BMI 23.4
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
[2019-01-31] MEDS ORDERED: MAGNESIUM CITRATE 300 ML BOTTLE PO PRN (09:13)
[2019-01-31] MEDS ORDERED: MENTHOL/PHENOL 1 EACH UD MM PRN (09:13)
[2019-01-31] MEDS ORDERED: MAG HYDROX/AL HYDROX/SIMETH 30 ML UNIT-DOSE CUP PO PRN (09:13)
[2019-01-31] MEDS ORDERED: BISMUTH SUBSALICYLATE 262 MG/15 ML BTL PO PRN (09:13)
[2019-01-31] MEDS ORDERED: METHOCARBAMOL 500 MG TABLET PO PRN (09:13)
[2019-01-31] MEDS ORDERED: ACETAMINOPHEN 325 MG TABLET (FP) PO PRN ×2 (09:13)
[2019-01-31] MEDS ORDERED: MAGNESIUM HYDROX 2400MG/30ML ORAL SUSPENSION 30 ML CUP PO PRN (09:13)
[2019-01-31] MEDS ORDERED: MELATONIN 5 MG TABLETS PO PRN (09:13)
[2019-01-31] MEDS ORDERED: chlordiazePOXIDE HCL 25 MG CAPSULE PO PRN (09:13)
[2019-01-31] MEDS ORDERED: hydrOXYzine PAMOATE 25 MG CAPSULE (FP) PO PRN (09:13)
[2019-01-31] MEDS ORDERED: IBUPROFEN 400 MG TABLET (FP) PO PRN (09:13)
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
[2019-01-31] MEDS: PRENATAL VITAMINS W/ FOLIC ACID TABLET (FP) PO SCH (10:29)
[2019-01-31] MEDS: chlordiazePOXIDE HCL 25 MG CAPSULE PO SCH ×3 (10:29→22:47)
[2019-01-31 11:39] LABS: HEMOGLOBIN 14.3 GM/dL (11.7-16.9); MCH 27.1 pg (25.7-33.7); MCHC 32.5 g/dl (32.0-35.9); MEAN CELL VOLUME 83.3 fl (80-96); MEAN PLT VOLUME 8.4 fl (7.5-11.1); PLATELET COUNT 282 K/MM3 (134-434); RBC 5.29 M/mm3 (4.00-5.60); RDW 14.4 % (11.9-15.9); WHITE BLOOD COUNT 5.8 K/mm3 (4.0-10.0)
[2019-01-31 11:48] LABS: ALBUMIN 3.6 g/dl (3.4-5.0); ALK PHOS 51 U/L (45-117); ANION GAP 6 MMOL/L (8-16); BILIRUBIN,TOTAL 0.4 mg/dL (0.2-1); BLOOD UREA NITROGEN 11 mg/dL (7-18); CALCIUM 8.8 mg/dL (8.5-10.1); CHLORIDE 104 mmol/L (98-107); CO2 29 mmol/L (21-32); GLUCOSE,RANDOM 71 mg/dL (74-106); SGOT/AST 11 U/L (15-37); SGPT/ALT 17 U/L (13-61); SODIUM 139 mmol/L (136-145)
[2019-01-31 14:47] LABS: PH,URINE 5.5 (5.0-8.0); URINE APPEARANCE CLEAR; URINE BILIRUBIN NEGATIVE (NEGATIVE); URINE COLOR DK YELLOW; URINE GLUCOSE (UA) NEGATIVE (NEGATIVE); URINE KETONE TRACE (NEGATIVE); URINE LEUK ESTERASE NEGATIVE (NEGATIVE); URINE NITRITE NEGATIVE (NEGATIVE); URINE PROTEIN TRACE (NEGATIVE); URINE UROBILINOGEN 0.2 mg/dL (0.2-1.0)
[2019-01-31] MEDS: THIAMINE HCL 100 MG TABLET (FP) PO SCH (22:47)
[2019-02-01] MEDS: chlordiazePOXIDE HCL 25 MG CAPSULE PO SCH ×4 (06:23→22:34)
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
[2019-02-01] MEDS: PRENATAL VITAMINS W/ FOLIC ACID TABLET (FP) PO SCH (10:31)
--- NOTE | 2019-02-01 14:33 | PN ---
S CIWA - CIWA Score Nausea/Vomitin Muscle Tremors: None Anxiety: 4-Mod. Anxious/Guarded Agitation: 0-Normal Activity Paroxysmal Sweats: No Perspiration Orientation: 0-Oriented Tacttile Disturbances: 0-None Auditory Disturbances: 2-Mild Harshness/Frighten Visual Disturbances: 3-Moderate Sensitivity Headache: 0-None Present CIWA-Ar Total Score: 12 [facility] Progress Note (SOAP) Subjective: Interrupted Sleep, Anxious, Stomach Cramping, Nausea. Objective: PATIENT A & O X 3. IN NO ACUTE DISTRESS. 02/01/19 14:31 Vital Signs Temperature 97.9 F 02/01/19 13:05 Pulse Rate 72 02/01/19 13:05 Respiratory Rate 18 02/01/19 13:05 Blood Pressure 119/74 02/01/19 13:05 O2 Sat by Pulse Oximetry (%) Laboratory Tests 01/31/19 01/31/19 01/31/19 09:10 09:10 09:10 WBC 5.8 RBC 5.29 Hgb 14.3 Hct 44.0 MCV 83.3 MCH 27.1 MCHC 32.5 RDW 14.4 Plt Count 282 MPV 8.4 Sodium 139 Potassium 4.0 Chloride 104 Carbon Dioxide 29 Anion Gap 6 L BUN 11 Creatinine 1.0 Creat Clearance w eGFR 78.16 Random Glucose 71 L Calcium 8.8 Total Bilirubin 0.4 AST 11 L ALT 17 Alkaline Phosphatase 51 Total Protein 7.0 Albumin 3.6 Urine Color Urine Appearance Urine pH Ur Specific [place] Urine Protein Urine Glucose (UA) Urine Ketones Urine Blood Urine Nitrite Urine Bilirubin Urine Urobilinogen Ur Leukocyte Esterase RPR Titer Nonreactive 01/31/19 11:20 WBC RBC Hgb Hct MCV MCH MCHC RDW Plt Count MPV Sodium Potassium Chloride Carbon Dioxide Anion Gap BUN Creatinine Creat Clearance w eGFR Random Glucose Calcium Total Bilirubin AST ALT Alkaline Phosphatase Total Protein Albumin Urine Color Dk yellow Urine Appearance Clear Urine pH 5.5 Ur Specific [place] 1.038 H Urine Protein Trace Urine Glucose (UA) Negative Urine Ketones Trace H Urine Blood Negative Urine Nitrite Negative Urine Bilirubin Negative Urine Urobilinogen 0.2 Ur Leukocyte Esterase Negative RPR Titer LABS NOTED. Assessment: 02/01/19 14:31 WITHDRAWAL SYMPTOMS. Plan: CONTINUE DETOX.
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
[2019-02-01] MEDS: THIAMINE HCL 100 MG TABLET (FP) PO SCH (22:34)
[2019-02-02] MEDS: chlordiazePOXIDE HCL 25 MG CAPSULE PO SCH (06:10)
[2019-02-02] MEDS: chlordiazePOXIDE HCL 10 MG CAPSULE PO SCH ×3 (10:13→22:22)
[2019-02-02] MEDS: PRENATAL VITAMINS W/ FOLIC ACID TABLET (FP) PO SCH (10:13)
[2019-02-02] MEDS ORDERED: chlordiazePOXIDE HCL 10 MG CAPSULE PO PRN (11:00)
--- NOTE | 2019-02-02 11:23 | PN ---
[facility] CIWA - CIWA Score Nausea/Vomitin-Mild Nausea/No Vomiting Muscle Tremors: 2 Anxiety: 3 Agitation: 2 Paroxysmal Sweats: 1-Minimal Palms Moist Orientation: 0-Oriented Tacttile Disturbances: 0-None Auditory Disturbances: 0-None Visual Disturbances: 0-None Headache: 0-None Present CIWA-Ar Total Score: 9 S Progress Note (SOAP) Subjective: tolerate food and fluid well denies pain at this time ambulate from bed to toilet steady gait denies shortness of breathe denies dizziness no bruise noted at this time skin intact no redness no swell able to dress self without difficulty Objective: 02/02/19 11:22 Vital Signs Temperature 96.9 F L 02/02/19 09:06 Pulse Rate 63 02/02/19 09:06 Respiratory Rate 18 02/02/19 09:06 Blood Pressure 120/79 02/02/19 09:06 O2 Sat by Pulse Oximetry (%) Laboratory Last Values WBC 5.8 K/mm3 (4.0-10.0) 01/31/19 09:10 RBC 5.29 M/mm3 (4.00-5.60) 01/31/19 09:10 Hgb 14.3 GM/dL (11.7-16.9) 01/31/19 09:10 Hct 44.0 % (35.4-49) 01/31/19 09:10 MCV 83.3 fl (80-96) 01/31/19 09:10 MCH 27.1 pg (25.7-33.7) 01/31/19 09:10 MCHC 32.5 g/dl (32.0-35.9) 01/31/19 09:10 RDW 14.4 % (11.9-15.9) 01/31/19 09:10 Plt Count 282 K/MM3 (134-434) 01/31/19 09:10 MPV 8.4 fl (7.5-11.1) 01/31/19 09:10 Sodium 139 mmol/L (136-145) 01/31/19 09:10 Potassium 4.0 mmol/L (3.5-5.1) 01/31/19 09:10 Chloride 104 mmol/L (98-107) 01/31/19 09:10 Carbon Dioxide 29 mmol/L (21-32) 01/31/19 09:10 Anion Gap 6 MMOL/L (8-16) L 01/31/19 09:10 BUN 11 mg/dL (7-18) 01/31/19 09:10 Creatinine 1.0 mg/dL (0.55-1.3) 01/31/19 09:10 Creat Clearance w eGFR 78.16 (>60) 01/31/19 09:10 Random Glucose 71 mg/dL (74-106) L 01/31/19 09:10 Calcium 8.8 mg/dL (8.5-10.1) 01/31/19 09:10 Total Bilirubin 0.4 mg/dL (0.2-1) 01/31/19 09:10 AST 11 U/L (15-37) L 01/31/19 09:10 ALT 17 U/L (13-61) 01/31/19 09:10 Alkaline Phosphatase 51 U/L (45-117) 01/31/19 09:10 Total Protein 7.0 g/dl (6.4-8.2) 01/31/19 09:10 Albumin 3.6 g/dl (3.4-5.0) 01/31/19 09:10 Urine Color Dk yellow 01/31/19 11:20 Urine Appearance Clear 01/31/19 11:20 Urine pH 5.5 (5.0-8.0) 01/31/19 11:20 Ur Specific [place] 1.038 (1.010-1.035) H 01/31/19 11:20 Urine Protein Trace (NEGATIVE) 01/31/19 11:20 Urine Glucose (UA) Negative (NEGATIVE) 01/31/19 11:20 Urine Ketones Trace (NEGATIVE) H 01/31/19 11:20 Urine Blood Negative (NEGATIVE) 01/31/19 11:20 Urine Nitrite Negative (NEGATIVE) 01/31/19 11:20 Urine Bilirubin Negative (NEGATIVE) 01/31/19 11:20 Urine Urobilinogen 0.2 mg/dL (0.2-1.0) 01/31/19 11:20 Ur Leukocyte Esterase Negative (NEGATIVE) 01/31/19 11:20 RPR Titer Nonreactive (NONREACTIVE) 01/31/19 09:10 lab noted Assessment: 02/02/19 11:23 alcohol withdrawal sx Plan: continue detox
[2019-02-02] MEDS: THIAMINE HCL 100 MG TABLET (FP) PO SCH (22:22)
[2019-02-03] MEDS: chlordiazePOXIDE HCL 10 MG CAPSULE PO SCH (07:40)
[2019-02-03 09:13] VITALS: BP 123/78; PULSE 65; TEMP 98.2
--- NOTE | 2019-02-03 09:27 | DS ---
[facility] Detox Discharge Summary Admission Date: 01/31/19 - History Present History: Alcohol Dependence, Cocaine Dependence Pertinent Past History: Pt admitted for detox from alcohol. Pt did well. Was supposed to leave tomorrow - but has to leave today after lunch to [facility] to be present for a housing dispute issue. Pt states did well here. Has PCP at [facility] and will get all meds from this PCP on Wednesday when he has a f/u appt. - Physical Exam Results Vital Signs: Vital Signs Temperature 98.2 F 02/03/19 09:13 Pulse Rate 65 02/03/19 09:13 Respiratory Rate 18 02/03/19 09:13 Blood Pressure 123/78 02/03/19 09:13 O2 Sat by Pulse Oximetry (%) - Treatment Hospital Course: Detox Protocol Followed, Detoxed Safely, Responded well, Discharged Condition Good - Medication Discharge Medications: Ambulatory Orders Citalopram Hydrobromide [Celexa -] 20 mg PO DAILY 10/15/18 Divalproex Sodium [Depakote] 500 mg PO BID 10/15/18 - AMA Did Patient Leave Against Medical Advice: No
[2019-02-03] MEDS: PRENATAL VITAMINS W/ FOLIC ACID TABLET (FP) PO SCH (10:22)
--- NOTE | 2019-02-03 10:59 | EKG ---
Test Reason : Blood Pressure : / mmHG Vent. Rate : 065 BPM Atrial Rate : 065 BPM P-R Int : 190 ms QRS Dur : 088 ms QT Int : 438 ms P-R-T Axes : 071 072 058 degrees QTc Int : 455 ms NORMAL SINUS RHYTHM MINIMAL VOLTAGE CRITERIA FOR LVH, MAY BE NORMAL VARIANT WHEN COMPARED WITH ECG OF 18-AUG-2018 19:37, NO SIGNIFICANT CHANGE WAS FOUND Confirmed by JW CASTRO, PATTI ([id number]) on 02/03/2019 10:59:13 AM Referred By: Confirmed By:PATTI ESCALERA MD
[2019-02-03] MEDS ORDERED: chlordiazePOXIDE HCL 10 MG CAPSULE PO SCH (11:00)
== END 2019-02-03 11:18 | disposition home or self-care (01) | DRG 897 ==
LOC: YASAS 08:08 → Y6N 09:19 → Y3N 02-01 18:33
PROVIDERS: ADMIT Surgery; ATTEND Surgery
PROC: HZ2ZZZZ Detoxification Services for Substance Abuse Treatment (ICD-10-PCS; principal; 2019-01-31)
DX: F10.230 Alcohol dependence with withdrawal, uncomplicated (principal); F14.20 Cocaine dependence, uncomplicated; F19.282 Other psychoactive substance dependence with psychoactive substance-induced sleep disorder; F31.81 Bipolar II disorder; F12.20 Cannabis dependence, uncomplicated; F19.24 Other psychoactive substance dependence with psychoactive substance-induced mood disorder; E86.0 Dehydration; R76.11 Nonspecific reaction to tuberculin skin test without active tuberculosis; S29.8XXA Other specified injuries of thorax, initial encounter; R07.9 Chest pain, unspecified; Y04.2XXA Assault by strike against or bumped into by another person, initial encounter; Y93.89 Activity, other specified; Y92.238 Other place in hospital as the place of occurrence of the external cause; Y99.8 Other external cause status; Y07.59 Other non-family member, perpetrator of maltreatment and neglect
CPT/HCPCS: 36415; 80053; 81003; 85027; 86593; 93005; 93010

== ENCOUNTER 2019-04-10 10:23 | Inpatient (IN) | payer OTHER ==
[2019-04-10 11:18] VITALS: BMI 24.0
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
[2019-04-10] MEDS ORDERED: BISMUTH SUBSALICYLATE 524 MG/30 ML UD PO PRN (14:35)
[2019-04-10] MEDS ORDERED: MAGNESIUM HYDROX 2400MG/30ML ORAL SUSPENSION 30 ML CUP PO PRN (14:35)
[2019-04-10] MEDS ORDERED: MENTHOL/PHENOL 1 EACH UD MM PRN (14:35)
[2019-04-10] MEDS ORDERED: MELATONIN 5 MG TABLETS PO PRN (14:35)
[2019-04-10] MEDS ORDERED: ACETAMINOPHEN 325 MG TABLET (FP) PO PRN ×2 (14:35)
[2019-04-10] MEDS ORDERED: METHOCARBAMOL 500 MG TABLET PO PRN (14:35)
[2019-04-10] MEDS ORDERED: MAGNESIUM CITRATE 300 ML BOTTLE PO PRN (14:35)
[2019-04-10] MEDS ORDERED: chlordiazePOXIDE HCL 25 MG CAPSULE PO PRN (14:35)
[2019-04-10] MEDS ORDERED: hydrOXYzine HCL 25 MG TABLET (FP) PO PRN (14:35)
[2019-04-10] MEDS ORDERED: IBUPROFEN 400 MG TABLET (FP) PO PRN (14:35)
[2019-04-10] MEDS ORDERED: MAG HYDROX/AL HYDROX/SIMETH 30 ML UNIT-DOSE CUP PO PRN (14:35)
[2019-04-10 16:56] LABS: HEMATOCRIT 43.4 % (35.4-49); HEMOGLOBIN 14.3 GM/dL (11.7-16.9); MCH 26.7 pg (25.7-33.7); MCHC 32.8 g/dl (32.0-35.9); MEAN CELL VOLUME 81.2 fl (80-96); MEAN PLT VOLUME 8.7 fl (7.5-11.1); PLATELET COUNT 286 K/MM3 (134-434); RBC 5.35 M/mm3 (4.00-5.60); RDW 14.8 % (11.9-15.9); WHITE BLOOD COUNT 5.3 K/mm3 (4.0-10.0)
[2019-04-10 17:00] LABS: ALBUMIN 3.5 g/dl (3.4-5.0); BILIRUBIN,TOTAL 0.2 mg/dL (0.2-1); BLOOD UREA NITROGEN 19.8 mg/dL (7-18); CALCIUM 8.5 mg/dL (8.5-10.1); POTASSIUM 4.6 mmol/L (3.5-5.1); TOT PROT 7.2 g/dl (6.4-8.2)
[2019-04-10] MEDS: chlordiazePOXIDE HCL 25 MG CAPSULE PO SCH ×2 (17:37→22:10)
[2019-04-10] MEDS: THIAMINE HCL 100 MG TABLET (FP) PO SCH (22:10)
[2019-04-11] MEDS: chlordiazePOXIDE HCL 25 MG CAPSULE PO SCH ×4 (06:44→22:58)
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
[2019-04-11] MEDS: PRENATAL VITAMINS W/ FOLIC ACID TABLET (FP) PO SCH (10:51)
--- NOTE | 2019-04-11 12:24 | PN ---
[facility] CIWA - CIWA Score Nausea/Vomitin-Mild Nausea/No Vomiting Muscle Tremors: 2 Anxiety: 3 Agitation: 2 Paroxysmal Sweats: 1-Minimal Palms Moist Orientation: 1-Uncertain about Date Tacttile Disturbances: 0-None Auditory Disturbances: 0-None Visual Disturbances: 0-None Headache: 2-Mild CIWA-Ar Total Score: 12 S Progress Note (SOAP) Subjective: doing fine with librium protocol less tremor mild anxiety resting on bed encourage personal hygiene Objective: 04/11/19 12:26 Vital Signs Temperature 96.2 F L 04/11/19 09:04 Pulse Rate 71 04/11/19 09:04 Respiratory Rate 18 04/11/19 09:04 Blood Pressure 113/77 04/11/19 09:04 O2 Sat by Pulse Oximetry (%) Laboratory Last Values WBC 5.3 K/mm3 (4.0-10.0) 04/10/19 14:40 RBC 5.35 M/mm3 (4.00-5.60) 04/10/19 14:40 Hgb 14.3 GM/dL (11.7-16.9) 04/10/19 14:40 Hct 43.4 % (35.4-49) 04/10/19 14:40 MCV 81.2 fl (80-96) 04/10/19 14:40 MCH 26.7 pg (25.7-33.7) 04/10/19 14:40 MCHC 32.8 g/dl (32.0-35.9) 04/10/19 14:40 RDW 14.8 % (11.9-15.9) 04/10/19 14:40 Plt Count 286 K/MM3 (134-434) 04/10/19 14:40 MPV 8.7 fl (7.5-11.1) 04/10/19 14:40 Sodium 139 mmol/L (136-145) 04/10/19 14:40 Potassium 4.6 mmol/L (3.5-5.1) 04/10/19 14:40 Chloride 104 mmol/L (98-107) 04/10/19 14:40 Carbon Dioxide 31 mmol/L (21-32) 04/10/19 14:40 Anion Gap 4 MMOL/L (8-16) L 04/10/19 14:40 BUN 19.8 mg/dL (7-18) H 04/10/19 14:40 Creatinine 1.0 mg/dL (0.55-1.3) 04/10/19 14:40 Est GFR (CKD-EPI)AfAm 99.15 04/10/19 14:40 Est GFR (CKD-EPI)NonAf 85.55 04/10/19 14:40 Random Glucose 93 mg/dL (74-106) 04/10/19 14:40 Calcium 8.5 mg/dL (8.5-10.1) 04/10/19 14:40 Total Bilirubin 0.2 mg/dL (0.2-1) 04/10/19 14:40 AST 18 U/L (15-37) 04/10/19 14:40 ALT 26 U/L (13-61) 04/10/19 14:40 Alkaline Phosphatase 71 U/L (45-117) 04/10/19 14:40 Total Protein 7.2 g/dl (6.4-8.2) 04/10/19 14:40 Albumin 3.5 g/dl (3.4-5.0) 04/10/19 14:40 RPR Titer Nonreactive (NONREACTIVE) 04/10/19 14:40 lab noted Assessment: 04/11/19 12:26 alcohol withdrawal sx Plan: continue alcohol detox
[2019-04-11] MEDS: THIAMINE HCL 100 MG TABLET (FP) PO SCH (22:57)
[2019-04-12] MEDS: chlordiazePOXIDE HCL 25 MG CAPSULE PO SCH ×4 (06:13→22:19)
[2019-04-12] MEDS: PRENATAL VITAMINS W/ FOLIC ACID TABLET (FP) PO SCH (10:29)
--- NOTE | 2019-04-12 11:42 | PN ---
[facility] CIWA - CIWA Score Nausea/Vomitin-Mild Nausea/No Vomiting Muscle Tremors: 2 Anxiety: 3 Agitation: 3 Paroxysmal Sweats: 1-Minimal Palms Moist Orientation: 0-Oriented Tacttile Disturbances: 1-Very Mild Itch/Numbness Auditory Disturbances: 0-None Visual Disturbances: 0-None Headache: 0-None Present CIWA-Ar Total Score: 11 S Progress Note (SOAP) Subjective: irritable aggressive toward peers and staff had verbal altercation with peer earlier today team approach that patient agrees to have written agreement on cooperation with unit rules and respects others and focuses on recovery Objective: 04/12/19 11:41 Vital Signs Temperature 96.5 F L 04/12/19 09:25 Pulse Rate 69 04/12/19 09:25 Respiratory Rate 18 04/12/19 09:25 Blood Pressure 115/61 04/12/19 09:25 O2 Sat by Pulse Oximetry (%) Laboratory Last Values WBC 5.3 K/mm3 (4.0-10.0) 04/10/19 14:40 RBC 5.35 M/mm3 (4.00-5.60) 04/10/19 14:40 Hgb 14.3 GM/dL (11.7-16.9) 04/10/19 14:40 Hct 43.4 % (35.4-49) 04/10/19 14:40 MCV 81.2 fl (80-96) 04/10/19 14:40 MCH 26.7 pg (25.7-33.7) 04/10/19 14:40 MCHC 32.8 g/dl (32.0-35.9) 04/10/19 14:40 RDW 14.8 % (11.9-15.9) 04/10/19 14:40 Plt Count 286 K/MM3 (134-434) 04/10/19 14:40 MPV 8.7 fl (7.5-11.1) 04/10/19 14:40 Sodium 139 mmol/L (136-145) 04/10/19 14:40 Potassium 4.6 mmol/L (3.5-5.1) 04/10/19 14:40 Chloride 104 mmol/L (98-107) 04/10/19 14:40 Carbon Dioxide 31 mmol/L (21-32) 04/10/19 14:40 Anion Gap 4 MMOL/L (8-16) L 04/10/19 14:40 BUN 19.8 mg/dL (7-18) H 04/10/19 14:40 Creatinine 1.0 mg/dL (0.55-1.3) 04/10/19 14:40 Est GFR (CKD-EPI)AfAm 99.15 04/10/19 14:40 Est GFR (CKD-EPI)NonAf 85.55 04/10/19 14:40 Random Glucose 93 mg/dL (74-106) 04/10/19 14:40 Calcium 8.5 mg/dL (8.5-10.1) 04/10/19 14:40 Total Bilirubin 0.2 mg/dL (0.2-1) 04/10/19 14:40 AST 18 U/L (15-37) 04/10/19 14:40 ALT 26 U/L (13-61) 04/10/19 14:40 Alkaline Phosphatase 71 U/L (45-117) 04/10/19 14:40 Total Protein 7.2 g/dl (6.4-8.2) 04/10/19 14:40 Albumin 3.5 g/dl (3.4-5.0) 04/10/19 14:40 RPR Titer Nonreactive (NONREACTIVE) 04/10/19 14:40 lab noted Assessment: 04/12/19 11:41 alcohol withdrawal sx Plan: continue alcohol detox
[2019-04-12] MEDS: THIAMINE HCL 100 MG TABLET (FP) PO SCH (22:19)
[2019-04-13] MEDS ORDERED: chlordiazePOXIDE HCL 10 MG CAPSULE PO PRN
[2019-04-13] MEDS: chlordiazePOXIDE HCL 10 MG CAPSULE PO SCH ×4 (05:48→22:04)
[2019-04-13] MEDS: PRENATAL VITAMINS W/ FOLIC ACID TABLET (FP) PO SCH (10:45)
--- NOTE | 2019-04-13 13:58 | PN ---
S CIWA - CIWA Score Nausea/Vomitin-Mild Nausea/No Vomiting Muscle Tremors: 2 Anxiety: 2 Agitation: 2 Paroxysmal Sweats: 1-Minimal Palms Moist Orientation: 0-Oriented Tacttile Disturbances: 0-None Auditory Disturbances: 0-None Visual Disturbances: 0-None Headache: 0-None Present CIWA-Ar Total Score: 8 BHS Progress Note (SOAP) Subjective: 53 years old male admitted on 04/10/19 for alcohol withdrawal sx medical history positive ppd treated patient feels better prefering to go to [facility] for alcohol recovery Objective: 04/13/19 14:11 Vital Signs Temperature 96.3 F L 04/13/19 13:27 Pulse Rate 78 04/13/19 13:27 Respiratory Rate 18 04/13/19 13:27 Blood Pressure 113/70 04/13/19 13:27 O2 Sat by Pulse Oximetry (%) Laboratory Last Values WBC 5.3 K/mm3 (4.0-10.0) 04/10/19 14:40 RBC 5.35 M/mm3 (4.00-5.60) 04/10/19 14:40 Hgb 14.3 GM/dL (11.7-16.9) 04/10/19 14:40 Hct 43.4 % (35.4-49) 04/10/19 14:40 MCV 81.2 fl (80-96) 04/10/19 14:40 MCH 26.7 pg (25.7-33.7) 04/10/19 14:40 MCHC 32.8 g/dl (32.0-35.9) 04/10/19 14:40 RDW 14.8 % (11.9-15.9) 04/10/19 14:40 Plt Count 286 K/MM3 (134-434) 04/10/19 14:40 MPV 8.7 fl (7.5-11.1) 04/10/19 14:40 Sodium 139 mmol/L (136-145) 04/10/19 14:40 Potassium 4.6 mmol/L (3.5-5.1) 04/10/19 14:40 Chloride 104 mmol/L (98-107) 04/10/19 14:40 Carbon Dioxide 31 mmol/L (21-32) 04/10/19 14:40 Anion Gap 4 MMOL/L (8-16) L 04/10/19 14:40 BUN 19.8 mg/dL (7-18) H 04/10/19 14:40 Creatinine 1.0 mg/dL (0.55-1.3) 04/10/19 14:40 Est GFR (CKD-EPI)AfAm 99.15 04/10/19 14:40 Est GFR (CKD-EPI)NonAf 85.55 04/10/19 14:40 Random Glucose 93 mg/dL (74-106) 04/10/19 14:40 Calcium 8.5 mg/dL (8.5-10.1) 04/10/19 14:40 Total Bilirubin 0.2 mg/dL (0.2-1) 04/10/19 14:40 AST 18 U/L (15-37) 04/10/19 14:40 ALT 26 U/L (13-61) 04/10/19 14:40 Alkaline Phosphatase 71 U/L (45-117) 04/10/19 14:40 Total Protein 7.2 g/dl (6.4-8.2) 04/10/19 14:40 Albumin 3.5 g/dl (3.4-5.0) 04/10/19 14:40 RPR Titer Nonreactive (NONREACTIVE) 04/10/19 14:40 lab noted Assessment: 04/13/19 14:12 alcohol withdrawal sx Plan: continue alcohol detox
[2019-04-13] MEDS: THIAMINE HCL 100 MG TABLET (FP) PO SCH (22:04)
[2019-04-14] MEDS ORDERED: chlordiazePOXIDE HCL 10 MG CAPSULE PO SCH (05:00)
[2019-04-14 06:41] VITALS: BP 105/66; PULSE 59; TEMP 97.7
[2019-04-14] MEDS: PRENATAL VITAMINS W/ FOLIC ACID TABLET (FP) PO SCH (09:08)
--- NOTE | 2019-04-14 17:13 | DS ---
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 PRE-DISCHARGE MEDICAL ASSESSMENT UNABLE TO BE DONE. PER CLINICAL EDUCATION CONSULTANT Vanessa SAGASTUME, PATIENT REFERRED TO [facility] ([place], [place]) FOR AFTERCARE. Pertinent Past History: History Of Positive PPD, Weight Loss, Bipolar II Disorder, Dehydration, History Of Skin Graft, Depression, History Of Skin Graft. - Physical Exam Results Vital Signs: Vital Signs Temperature 97.7 F 04/14/19 06:00 Pulse Rate 59 L 04/14/19 06:00 Respiratory Rate 18 04/14/19 06:00 Blood Pressure 105/66 04/14/19 06:00 O2 Sat by Pulse Oximetry (%) Pertinent Admission Physical Exam Findings: WITHDRAWAL SYMPTOMS. Laboratory Tests 04/10/19 04/10/19 04/10/19 14:40 14:40 14:40 WBC 5.3 RBC 5.35 Hgb 14.3 Hct 43.4 MCV 81.2 MCH 26.7 MCHC 32.8 RDW 14.8 Plt Count 286 MPV 8.7 Sodium 139 Potassium 4.6 Chloride 104 Carbon Dioxide 31 Anion Gap 4 L BUN 19.8 H Creatinine 1.0 Est GFR (CKD-EPI)AfAm 99.15 Est GFR (CKD-EPI)NonAf 85.55 Random Glucose 93 Calcium 8.5 Total Bilirubin 0.2 AST 18 ALT 26 Alkaline Phosphatase 71 Total Protein 7.2 Albumin 3.5 RPR Titer Nonreactive LABS NOTED. - Treatment Hospital Course: Detox Protocol Followed, Detoxed Safely, Responded well, Discharged Condition Good Patient has Accepted a Rehab Referral to: PT. REFERRED TO [facility] ([place], [place]). - Medication Discharge Medications: Ambulatory Orders Citalopram Hydrobromide [Celexa -] 20 mg PO DAILY 10/15/18 Divalproex Sodium [Depakote] 500 mg PO BID 10/15/18 - Diagnosis (1) Alcohol dependence with uncomplicated withdrawal Status: Acute (2) Cannabis dependence, uncomplicated Status: Acute (3) Cocaine dependence, uncomplicated Status: Acute (4) Dehydration Status: Acute (5) History of skin graft Status: Acute (6) Substance induced mood disorder Status: Acute (7) Bipolar II disorder Status: Chronic (8) PPD positive Status: Resolved - AMA Did Patient Leave Against Medical Advice: No
[2019-04-15] MEDS ORDERED: chlordiazePOXIDE HCL 10 MG CAPSULE PO ONE (05:00)
== END 2019-04-14 09:00 | disposition home or self-care (01) | DRG 897 ==
LOC: YASAS 10:23 → Y3N 14:40
PROVIDERS: ADMIT Surgery; ATTEND Surgery
PROC: HZ2ZZZZ Detoxification Services for Substance Abuse Treatment (ICD-10-PCS; principal; 2019-04-10)
DX: F10.230 Alcohol dependence with withdrawal, uncomplicated (principal); F14.20 Cocaine dependence, uncomplicated; F31.81 Bipolar II disorder; F12.20 Cannabis dependence, uncomplicated; F19.24 Other psychoactive substance dependence with psychoactive substance-induced mood disorder; F32.9 Major depressive disorder, single episode, unspecified; E86.0 Dehydration; R63.4 Abnormal weight loss; Z68.24 Body mass index [BMI] 24.0-24.9, adult; R76.11 Nonspecific reaction to tuberculin skin test without active tuberculosis; Z94.5 Skin transplant status
CPT/HCPCS: 36415; 71046-TC-FY; 80053; 85027; 86593

== ENCOUNTER 2019-07-10 10:45 | Inpatient (IN) | payer OTHER ==
[2019-07-10 11:26] VITALS: BMI 27.8
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
[2019-07-10] MEDS ORDERED: MELATONIN 5 MG TABLETS PO PRN (11:42)
[2019-07-10] MEDS ORDERED: MAG HYDROX/AL HYDROX/SIMETH 30 ML UNIT-DOSE CUP PO PRN (11:42)
[2019-07-10] MEDS ORDERED: IBUPROFEN 400 MG TABLET (FP) PO PRN (11:42)
[2019-07-10] MEDS ORDERED: MAGNESIUM CITRATE 300 ML BOTTLE PO PRN (11:42)
[2019-07-10] MEDS ORDERED: MENTHOL/PHENOL 1 EACH UD MM PRN (11:42)
[2019-07-10] MEDS ORDERED: METHOCARBAMOL 500 MG TABLET PO PRN (11:42)
[2019-07-10] MEDS ORDERED: ACETAMINOPHEN 325 MG TABLET (FP) PO PRN ×2 (11:42)
[2019-07-10] MEDS ORDERED: chlordiazePOXIDE HCL 25 MG CAPSULE PO PRN (11:42)
[2019-07-10] MEDS ORDERED: hydrOXYzine PAMOATE 25 MG CAPSULE (FP) PO PRN (11:42)
[2019-07-10] MEDS ORDERED: BISMUTH SUBSALICYLATE 524 MG/30 ML UD PO PRN (11:42)
[2019-07-10] MEDS ORDERED: MAGNESIUM HYDROX 2400MG/30ML ORAL SUSPENSION 30 ML CUP PO PRN (11:42)
[2019-07-10] MEDS: chlordiazePOXIDE HCL 25 MG CAPSULE PO SCH ×3 (12:54→23:09)
[2019-07-10 15:22] LABS: HEMATOCRIT 42.3 % (35.4-49); HEMOGLOBIN 14.1 GM/dL (11.7-16.9); MCH 27.4 pg (25.7-33.7); MCHC 33.3 g/dl (32.0-35.9); MEAN CELL VOLUME 82.3 fl (80-96); MEAN PLT VOLUME 8.1 fl (7.5-11.1); PLATELET COUNT 249 K/MM3 (134-434); RBC 5.13 M/mm3 (4.00-5.60); RDW 14.5 % (11.9-15.9); WHITE BLOOD COUNT 6.6 K/mm3 (4.0-10.0)
[2019-07-10 15:50] LABS: ALBUMIN 3.9 g/dl (3.4-5.0); BILIRUBIN,TOTAL 0.7 mg/dL (0.2-1); CALCIUM 8.8 mg/dL (8.5-10.1); CREATININE 1.2 mg/dL (0.55-1.3); POTASSIUM 3.9 mmol/L (3.5-5.1); TOT PROT 7.6 g/dl (6.4-8.2)
[2019-07-10] MEDS: DIVALPROEX SODIUM 250 MG TABLET E.C. PO SCH (22:53)
[2019-07-10] MEDS: THIAMINE HCL 100 MG TABLET (FP) PO SCH (22:54)
[2019-07-11] MEDS: chlordiazePOXIDE HCL 25 MG CAPSULE PO SCH ×4 (06:26→23:16)
[2019-07-11] MEDS: DIVALPROEX SODIUM 250 MG TABLET E.C. PO SCH ×2 (10:26→23:15)
[2019-07-11] MEDS: PRENATAL VITAMINS W/ FOLIC ACID TABLET (FP) PO SCH (10:26)
--- NOTE | 2019-07-11 13:40 | PN ---
S CIWA - CIWA Score Nausea/Vomitin-No Nausea/No Vomiting Muscle Tremors: 3 Anxiety: 3 Agitation: 4-Moderately Restless Paroxysmal Sweats: 3 Orientation: 0-Oriented Tacttile Disturbances: 0-None Auditory Disturbances: 0-None Visual Disturbances: 0-None Headache: 0-None Present CIWA-Ar Total Score: 13 B[facility] Progress Note (SOAP) Subjective: sweats restless tired interrupted sleep body aches Objective: 07/11/19 13:39 Vital Signs Temperature 98.1 F 07/11/19 09:09 Pulse Rate 70 07/11/19 09:09 Respiratory Rate 18 07/11/19 09:09 Blood Pressure 112/59 L 07/11/19 09:09 O2 Sat by Pulse Oximetry (%) Laboratory Tests 07/10/19 07/10/19 07/10/19 12:10 12:10 12:10 WBC 6.6 RBC 5.13 Hgb 14.1 Hct 42.3 MCV 82.3 MCH 27.4 MCHC 33.3 RDW 14.5 Plt Count 249 MPV 8.1 Sodium 140 Potassium 3.9 Chloride 101 Carbon Dioxide 28 Anion Gap 10 BUN 25.0 H Creatinine 1.2 Est GFR (CKD-EPI)AfAm 79.53 Est GFR (CKD-EPI)NonAf 68.62 Random Glucose 76 Calcium 8.8 Total Bilirubin 0.7 AST 44 H ALT 35 Alkaline Phosphatase 50 Total Protein 7.6 Albumin 3.9 RPR Titer Nonreactive labs noted aaox3 ambulating no acute distress Assessment: 07/11/19 13:40 withdrawals Plan: continue detox increase fluids
[2019-07-11] MEDS: THIAMINE HCL 100 MG TABLET (FP) PO SCH (23:16)
[2019-07-12] MEDS: chlordiazePOXIDE HCL 25 MG CAPSULE PO SCH ×4 (06:08→22:12)
[2019-07-12] MEDS: DIVALPROEX SODIUM 250 MG TABLET E.C. PO SCH ×2 (12:22→22:11)
[2019-07-12] MEDS: PRENATAL VITAMINS W/ FOLIC ACID TABLET (FP) PO SCH (12:22)
--- NOTE | 2019-07-12 13:49 | PN ---
S CIWA - CIWA Score Nausea/Vomitin-No Nausea/No Vomiting Muscle Tremors: 3 Anxiety: 2 Agitation: 2 Paroxysmal Sweats: 2 Orientation: 0-Oriented Tacttile Disturbances: 0-None Auditory Disturbances: 0-None Visual Disturbances: 0-None Headache: 0-None Present CIWA-Ar Total Score: 9 S Progress Note (SOAP) Subjective: sweats shakes upset stomach Objective: 07/12/19 13:49 Vital Signs Temperature 98.1 F 07/12/19 13:10 Pulse Rate 68 07/12/19 13:10 Respiratory Rate 18 07/12/19 13:10 Blood Pressure 123/65 07/12/19 13:10 O2 Sat by Pulse Oximetry (%) Laboratory Tests 07/10/19 07/10/19 07/10/19 12:10 12:10 12:10 WBC 6.6 RBC 5.13 Hgb 14.1 Hct 42.3 MCV 82.3 MCH 27.4 MCHC 33.3 RDW 14.5 Plt Count 249 MPV 8.1 Sodium 140 Potassium 3.9 Chloride 101 Carbon Dioxide 28 Anion Gap 10 BUN 25.0 H Creatinine 1.2 Est GFR (CKD-EPI)AfAm 79.53 Est GFR (CKD-EPI)NonAf 68.62 Random Glucose 76 Calcium 8.8 Total Bilirubin 0.7 AST 44 H ALT 35 Alkaline Phosphatase 50 Total Protein 7.6 Albumin 3.9 RPR Titer Nonreactive labs noted aaox3 ambulating no acute distress Assessment: 07/12/19 13:49 withdrawals Plan: continue detox increase fluids mom/mylanta prn
[2019-07-12] MEDS ORDERED: ONDANSETRON *ODT* 4 MG TABLET SL PRN (13:50)
[2019-07-12] MEDS: THIAMINE HCL 100 MG TABLET (FP) PO SCH (22:12)
[2019-07-13] MEDS ORDERED: chlordiazePOXIDE HCL 10 MG CAPSULE PO PRN
[2019-07-13] MEDS: chlordiazePOXIDE HCL 10 MG CAPSULE PO SCH ×4 (06:33→23:05)
[2019-07-13] MEDS: PRENATAL VITAMINS W/ FOLIC ACID TABLET (FP) PO SCH (10:04)
[2019-07-13] MEDS: DIVALPROEX SODIUM 250 MG TABLET E.C. PO SCH ×2 (10:04→23:05)
--- NOTE | 2019-07-13 12:57 | PN ---
S CIWA - CIWA Score Nausea/Vomitin-No Nausea/No Vomiting Muscle Tremors: 2 Anxiety: 2 Agitation: 2 Paroxysmal Sweats: 2 Orientation: 0-Oriented Tacttile Disturbances: 0-None Auditory Disturbances: 0-None Visual Disturbances: 0-None Headache: 0-None Present CIWA-Ar Total Score: 8 BHS Progress Note (SOAP) Subjective: sweats interrupted sleep Objective: 07/13/19 12:56 Vital Signs Temperature 97.9 F 07/13/19 09:50 Pulse Rate 67 07/13/19 09:50 Respiratory Rate 18 07/13/19 09:50 Blood Pressure 117/74 07/13/19 09:50 O2 Sat by Pulse Oximetry (%) aaox3 ambulating no acute distress Assessment: 07/13/19 12:56 mild withdrawals Plan: continue detox increase fluids
[2019-07-13] MEDS: THIAMINE HCL 100 MG TABLET (FP) PO SCH (23:05)
[2019-07-14] MEDS ORDERED: chlordiazePOXIDE HCL 10 MG CAPSULE PO SCH (05:00)
[2019-07-14 09:36] VITALS: BP 129/68; PULSE 78; TEMP 98.6
[2019-07-14] MEDS: PRENATAL VITAMINS W/ FOLIC ACID TABLET (FP) PO SCH (09:56)
[2019-07-14] MEDS: DIVALPROEX SODIUM 250 MG TABLET E.C. PO SCH (09:56)
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
[2019-07-15] MEDS ORDERED: chlordiazePOXIDE HCL 10 MG CAPSULE PO ONE (05:00)
== END 2019-07-14 12:28 | disposition other institution (70) | DRG 897 ==
LOC: YASAS 10:45 → Y6N 12:14
PROVIDERS: ADMIT Allergy & Immunology; ATTEND Allergy & Immunology
PROC: HZ2ZZZZ Detoxification Services for Substance Abuse Treatment (ICD-10-PCS; principal; 2019-07-10)
DX: F10.230 Alcohol dependence with withdrawal, uncomplicated (principal); F14.20 Cocaine dependence, uncomplicated; F19.282 Other psychoactive substance dependence with psychoactive substance-induced sleep disorder; F31.81 Bipolar II disorder; F13.10 Sedative, hypnotic or anxiolytic abuse, uncomplicated; F12.20 Cannabis dependence, uncomplicated; F19.24 Other psychoactive substance dependence with psychoactive substance-induced mood disorder; F41.9 Anxiety disorder, unspecified; R76.11 Nonspecific reaction to tuberculin skin test without active tuberculosis; Z94.5 Skin transplant status
CPT/HCPCS: 36415; 71046-TC-FY; 80053; 85027; 86593

== ENCOUNTER 2020-05-09 12:02 | Inpatient (IN) | payer OTHER ==
--- NOTE | 2020-05-09 12:13 | BHS.RME ---
Substance Use & Tx History - Substance Use History Alcohol Substance amount: 1/2 pint vodka + beers Frequency of use: Daily Substance route: Oral Date of Last Use: 05/08/20 Cocaine-Crack Substance amount: $30-40 Frequency of use: Daily Substance route: Smoking Date of Last Use: 05/08/20 Physical/Psych/Mental Status - Behavior General Behavior: Increased activity (restlessness, agitation) Eye Contact: Normal - Cooperativeness Cooperativeness: Cooperative - Thinking Thought Processes: Tight, Logical, Goal Directed - Physical Health Problems Is patient presently having any pain?: No Does patient presently have any injuries (include location): No Does patient currently have a fever: No Is patient : No CIWA Nausea/Vomitin-No Nausea/No Vomiting Muscle Tremors: 3 Anxiety: 3 Agitation: 4-Moderately Restless Paroxysmal Sweats: 4-Forehead w/Sweat Beads Orientation: 0-Oriented Tacttile Disturbances: 0-None Auditory Disturbances: 0-None Visual Disturbances: 0-None Headache: 3-Moderate CIWA-Ar Total Score: 17
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
[2020-05-09] MEDS ORDERED: chlordiazePOXIDE HCL 25 MG CAPSULE PO PRN (15:44)
[2020-05-09] MEDS ORDERED: MAGNESIUM HYDROX 2400MG/30ML ORAL SUSPENSION 30 ML CUP PO PRN (15:44)
[2020-05-09] MEDS ORDERED: IBUPROFEN 400 MG TABLET (FP) PO PRN (15:44)
[2020-05-09] MEDS ORDERED: METHOCARBAMOL 500 MG TABLET PO PRN (15:44)
[2020-05-09] MEDS ORDERED: MAG HYDROX/AL HYDROX/SIMETH 30 ML UNIT-DOSE CUP PO PRN (15:44)
[2020-05-09] MEDS ORDERED: ACETAMINOPHEN 325 MG TABLET (FP) PO PRN ×2 (15:44)
[2020-05-09] MEDS ORDERED: MENTHOL/PHENOL 1 EACH UD MM PRN (15:44)
[2020-05-09] MEDS ORDERED: MAGNESIUM CITRATE 300 ML BOTTLE PO PRN (15:44)
[2020-05-09] MEDS ORDERED: ONDANSETRON *ODT* 4 MG TABLET SL PRN (15:44)
[2020-05-09] MEDS ORDERED: NICOTINE POLACRILEX 2 MG GUM BUC PRN (15:44)
[2020-05-09] MEDS ORDERED: BISMUTH SUBSALICYLATE 524 MG/30 ML UD PO PRN (15:44)
[2020-05-09 16:05] VITALS: BMI 27.9
[2020-05-09] MEDS: chlordiazePOXIDE HCL 25 MG CAPSULE PO SCH ×2 (18:04→23:45)
[2020-05-09] MEDS: hydrOXYzine PAMOATE 25 MG CAPSULE (FP) PO SCH ×2 (18:05→23:45)
[2020-05-09] MEDS: MELATONIN 5 MG TABLETS PO SCH (23:45)
[2020-05-09] MEDS: THIAMINE HCL 100 MG TABLET (FP) PO SCH (23:45)
[2020-05-10] MEDS: hydrOXYzine PAMOATE 25 MG CAPSULE (FP) PO SCH ×5 (06:10→21:31)
[2020-05-10] MEDS: chlordiazePOXIDE HCL 25 MG CAPSULE PO SCH (06:10)
[2020-05-10] MEDS ORDERED: diazePAM 5 MG TABLET PO PRN (09:58)
[2020-05-10 10:53] LABS: HEMATOCRIT 40.6 % (35.4-49); HEMOGLOBIN 13.1 GM/dL (11.7-16.9); MCH 26.3 pg (25.7-33.7); MCHC 32.2 g/dl (32.0-35.9); MEAN CELL VOLUME 81.7 fl (80-96); MEAN PLT VOLUME 8.2 fl (7.5-11.1); PLATELET COUNT 266 K/MM3 (134-434); RBC 4.97 M/mm3 (4.00-5.60); RDW 14.8 % (11.9-15.9); WHITE BLOOD COUNT 4.8 K/mm3 (4.0-10.0)
[2020-05-10 11:10] LABS: BILIRUBIN,TOTAL 0.4 mg/dL (0.2-1); BLOOD UREA NITROGEN 14.4 mg/dL (7-18); CALCIUM 8.3 mg/dL (8.5-10.1); POTASSIUM 4.1 mmol/L (3.5-5.1); TOT PROT 6.3 g/dl (6.4-8.2)
[2020-05-10] MEDS: NICOTINE 7 MG/24 HOURS TOPICAL PATCH TD SCH (11:25)
[2020-05-10] MEDS: PRENATAL VITAMINS W/ FOLIC ACID TABLET (FP) PO SCH (11:25)
--- NOTE | 2020-05-10 12:25 | PN ---
[facility] CIWA - CIWA Score Nausea/Vomitin-Mild Nausea/No Vomiting Muscle Tremors: 2 Anxiety: 2 Agitation: 2 Paroxysmal Sweats: No Perspiration Orientation: 0-Oriented Tacttile Disturbances: 1-Very Mild Itch/Numbness Auditory Disturbances: 0-None Visual Disturbances: 0-None Headache: 2-Mild CIWA-Ar Total Score: 10 S Progress Note (SOAP) Subjective: alert,irritable,anxious,interrupted sleep,tremor,body ache in body,back Objective: 05/10/20 12:24 Vital Signs Temperature 97.1 F L 05/10/20 08:53 Pulse Rate 87 05/10/20 08:53 Respiratory Rate 20 05/10/20 08:53 Blood Pressure 114/64 05/10/20 08:53 O2 Sat by Pulse Oximetry (%) 97 05/10/20 08:53 05/10/20 12:25 Laboratory Last Values WBC 4.8 K/mm3 (4.0-10.0) 05/10/20 07:30 RBC 4.97 M/mm3 (4.00-5.60) 05/10/20 07:30 Hgb 13.1 GM/dL (11.7-16.9) 05/10/20 07:30 Hct 40.6 % (35.4-49) 05/10/20 07:30 MCV 81.7 fl (80-96) 05/10/20 07:30 MCH 26.3 pg (25.7-33.7) 05/10/20 07:30 MCHC 32.2 g/dl (32.0-35.9) 05/10/20 07:30 RDW 14.8 % (11.9-15.9) 05/10/20 07:30 Plt Count 266 K/MM3 (134-434) 05/10/20 07:30 MPV 8.2 fl (7.5-11.1) 05/10/20 07:30 Sodium 141 mmol/L (136-145) 05/10/20 07:30 Potassium 4.1 mmol/L (3.5-5.1) 05/10/20 07:30 Chloride 107 mmol/L (98-107) 05/10/20 07:30 Carbon Dioxide 27 mmol/L (21-32) 05/10/20 07:30 Anion Gap 7 MMOL/L (8-16) L 05/10/20 07:30 BUN 14.4 mg/dL (7-18) 05/10/20 07:30 Creatinine 1.0 mg/dL (0.55-1.3) 05/10/20 07:30 Est GFR (CKD-EPI)AfAm 98.46 05/10/20 07:30 Est GFR (CKD-EPI)NonAf 84.95 05/10/20 07:30 Random Glucose 104 mg/dL (74-106) 05/10/20 07:30 Calcium 8.3 mg/dL (8.5-10.1) L 05/10/20 07:30 Total Bilirubin 0.4 mg/dL (0.2-1) 05/10/20 07:30 AST 15 U/L (15-37) 05/10/20 07:30 ALT 20 U/L (13-61) 05/10/20 07:30 Alkaline Phosphatase 48 U/L (45-117) 05/10/20 07:30 Total Protein 6.3 g/dl (6.4-8.2) L 05/10/20 07:30 Albumin 3.0 g/dl (3.4-5.0) L 05/10/20 07:30 Syphilis Serology Non-reactive (NONREACTIVE) 05/10/20 07:30 Assessment: 05/10/20 12:28 withdrawal symptom Plan: patient was contracted for non compliance,agreed to stay,would like regimen to change regimen to change from librium to valium regimen
[2020-05-10] MEDS: diazePAM 5 MG TABLET PO SCH ×2 (14:20→21:25)
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
[2020-05-10] MEDS: DIVALPROEX SODIUM 500 MG TABLET E.C. PO SCH (21:25)
[2020-05-10] MEDS: MELATONIN 5 MG TABLETS PO SCH (21:31)
[2020-05-10] MEDS: THIAMINE HCL 100 MG TABLET (FP) PO SCH (21:31)
[2020-05-11] MEDS ORDERED: chlordiazePOXIDE HCL 25 MG CAPSULE PO SCH (05:00)
[2020-05-11] MEDS: diazePAM 5 MG TABLET PO SCH ×3 (06:25→23:00)
[2020-05-11] MEDS: hydrOXYzine PAMOATE 25 MG CAPSULE (FP) PO SCH ×5 (06:25→23:00)
[2020-05-11] MEDS: PRENATAL VITAMINS W/ FOLIC ACID TABLET (FP) PO SCH (11:25)
[2020-05-11] MEDS: CITALOPRAM HYDROBROMIDE 20 MG TABLET PO SCH (11:25)
[2020-05-11] MEDS: DIVALPROEX SODIUM 500 MG TABLET E.C. PO SCH ×2 (11:25→23:00)
[2020-05-11] MEDS: NICOTINE 7 MG/24 HOURS TOPICAL PATCH TD SCH (11:27)
--- NOTE | 2020-05-11 14:49 | PN ---
[facility] CIWA - CIWA Score Nausea/Vomitin-No Nausea/No Vomiting Muscle Tremors: 2 Anxiety: 2 Agitation: 1-Slight > Activity Paroxysmal Sweats: 2 Orientation: 0-Oriented Tacttile Disturbances: 0-None Auditory Disturbances: 0-None Visual Disturbances: 2-Mild Sensitivity Headache: 0-None Present CIWA-Ar Total Score: 9 S Progress Note (SOAP) Subjective: Complaints of shakes, sweats, anxiety and noise sensitivity. Objective: 05/11/20 14:48 Vital Signs 05/11/20 05/11/20 09:17 13:34 Temperature 97.2 F L 97.2 F L Pulse Rate 89 77 Respiratory 18 18 Rate Blood Pressure 140/67 132/78 O2 Sat by Pulse 97 97 Oximetry (%) Laboratory Last Values WBC 4.8 K/mm3 (4.0-10.0) 05/10/20 07:30 RBC 4.97 M/mm3 (4.00-5.60) 05/10/20 07:30 Hgb 13.1 GM/dL (11.7-16.9) 05/10/20 07:30 Hct 40.6 % (35.4-49) 05/10/20 07:30 MCV 81.7 fl (80-96) 05/10/20 07:30 MCH 26.3 pg (25.7-33.7) 05/10/20 07:30 MCHC 32.2 g/dl (32.0-35.9) 05/10/20 07:30 RDW 14.8 % (11.9-15.9) 05/10/20 07:30 Plt Count 266 K/MM3 (134-434) 05/10/20 07:30 MPV 8.2 fl (7.5-11.1) 05/10/20 07:30 Sodium 141 mmol/L (136-145) 05/10/20 07:30 Potassium 4.1 mmol/L (3.5-5.1) 05/10/20 07:30 Chloride 107 mmol/L (98-107) 05/10/20 07:30 Carbon Dioxide 27 mmol/L (21-32) 05/10/20 07:30 Anion Gap 7 MMOL/L (8-16) L 05/10/20 07:30 BUN 14.4 mg/dL (7-18) 05/10/20 07:30 Creatinine 1.0 mg/dL (0.55-1.3) 05/10/20 07:30 Est GFR (CKD-EPI)AfAm 98.46 05/10/20 07:30 Est GFR (CKD-EPI)NonAf 84.95 05/10/20 07:30 Random Glucose 104 mg/dL (74-106) 05/10/20 07:30 Calcium 8.3 mg/dL (8.5-10.1) L 05/10/20 07:30 Total Bilirubin 0.4 mg/dL (0.2-1) 05/10/20 07:30 AST 15 U/L (15-37) 05/10/20 07:30 ALT 20 U/L (13-61) 05/10/20 07:30 Alkaline Phosphatase 48 U/L (45-117) 05/10/20 07:30 Total Protein 6.3 g/dl (6.4-8.2) L 05/10/20 07:30 Albumin 3.0 g/dl (3.4-5.0) L 05/10/20 07:30 Syphilis Serology Non-reactive (NONREACTIVE) 05/10/20 07:30 Labs noted. Assessment: 05/11/20 14:48 Alert and oriented x3, in no acute respiratory distress. Full ROM, ambulating in hallway without assistance. Skin warm to touch with no lesions noted. Withdrawal symptoms. Plan: Continue detox protocol.
[2020-05-11] MEDS: MELATONIN 5 MG TABLETS PO SCH (23:00)
[2020-05-11] MEDS: THIAMINE HCL 100 MG TABLET (FP) PO SCH (23:00)
[2020-05-12] MEDS ORDERED: chlordiazePOXIDE HCL 10 MG CAPSULE PO PRN
[2020-05-12] MEDS ORDERED: chlordiazePOXIDE HCL 10 MG CAPSULE PO SCH (05:00)
[2020-05-12] MEDS: hydrOXYzine PAMOATE 25 MG CAPSULE (FP) PO SCH ×5 (06:12→23:00)
[2020-05-12] MEDS: diazePAM 5 MG TABLET PO SCH ×2 (06:12→18:46)
[2020-05-12] MEDS: DIVALPROEX SODIUM 500 MG TABLET E.C. PO SCH ×2 (10:30→23:00)
[2020-05-12] MEDS: CITALOPRAM HYDROBROMIDE 20 MG TABLET PO SCH (11:15)
[2020-05-12] MEDS: NICOTINE 7 MG/24 HOURS TOPICAL PATCH TD SCH (11:16)
[2020-05-12] MEDS: PRENATAL VITAMINS W/ FOLIC ACID TABLET (FP) PO SCH (11:16)
--- NOTE | 2020-05-12 11:28 | PN ---
[facility] CIWA - CIWA Score Nausea/Vomitin-No Nausea/No Vomiting Muscle Tremors: None Anxiety: 4-Mod. Anxious/Guarded Agitation: 2 Paroxysmal Sweats: No Perspiration Orientation: 0-Oriented Tacttile Disturbances: 0-None Auditory Disturbances: 0-None Visual Disturbances: 0-None Headache: 0-None Present CIWA-Ar Total Score: 6 [facility] Progress Note (SOAP) Subjective: ETOH WITHDRAWAL SX ROS: PATIENT DENIES SHAKES, H/A AND SWEATING. +IRRITABILITY AND GUARDED Objective: 05/12/20 11:27 Laboratory Tests 05/09/20 05/10/20 05/10/20 16:35 07:30 07:30 WBC 4.8 RBC 4.97 Hgb 13.1 Hct 40.6 MCV 81.7 MCH 26.3 MCHC 32.2 RDW 14.8 Plt Count 266 MPV 8.2 Sodium Potassium Chloride Carbon Dioxide Anion Gap BUN Creatinine Est GFR (CKD-EPI)AfAm Est GFR (CKD-EPI)NonAf Random Glucose Calcium Total Bilirubin AST ALT Alkaline Phosphatase Total Protein Albumin Syphilis Serology Non-reactive COVID-19 (LACIE) Not detected 05/10/20 07:30 WBC RBC Hgb Hct MCV MCH MCHC RDW Plt Count MPV Sodium 141 Potassium 4.1 Chloride 107 Carbon Dioxide 27 Anion Gap 7 L BUN 14.4 Creatinine 1.0 Est GFR (CKD-EPI)AfAm 98.46 Est GFR (CKD-EPI)NonAf 84.95 Random Glucose 104 Calcium 8.3 L Total Bilirubin 0.4 AST 15 ALT 20 Alkaline Phosphatase 48 Total Protein 6.3 L Albumin 3.0 L Syphilis Serology COVID-19 (LACIE) Vital Signs Temperature 97.1 F L 05/12/20 09:26 Pulse Rate 77 05/12/20 09:26 Respiratory Rate 20 05/12/20 09:26 Blood Pressure 142/80 05/12/20 09:26 O2 Sat by Pulse Oximetry (%) 99 05/12/20 09:26 PE ALERT AND ORIENTED X 3 SKIN WARM AND DRY IN NAD EXT TO TREMORS, AMB AD ROSMERY GUARDED AND IRRITABLE Assessment: 05/12/20 11:27 ETOH WITHDRAWAL SX Plan: CONTINUE DETOX D/C IN AM
[2020-05-12] MEDS: THIAMINE HCL 100 MG TABLET (FP) PO SCH (23:00)
[2020-05-12] MEDS: MELATONIN 5 MG TABLETS PO SCH (23:00)
[2020-05-13] MEDS ORDERED: chlordiazePOXIDE HCL 10 MG CAPSULE PO SCH (05:00)
[2020-05-13] MEDS: hydrOXYzine PAMOATE 25 MG CAPSULE (FP) PO SCH ×5 (05:58→21:40)
[2020-05-13] MEDS ORDERED: diazePAM 5 MG TABLET PO ONE (06:00)
[2020-05-13] MEDS: CITALOPRAM HYDROBROMIDE 20 MG TABLET PO SCH (11:27)
[2020-05-13] MEDS: PRENATAL VITAMINS W/ FOLIC ACID TABLET (FP) PO SCH (11:27)
[2020-05-13] MEDS: NICOTINE 7 MG/24 HOURS TOPICAL PATCH TD SCH (11:28)
[2020-05-13] MEDS: DIVALPROEX SODIUM 500 MG TABLET E.C. PO SCH ×2 (11:51→21:40)
--- NOTE | 2020-05-13 11:54 | PN ---
[facility] CIWA - CIWA Score Nausea/Vomitin-No Nausea/No Vomiting Muscle Tremors: None Anxiety: 1-Mildly Anxious Agitation: 0-Normal Activity Paroxysmal Sweats: No Perspiration Orientation: 0-Oriented Tacttile Disturbances: 0-None Auditory Disturbances: 0-None Visual Disturbances: 0-None Headache: 0-None Present CIWA-Ar Total Score: 1 S Progress Note (SOAP) Subjective: alert,no complaint Objective: 05/13/20 11:52 Vital Signs Temperature 97.1 F L 05/13/20 11:14 Pulse Rate 74 05/13/20 11:14 Respiratory Rate 20 05/13/20 11:14 Blood Pressure 119/68 05/13/20 11:14 O2 Sat by Pulse Oximetry (%) 99 05/13/20 05:37 Assessment: 05/13/20 11:52 detox completed,no withdrawal symptom Plan: patient is stable for discharge today,follow up with after care program as arrangement
--- NOTE | 2020-05-13 11:56 | DS ---
[facility] Detox Discharge Summary Admission Date: 05/09/20 Discharge Date: 05/13/20 - History Present History: Alcohol Dependence, Cannabis Dependence, Cocaine Dependence Additional Comments: alert,oriented x3 ambulation on the unit lung clear on auscultation bilaterally abdomen soft,no distension,no pain,no tenderness detox completed,no withdrawal symptom stable for discharge today follow up with after care program ,[facility] as arrangement total time of discharge 35 minutes Pertinent Past History: bipolar disorder history of skin graft - Physical Exam Results Vital Signs: Vital Signs Temperature 97.1 F L 05/13/20 11:14 Pulse Rate 74 05/13/20 11:14 Respiratory Rate 20 05/13/20 11:14 Blood Pressure 119/68 05/13/20 11:14 O2 Sat by Pulse Oximetry (%) 99 05/13/20 05:37 Pertinent Admission Physical Exam Findings: withdrawal signs and symptom Laboratory Last Values WBC 4.8 K/mm3 (4.0-10.0) 05/10/20 07:30 RBC 4.97 M/mm3 (4.00-5.60) 05/10/20 07:30 Hgb 13.1 GM/dL (11.7-16.9) 05/10/20 07:30 Hct 40.6 % (35.4-49) 05/10/20 07:30 MCV 81.7 fl (80-96) 05/10/20 07:30 MCH 26.3 pg (25.7-33.7) 05/10/20 07:30 MCHC 32.2 g/dl (32.0-35.9) 05/10/20 07:30 RDW 14.8 % (11.9-15.9) 05/10/20 07:30 Plt Count 266 K/MM3 (134-434) 05/10/20 07:30 MPV 8.2 fl (7.5-11.1) 05/10/20 07:30 Sodium 141 mmol/L (136-145) 05/10/20 07:30 Potassium 4.1 mmol/L (3.5-5.1) 05/10/20 07:30 Chloride 107 mmol/L (98-107) 05/10/20 07:30 Carbon Dioxide 27 mmol/L (21-32) 05/10/20 07:30 Anion Gap 7 MMOL/L (8-16) L 05/10/20 07:30 BUN 14.4 mg/dL (7-18) 05/10/20 07:30 Creatinine 1.0 mg/dL (0.55-1.3) 05/10/20 07:30 Est GFR (CKD-EPI)AfAm 98.46 05/10/20 07:30 Est GFR (CKD-EPI)NonAf 84.95 05/10/20 07:30 Random Glucose 104 mg/dL (74-106) 05/10/20 07:30 Calcium 8.3 mg/dL (8.5-10.1) L 05/10/20 07:30 Total Bilirubin 0.4 mg/dL (0.2-1) 05/10/20 07:30 AST 15 U/L (15-37) 05/10/20 07:30 ALT 20 U/L (13-61) 05/10/20 07:30 Alkaline Phosphatase 48 U/L (45-117) 05/10/20 07:30 Total Protein 6.3 g/dl (6.4-8.2) L 05/10/20 07:30 Albumin 3.0 g/dl (3.4-5.0) L 05/10/20 07:30 Syphilis Serology Non-reactive (NONREACTIVE) 05/10/20 07:30 COVID-19 (LACIE) Not detected (Not Detected) 05/09/20 16:35 Vital Signs Temperature 97.1 F L 05/13/20 11:14 Pulse Rate 74 05/13/20 11:14 Respiratory Rate 20 05/13/20 11:14 Blood Pressure 119/68 05/13/20 11:14 O2 Sat by Pulse Oximetry (%) 99 05/13/20 05:37 - Treatment Hospital Course: Detox Protocol Followed, Detoxed Safely, Responded well, Discharged Condition Good, Rehab Referral Accepted - Medication Discharge Medications: Ambulatory Orders NK [No Known Home Medication] 02/01/20 - Diagnosis (1) Alcohol dependence with uncomplicated withdrawal Current Visit: Yes Status: Acute (2) Cocaine dependence, uncomplicated Current Visit: Yes Status: Acute (3) Bipolar disorder Current Visit: Yes Status: Chronic (4) Cannabis dependence, uncomplicated Current Visit: No Status: Acute (5) History of skin graft Current Visit: No Status: Acute - AMA Did Patient Leave Against Medical Advice: No
--- NOTE | 2020-05-13 15:15 | HP ---
[facility] Rehab Assess/Revision - Admission History Admitted to Rehab from: [facility] Date of Admission to Rehab: 05/13/2020 - Vital signs Vital Signs: Vital Signs Period Temp Pulse Resp BP Sys/Haynes Pulse Ox Last 24 Hr 97.1 F-98.6 F 61-77 16-20 107-131/61-84 96-99 - Findings Detox History & Physical reviewed: Yes Concur with findings: Yes Comments/Additional Findings: for rehab as protocol Inpatient Rehab Admission - Rehab Decision to Admit Inpatient rehab admission?: Yes - Initial Determination Are CD services needed?: Yes Free of communicable disease: Yes Not in need of hospitalization: Yes - Rehab Admission Criteria Previous failed treatment: Yes Poor recovery environment: Yes Comorbidities: Yes Lacks judgement: No Patient is meeting Inpatient Rehab admission criteria:: Yes
[2020-05-13] MEDS: MELATONIN 5 MG TABLETS PO SCH (21:40)
[2020-05-13] MEDS: THIAMINE HCL 100 MG TABLET (FP) PO SCH (21:40)
[2020-05-14] MEDS ORDERED: chlordiazePOXIDE HCL 10 MG CAPSULE PO ONE (05:00)
[2020-05-14] MEDS: hydrOXYzine PAMOATE 25 MG CAPSULE (FP) PO SCH ×5 (06:16→21:11)
[2020-05-14] MEDS ORDERED: PT OWN MED DRAWER 7, Y5N ONE (09:14)
[2020-05-14] MEDS: DIVALPROEX SODIUM 500 MG TABLET E.C. PO SCH ×2 (10:45→21:11)
[2020-05-14] MEDS: NICOTINE 7 MG/24 HOURS TOPICAL PATCH TD SCH (10:45)
[2020-05-14] MEDS: PRENATAL VITAMINS W/ FOLIC ACID TABLET (FP) PO SCH (10:45)
[2020-05-14] MEDS: CITALOPRAM HYDROBROMIDE 20 MG TABLET PO SCH (11:27)
[2020-05-14] MEDS: MELATONIN 5 MG TABLETS PO SCH (21:11)
[2020-05-14] MEDS: THIAMINE HCL 100 MG TABLET (FP) PO SCH (21:11)
[2020-05-15] MEDS: hydrOXYzine PAMOATE 25 MG CAPSULE (FP) PO SCH ×3 (06:09→15:25)
[2020-05-15] MEDS: PRENATAL VITAMINS W/ FOLIC ACID TABLET (FP) PO SCH (10:25)
[2020-05-15] MEDS: DIVALPROEX SODIUM 500 MG TABLET E.C. PO SCH ×2 (10:26→21:32)
[2020-05-15] MEDS: CITALOPRAM HYDROBROMIDE 20 MG TABLET PO SCH (10:26)
[2020-05-15] MEDS: NICOTINE 7 MG/24 HOURS TOPICAL PATCH TD SCH (10:26)
[2020-05-15] MEDS: MELATONIN 5 MG TABLETS PO SCH (21:32)
[2020-05-15] MEDS: THIAMINE HCL 100 MG TABLET (FP) PO SCH (21:32)
[2020-05-16] MEDS: PRENATAL VITAMINS W/ FOLIC ACID TABLET (FP) PO SCH (09:54)
[2020-05-16] MEDS: NICOTINE 7 MG/24 HOURS TOPICAL PATCH TD SCH (09:54)
[2020-05-16] MEDS: CITALOPRAM HYDROBROMIDE 20 MG TABLET PO SCH (09:54)
[2020-05-16] MEDS: DIVALPROEX SODIUM 500 MG TABLET E.C. PO SCH ×2 (09:54→21:44)
[2020-05-16] MEDS: THIAMINE HCL 100 MG TABLET (FP) PO SCH (21:44)
[2020-05-16] MEDS: MELATONIN 5 MG TABLETS PO SCH (21:45)
[2020-05-17] MEDS: NICOTINE 7 MG/24 HOURS TOPICAL PATCH TD SCH (09:48)
[2020-05-17] MEDS: PRENATAL VITAMINS W/ FOLIC ACID TABLET (FP) PO SCH (09:48)
[2020-05-17] MEDS: DIVALPROEX SODIUM 500 MG TABLET E.C. PO SCH ×2 (09:48→22:11)
[2020-05-17] MEDS: CITALOPRAM HYDROBROMIDE 20 MG TABLET PO SCH (09:48)
[2020-05-17] MEDS: THIAMINE HCL 100 MG TABLET (FP) PO SCH (22:11)
[2020-05-17] MEDS: MELATONIN 5 MG TABLETS PO SCH (22:11)
[2020-05-18] MEDS: DIVALPROEX SODIUM 500 MG TABLET E.C. PO SCH ×2 (10:18→21:21)
[2020-05-18] MEDS: CITALOPRAM HYDROBROMIDE 20 MG TABLET PO SCH (10:18)
[2020-05-18] MEDS: NICOTINE 7 MG/24 HOURS TOPICAL PATCH TD SCH (10:18)
[2020-05-18] MEDS: PRENATAL VITAMINS W/ FOLIC ACID TABLET (FP) PO SCH (10:19)
[2020-05-18] MEDS: MELATONIN 5 MG TABLETS PO SCH (21:21)
[2020-05-18] MEDS: THIAMINE HCL 100 MG TABLET (FP) PO SCH (21:21)
[2020-05-19] MEDS: PRENATAL VITAMINS W/ FOLIC ACID TABLET (FP) PO SCH (10:58)
[2020-05-19] MEDS: NICOTINE 7 MG/24 HOURS TOPICAL PATCH TD SCH (10:58)
[2020-05-19] MEDS: DIVALPROEX SODIUM 500 MG TABLET E.C. PO SCH ×2 (10:58→21:56)
[2020-05-19] MEDS: CITALOPRAM HYDROBROMIDE 20 MG TABLET PO SCH (10:58)
[2020-05-19] MEDS ORDERED: PT OWN MED DRAWER 7, Y5N ONE (15:14)
[2020-05-19] MEDS: MELATONIN 5 MG TABLETS PO SCH (21:56)
[2020-05-19] MEDS: THIAMINE HCL 100 MG TABLET (FP) PO SCH (21:56)
[2020-05-20] MEDS: PRENATAL VITAMINS W/ FOLIC ACID TABLET (FP) PO SCH (10:52)
[2020-05-20] MEDS: CITALOPRAM HYDROBROMIDE 20 MG TABLET PO SCH (10:52)
[2020-05-20] MEDS: DIVALPROEX SODIUM 500 MG TABLET E.C. PO SCH ×2 (10:52→21:17)
[2020-05-20] MEDS: NICOTINE 7 MG/24 HOURS TOPICAL PATCH TD SCH (10:53)
[2020-05-20] MEDS: THIAMINE HCL 100 MG TABLET (FP) PO SCH (21:17)
[2020-05-20] MEDS: MELATONIN 5 MG TABLETS PO SCH (21:17)
[2020-05-21] MEDS: PRENATAL VITAMINS W/ FOLIC ACID TABLET (FP) PO SCH (10:31)
[2020-05-21] MEDS: DIVALPROEX SODIUM 500 MG TABLET E.C. PO SCH ×2 (10:31→22:03)
[2020-05-21] MEDS: NICOTINE 7 MG/24 HOURS TOPICAL PATCH TD SCH (10:31)
[2020-05-21] MEDS: CITALOPRAM HYDROBROMIDE 20 MG TABLET PO SCH (10:31)
[2020-05-21] MEDS: THIAMINE HCL 100 MG TABLET (FP) PO SCH (22:03)
[2020-05-21] MEDS: MELATONIN 5 MG TABLETS PO SCH (22:03)
[2020-05-22] MEDS: PRENATAL VITAMINS W/ FOLIC ACID TABLET (FP) PO SCH (10:33)
[2020-05-22] MEDS: DIVALPROEX SODIUM 500 MG TABLET E.C. PO SCH ×2 (10:33→21:10)
[2020-05-22] MEDS: CITALOPRAM HYDROBROMIDE 20 MG TABLET PO SCH (10:33)
[2020-05-22] MEDS: NICOTINE 7 MG/24 HOURS TOPICAL PATCH TD SCH (10:34)
[2020-05-22] MEDS: THIAMINE HCL 100 MG TABLET (FP) PO SCH (21:10)
[2020-05-22] MEDS: MELATONIN 5 MG TABLETS PO SCH (21:10)
[2020-05-23] MEDS: DIVALPROEX SODIUM 500 MG TABLET E.C. PO SCH ×2 (10:32→21:32)
[2020-05-23] MEDS: CITALOPRAM HYDROBROMIDE 20 MG TABLET PO SCH (10:32)
[2020-05-23] MEDS: PRENATAL VITAMINS W/ FOLIC ACID TABLET (FP) PO SCH (10:32)
[2020-05-23] MEDS: NICOTINE 7 MG/24 HOURS TOPICAL PATCH TD SCH (10:32)
[2020-05-23] MEDS: MELATONIN 5 MG TABLETS PO SCH (21:32)
[2020-05-23] MEDS: THIAMINE HCL 100 MG TABLET (FP) PO SCH (21:32)
[2020-05-24] MEDS: PRENATAL VITAMINS W/ FOLIC ACID TABLET (FP) PO SCH (09:55)
[2020-05-24] MEDS: DIVALPROEX SODIUM 500 MG TABLET E.C. PO SCH ×2 (09:55→21:10)
[2020-05-24] MEDS: CITALOPRAM HYDROBROMIDE 20 MG TABLET PO SCH (09:55)
[2020-05-24] MEDS: NICOTINE 7 MG/24 HOURS TOPICAL PATCH TD SCH (09:56)
[2020-05-24] MEDS: THIAMINE HCL 100 MG TABLET (FP) PO SCH (21:10)
[2020-05-24] MEDS: MELATONIN 5 MG TABLETS PO SCH (21:10)
[2020-05-25] MEDS: CITALOPRAM HYDROBROMIDE 20 MG TABLET PO SCH (10:07)
[2020-05-25] MEDS: DIVALPROEX SODIUM 500 MG TABLET E.C. PO SCH ×2 (10:07→21:48)
[2020-05-25] MEDS: PRENATAL VITAMINS W/ FOLIC ACID TABLET (FP) PO SCH (10:08)
[2020-05-25] MEDS: NICOTINE 7 MG/24 HOURS TOPICAL PATCH TD SCH (10:08)
[2020-05-25] MEDS: MELATONIN 5 MG TABLETS PO SCH (21:48)
[2020-05-25] MEDS: THIAMINE HCL 100 MG TABLET (FP) PO SCH (21:48)
[2020-05-26] MEDS: DIVALPROEX SODIUM 500 MG TABLET E.C. PO SCH ×2 (09:32→21:47)
[2020-05-26] MEDS: PRENATAL VITAMINS W/ FOLIC ACID TABLET (FP) PO SCH (09:32)
[2020-05-26] MEDS: CITALOPRAM HYDROBROMIDE 20 MG TABLET PO SCH (09:32)
[2020-05-26] MEDS: NICOTINE 7 MG/24 HOURS TOPICAL PATCH TD SCH (09:32)
[2020-05-26] MEDS: MELATONIN 5 MG TABLETS PO SCH (21:47)
[2020-05-26] MEDS: THIAMINE HCL 100 MG TABLET (FP) PO SCH (21:47)
[2020-05-27] MEDS ORDERED: PT OWN MED DRAWER 7, Y5N ONE (09:04)
[2020-05-27] MEDS: DIVALPROEX SODIUM 500 MG TABLET E.C. PO SCH ×2 (09:51→21:10)
[2020-05-27] MEDS: CITALOPRAM HYDROBROMIDE 20 MG TABLET PO SCH (09:51)
[2020-05-27] MEDS: NICOTINE 7 MG/24 HOURS TOPICAL PATCH TD SCH (09:51)
[2020-05-27] MEDS: PRENATAL VITAMINS W/ FOLIC ACID TABLET (FP) PO SCH (09:51)
[2020-05-27] MEDS: THIAMINE HCL 100 MG TABLET (FP) PO SCH (21:10)
[2020-05-27] MEDS: MELATONIN 5 MG TABLETS PO SCH (21:10)
[2020-05-28] MEDS: PRENATAL VITAMINS W/ FOLIC ACID TABLET (FP) PO SCH (09:36)
[2020-05-28] MEDS: CITALOPRAM HYDROBROMIDE 20 MG TABLET PO SCH (09:36)
[2020-05-28] MEDS: DIVALPROEX SODIUM 500 MG TABLET E.C. PO SCH ×2 (09:36→21:38)
[2020-05-28] MEDS: NICOTINE 7 MG/24 HOURS TOPICAL PATCH TD SCH (09:37)
[2020-05-28] MEDS: THIAMINE HCL 100 MG TABLET (FP) PO SCH (21:38)
[2020-05-28] MEDS: MELATONIN 5 MG TABLETS PO SCH (21:38)
[2020-05-29] MEDS: DIVALPROEX SODIUM 500 MG TABLET E.C. PO SCH ×2 (09:37→21:35)
[2020-05-29] MEDS: CITALOPRAM HYDROBROMIDE 20 MG TABLET PO SCH (09:38)
[2020-05-29] MEDS: NICOTINE 7 MG/24 HOURS TOPICAL PATCH TD SCH (09:38)
[2020-05-29] MEDS: PRENATAL VITAMINS W/ FOLIC ACID TABLET (FP) PO SCH (09:38)
[2020-05-29] MEDS: THIAMINE HCL 100 MG TABLET (FP) PO SCH (21:35)
[2020-05-29] MEDS: MELATONIN 5 MG TABLETS PO SCH (21:35)
[2020-05-30] MEDS: CITALOPRAM HYDROBROMIDE 20 MG TABLET PO SCH (09:22)
[2020-05-30] MEDS: NICOTINE 7 MG/24 HOURS TOPICAL PATCH TD SCH (09:23)
[2020-05-30] MEDS: PRENATAL VITAMINS W/ FOLIC ACID TABLET (FP) PO SCH (09:23)
[2020-05-30] MEDS: DIVALPROEX SODIUM 500 MG TABLET E.C. PO SCH ×2 (09:23→21:15)
[2020-05-30] MEDS ORDERED: MENTHOL/PHENOL 1 EACH UD MM PRN (14:56)
--- NOTE | 2020-05-30 15:02 | PN ---
S Progress Note Note: pt c/o sinus drip and throat discomfort. Denies cough, n/v/d, or fever. Vital Signs - 24 hr 05/29/20 05/29/20 05/30/20 15:36 20:35 05:55 Temperature 97.5 F L 97.8 F Pulse Rate 61 Respiratory 18 Rate Blood Pressure 120/77 O2 Sat by Pulse 96 97 96 Oximetry (%) Laboratory Tests 05/09/20 05/10/20 05/10/20 16:35 07:30 07:30 WBC 4.8 RBC 4.97 Hgb 13.1 Hct 40.6 MCV 81.7 MCH 26.3 MCHC 32.2 RDW 14.8 Plt Count 266 MPV 8.2 Sodium Potassium Chloride Carbon Dioxide Anion Gap BUN Creatinine Est GFR (CKD-EPI)AfAm Est GFR (CKD-EPI)NonAf Random Glucose Calcium Total Bilirubin AST ALT Alkaline Phosphatase Total Protein Albumin Syphilis Serology Non-reactive COVID-19 ([facility]) Not detected 05/10/20 05/24/20 07:30 10:30 WBC RBC Hgb Hct MCV MCH MCHC RDW Plt Count MPV Sodium 141 Potassium 4.1 Chloride 107 Carbon Dioxide 27 Anion Gap 7 L BUN 14.4 Creatinine 1.0 Est GFR (CKD-EPI)AfAm 98.46 Est GFR (CKD-EPI)NonAf 84.95 Random Glucose 104 Calcium 8.3 L Total Bilirubin 0.4 AST 15 ALT 20 Alkaline Phosphatase 48 Total Protein 6.3 L Albumin 3.0 L Syphilis Serology COVID-19 ([facility]) Not detected Alert o x 3 nad oob ambulating with steady gait Heent:Normocephalic,eomi,mm wnl Cepacol Lozenges as directed Mucinex 600 mg po BID x 5 days
[2020-05-30] MEDS ORDERED: PT OWN MED DRAWER 7, Y5N ONE (20:05)
[2020-05-30] MEDS: MELATONIN 5 MG TABLETS PO SCH (21:15)
[2020-05-30] MEDS: guaiFENesin 600 MG TABLET.ER (FP) PO SCH (21:15)
[2020-05-30] MEDS: THIAMINE HCL 100 MG TABLET (FP) PO SCH (21:15)
[2020-05-31] MEDS ORDERED: PT OWN MED DRAWER 7, Y5N ONE ×2 (08:54→20:47)
[2020-05-31] MEDS: guaiFENesin 600 MG TABLET.ER (FP) PO SCH ×2 (10:09→21:12)
[2020-05-31] MEDS: DIVALPROEX SODIUM 500 MG TABLET E.C. PO SCH ×2 (10:09→21:13)
[2020-05-31] MEDS: PRENATAL VITAMINS W/ FOLIC ACID TABLET (FP) PO SCH (10:09)
[2020-05-31] MEDS: CITALOPRAM HYDROBROMIDE 20 MG TABLET PO SCH (10:09)
[2020-05-31] MEDS: NICOTINE 7 MG/24 HOURS TOPICAL PATCH TD SCH (10:10)
[2020-05-31] MEDS: THIAMINE HCL 100 MG TABLET (FP) PO SCH (21:13)
[2020-05-31] MEDS: MELATONIN 5 MG TABLETS PO SCH (21:13)
[2020-06-01] MEDS: DIVALPROEX SODIUM 500 MG TABLET E.C. PO SCH ×2 (09:35→21:45)
[2020-06-01] MEDS: PRENATAL VITAMINS W/ FOLIC ACID TABLET (FP) PO SCH (09:35)
[2020-06-01] MEDS: NICOTINE 7 MG/24 HOURS TOPICAL PATCH TD SCH (09:35)
[2020-06-01] MEDS: CITALOPRAM HYDROBROMIDE 20 MG TABLET PO SCH (09:35)
[2020-06-01] MEDS: guaiFENesin 600 MG TABLET.ER (FP) PO SCH ×2 (09:35→21:45)
[2020-06-01] MEDS ORDERED: PT OWN MED DRAWER 7, Y5N ONE (20:02)
[2020-06-01] MEDS: THIAMINE HCL 100 MG TABLET (FP) PO SCH (21:45)
[2020-06-01] MEDS: MELATONIN 5 MG TABLETS PO SCH (21:45)
[2020-06-02] MEDS: CITALOPRAM HYDROBROMIDE 20 MG TABLET PO SCH (09:36)
[2020-06-02] MEDS: PRENATAL VITAMINS W/ FOLIC ACID TABLET (FP) PO SCH (09:36)
[2020-06-02] MEDS: guaiFENesin 600 MG TABLET.ER (FP) PO SCH ×2 (09:36→21:03)
[2020-06-02] MEDS: DIVALPROEX SODIUM 500 MG TABLET E.C. PO SCH ×2 (09:36→21:02)
[2020-06-02] MEDS: NICOTINE 7 MG/24 HOURS TOPICAL PATCH TD SCH (09:37)
[2020-06-02] MEDS: THIAMINE HCL 100 MG TABLET (FP) PO SCH (21:03)
[2020-06-02] MEDS: MELATONIN 5 MG TABLETS PO SCH (21:03)
[2020-06-03] MEDS: guaiFENesin 600 MG TABLET.ER (FP) PO SCH ×2 (09:54→21:58)
[2020-06-03] MEDS: PRENATAL VITAMINS W/ FOLIC ACID TABLET (FP) PO SCH (09:54)
[2020-06-03] MEDS: DIVALPROEX SODIUM 500 MG TABLET E.C. PO SCH ×2 (09:54→21:58)
[2020-06-03] MEDS: CITALOPRAM HYDROBROMIDE 20 MG TABLET PO SCH (09:54)
[2020-06-03] MEDS: NICOTINE 7 MG/24 HOURS TOPICAL PATCH TD SCH (09:55)
[2020-06-03] MEDS: THIAMINE HCL 100 MG TABLET (FP) PO SCH (21:58)
[2020-06-03] MEDS: MELATONIN 5 MG TABLETS PO SCH (21:59)
[2020-06-04] MEDS: DIVALPROEX SODIUM 500 MG TABLET E.C. PO SCH ×2 (09:52→21:07)
[2020-06-04] MEDS: NICOTINE 7 MG/24 HOURS TOPICAL PATCH TD SCH (09:52)
[2020-06-04] MEDS: PRENATAL VITAMINS W/ FOLIC ACID TABLET (FP) PO SCH (09:52)
[2020-06-04] MEDS: guaiFENesin 600 MG TABLET.ER (FP) PO SCH (09:52)
[2020-06-04] MEDS: CITALOPRAM HYDROBROMIDE 20 MG TABLET PO SCH (09:52)
[2020-06-04] MEDS: THIAMINE HCL 100 MG TABLET (FP) PO SCH (21:07)
[2020-06-04] MEDS: MELATONIN 5 MG TABLETS PO SCH (21:07)
[2020-06-05] MEDS: NICOTINE 7 MG/24 HOURS TOPICAL PATCH TD SCH (10:08)
[2020-06-05] MEDS: CITALOPRAM HYDROBROMIDE 20 MG TABLET PO SCH (10:08)
[2020-06-05] MEDS: PRENATAL VITAMINS W/ FOLIC ACID TABLET (FP) PO SCH (10:08)
[2020-06-05] MEDS: DIVALPROEX SODIUM 500 MG TABLET E.C. PO SCH ×2 (10:08→21:27)
[2020-06-05] MEDS: THIAMINE HCL 100 MG TABLET (FP) PO SCH (21:27)
[2020-06-05] MEDS: MELATONIN 5 MG TABLETS PO SCH (21:27)
[2020-06-06] MEDS: DIVALPROEX SODIUM 500 MG TABLET E.C. PO SCH ×2 (09:30→21:11)
[2020-06-06] MEDS: CITALOPRAM HYDROBROMIDE 20 MG TABLET PO SCH (09:30)
[2020-06-06] MEDS: PRENATAL VITAMINS W/ FOLIC ACID TABLET (FP) PO SCH (09:30)
[2020-06-06] MEDS: NICOTINE 7 MG/24 HOURS TOPICAL PATCH TD SCH (09:31)
[2020-06-06] MEDS: THIAMINE HCL 100 MG TABLET (FP) PO SCH (21:11)
[2020-06-06] MEDS: MELATONIN 5 MG TABLETS PO SCH (21:12)
[2020-06-07] MEDS: CITALOPRAM HYDROBROMIDE 20 MG TABLET PO SCH (09:48)
[2020-06-07] MEDS: PRENATAL VITAMINS W/ FOLIC ACID TABLET (FP) PO SCH (09:48)
[2020-06-07] MEDS: DIVALPROEX SODIUM 500 MG TABLET E.C. PO SCH ×2 (09:48→21:10)
[2020-06-07] MEDS: NICOTINE 7 MG/24 HOURS TOPICAL PATCH TD SCH (09:49)
[2020-06-07] MEDS: MELATONIN 5 MG TABLETS PO SCH (21:10)
[2020-06-07] MEDS: THIAMINE HCL 100 MG TABLET (FP) PO SCH (21:10)
[2020-06-08] MEDS: DIVALPROEX SODIUM 500 MG TABLET E.C. PO SCH ×2 (09:35→21:05)
[2020-06-08] MEDS: CITALOPRAM HYDROBROMIDE 20 MG TABLET PO SCH (09:35)
[2020-06-08] MEDS: PRENATAL VITAMINS W/ FOLIC ACID TABLET (FP) PO SCH (09:35)
[2020-06-08] MEDS: NICOTINE 7 MG/24 HOURS TOPICAL PATCH TD SCH (10:58)
[2020-06-08] MEDS: THIAMINE HCL 100 MG TABLET (FP) PO SCH (21:05)
[2020-06-08] MEDS: MELATONIN 5 MG TABLETS PO SCH (21:06)
[2020-06-09] MEDS: PRENATAL VITAMINS W/ FOLIC ACID TABLET (FP) PO SCH (09:36)
[2020-06-09] MEDS: CITALOPRAM HYDROBROMIDE 20 MG TABLET PO SCH (09:36)
[2020-06-09] MEDS: NICOTINE 7 MG/24 HOURS TOPICAL PATCH TD SCH (09:36)
[2020-06-09] MEDS: DIVALPROEX SODIUM 500 MG TABLET E.C. PO SCH ×2 (09:36→21:28)
[2020-06-09] MEDS: MELATONIN 5 MG TABLETS PO SCH (21:28)
[2020-06-09] MEDS: THIAMINE HCL 100 MG TABLET (FP) PO SCH (21:28)
[2020-06-09] MEDS: TOLNAFTATE 1% POWDER 45 GM POW TP SCH (21:29)
[2020-06-10] MEDS: DIVALPROEX SODIUM 500 MG TABLET E.C. PO SCH ×2 (09:46→21:07)
[2020-06-10] MEDS: PRENATAL VITAMINS W/ FOLIC ACID TABLET (FP) PO SCH (09:46)
[2020-06-10] MEDS: CITALOPRAM HYDROBROMIDE 20 MG TABLET PO SCH (09:46)
[2020-06-10] MEDS: TOLNAFTATE 1% POWDER 45 GM POW TP SCH ×2 (09:47→21:07)
[2020-06-10] MEDS: NICOTINE 7 MG/24 HOURS TOPICAL PATCH TD SCH (09:47)
--- NOTE | 2020-06-10 11:04 | PN ---
[facility] Progress Note Note: Patient is scheduled for discharge tomorrow. Scripts for 30 days supply of medications(Celexa 20 mg/day, Depakote 500 mg/bid) will be electronically transmitted to [facility], [place] [address]
[2020-06-10] MEDS: THIAMINE HCL 100 MG TABLET (FP) PO SCH (21:07)
[2020-06-10] MEDS: MELATONIN 5 MG TABLETS PO SCH (21:07)
[2020-06-11 08:03] VITALS: BP 135/76; PULSE 64; TEMP 97.5
--- NOTE | 2020-06-11 08:49 | DS ---
[facility] Discharge Summary - [facility] Discharge Summary Admission Date: 05/09/20 Discharge Date: 06/11/20 - History Present History: Alcohol dependence, Cannabis dependence, Cocaine dependence Pertinent Past History: Mr. Anderson presents to [facility] with alcohol use disorder. He was last here and completed detox between January 31 and February 02, 2020. He left AMA and refused aftercare referral. PMH: None PSH: skin graft left leg PsycH: bipolar: Depakote 500 bid, Celexa, last taken 1 week ago SOC: now lives in [facility] Legal: none - Discharge Physical Exam Vital Signs: Vital Signs Temperature 97.5 F L 06/11/20 06:30 Pulse Rate 64 06/11/20 06:30 Respiratory Rate 18 06/11/20 06:30 Blood Pressure 135/76 06/11/20 06:30 O2 Sat by Pulse Oximetry (%) 96 06/11/20 06:30 Pertinent Admission Physical Exam Findings: Physical General Appearance: No Apparent Distress, HEENTM: EOMI, Normocephalic, Respiratory:No Respiratory Distress, No Accessory Muscle Use Neck: Supple Abdominal: +Bowel Sounds, Musculoskeletal: Gait Steady - Treatment Discharge Condition: Discharge condition good (medically stable for discharge.), Outpatient referral accepted (Patient will go to [facility]) Hospital Course: Patient attended groups, had 1:1 with his counselor. He was seen by psychiatric service. He had no acute or urgent medical problems. He was adherent to his medication regimen and treatment plan. - Medication Discharge Medications: Ambulatory Orders Citalopram Hydrobromide [Celexa -] 20 mg PO DAILY #30 tablet 06/10/20 Divalproex [Depakote -] 500 mg PO BID #60 tablet.ec 06/10/20 - Medication-Assisted Treatment (MAT) Medication-Assisted Treatment (MAT): No - Discharge Instructions Diet, activity, other medical instructions: Diet: as tolerated Activity: as tolerated Other medical instructions: Please follow up with aftercare referral. - Diagnosis (1) Alcohol dependence with uncomplicated withdrawal Current Visit: Yes Status: Chronic (2) Cocaine dependence, uncomplicated Current Visit: Yes Status: Chronic (3) Cannabis dependence, uncomplicated Current Visit: No Status: Chronic - Follow-up Referral Minutes to complete discharge: 15 - AMA Did Patient Leave Against Medical Advice: No
== END 2020-06-11 08:57 | disposition home or self-care (01) | DRG 895 ==
LOC: YASAS 12:02 → Y6N 16:22 → Y3W 05-13 11:45
PROVIDERS: ADMIT Allergy & Immunology; ATTEND Allergy & Immunology
PROC: HZ42ZZZ Group Counseling for Substance Abuse Treatment, Cognitive-Behavioral (ICD-10-PCS; principal; 2020-05-09)
PROC: HZ2ZZZZ Detoxification Services for Substance Abuse Treatment (ICD-10-PCS; 2020-05-09)
DX: F10.20 Alcohol dependence, uncomplicated (principal); F14.20 Cocaine dependence, uncomplicated; F19.282 Other psychoactive substance dependence with psychoactive substance-induced sleep disorder; F12.20 Cannabis dependence, uncomplicated; F31.9 Bipolar disorder, unspecified; R76.11 Nonspecific reaction to tuberculin skin test without active tuberculosis; Z94.5 Skin transplant status
CPT/HCPCS: 36415; 80053; 85027; 86780; U0003